=== PATIENT | female | born 1940 | race Caucasian/White ===

== ENCOUNTER 2019-10-22 12:15 | Outpatient (CLI) | payer OTHER, SELFPAY ==
[2019-10-22 13:01] LABS: Hematocrit 31.7 % (37.0-47.0); Mean Corpuscular HGB Conc 31.5 g/dl (32-36); Mean Corpuscular Hemoglobin 26.9 pg (26-34); Mean Corpuscular Volume 85.2 fl (80-100); Mean Platelet Volume 10.5 fl (7.4-10.4); Platelet Count Result 199 k/mm3 (150-375); Red Blood Count 3.72 M/mm3 (4.2-5.4); Red Cell Distribution Width 13.5 % (11.5-14.5); White Blood Count 4.8 K/mm3 (4.5-10.0)
[2019-10-22 13:12] LABS: Alanine Aminotransferase 12 U/L (4-35); Albumin Level 4.4 g/dL (3.5-5.1); Alkaline Phosphatase 46 U/L (38-126); Anion Gap 8 mmol/L (8-16); Aspartate Amino Transferase 24 U/L (14-36); Bilirubin,Total 0.4 mg/dL (0.2-1.3); Blood Urea Nitrogen 16 mg/dL (7-17); Calcium 8.9 mg/dL (8.4-10.2); Carbon Dioxide 34 mmol/L (22-30); Chloride 93 mmol/L (98-107); Cholesterol 202 mg/dL (0-200); Estimated Glomerular Filt Rate > 60; Glucose 124 mg/dL (65-105); HDL Direct 110 mg/dL; Potassium 3.3 mmol/L (3.4-5.0); Sodium 135 mmol/L (137-145); Triglycerides 75 mg/dL (<150)
[2019-10-22 13:19] LABS: Add Urine Microscopic? YES; Appearance Urine Clear (Clear); Bacteria Urine Trace /hpf; Bilirubin Urine Negative (Negative); Blood Urine Negative (Negative); Color Urine Yellow (Yellow); Glucose Urine UA Negative (Negative); Hyaline Casts Urine 15-19 /lpf; Ketones Urine Negative (Negative); Leukocyte Esterase Ur 1+ LEU/UL (Negative); Mucus Urine Rare /lpf; Nitrate Urine Negative (Negative); Protein Urine Negative (Negative); Specific Grav Ur 1.014 (1.001-1.035); Squamous Epithelial Cell Urine Few /hpf (Few); Urobilinogen Urine Negative mg/dL (<2.0)
[2019-10-22 13:22] LABS: LDL Cholesterol Direct 68 mg/dL
[2019-10-22 14:04] LABS: Vitamin D 25 Hydroxy 34.5 ng/mL
== END 2019-10-22 12:16 | disposition home or self-care (01) ==
PROVIDERS: PCP Internal Medicine; Visit Provider Nurse Practitioner
DX: R35.0 Frequency of micturition (principal); E55.9 Vitamin D deficiency, unspecified; D64.9 Anemia, unspecified; E78.5 Hyperlipidemia, unspecified; E03.9 Hypothyroidism, unspecified
CPT/HCPCS: 36415; 80053; 80061; 81001; 82306; 84443; 85027; 87086

== ENCOUNTER 2019-12-10 11:53 | Outpatient (CLI) | payer OTHER, SELFPAY ==
[2019-12-10 13:18] LABS: Add Urine Microscopic? YES; Appearance Urine Clear (Clear); Bacteria Urine Trace /hpf; Bilirubin Urine Negative (Negative); Blood Urine Negative (Negative); Color Urine Straw (Yellow); Glucose Urine UA Negative (Negative); Ketones Urine Negative (Negative); Leukocyte Esterase Ur Trace LEU/UL (Negative); Mucus Urine Rare /lpf; Nitrate Urine Negative (Negative); Protein Urine Negative (Negative); RBC Urine 0-2 /hpf (0-2); Squamous Epithelial Cell Urine Occasional /hpf (Few); Urobilinogen Urine Negative mg/dL (<2.0); WBC Urine 0-3 /hpf
== END 2019-12-10 11:54 | disposition home or self-care (01) ==
PROVIDERS: PCP Internal Medicine; Visit Provider Internal Medicine
DX: R30.0 Dysuria (principal)
CPT/HCPCS: 81001

== ENCOUNTER 2020-01-06 13:55 | Outpatient (CLI) | payer OTHER, SELFPAY ==
[2020-01-06 14:43] LABS: Add Urine Microscopic? YES; Appearance Urine Clear (Clear); Bacteria Urine Trace /hpf; Bilirubin Urine Negative (Negative); Blood Urine Negative (Negative); Color Urine Yellow (Yellow); Glucose Urine UA Negative (Negative); Ketones Urine Negative (Negative); Leukocyte Esterase Ur 2+ LEU/UL (Negative); Mucus Urine Rare /lpf; Nitrate Urine Negative (Negative); Protein Urine Negative (Negative); RBC Urine 0-2 /hpf (0-2); Specific Grav Ur 1.012 (1.001-1.035); Squamous Epithelial Cell Urine Few /hpf (Few); Urobilinogen Urine Negative mg/dL (<2.0); WBC Urine 0-3 /hpf
== END 2020-01-06 13:56 | disposition home or self-care (01) ==
PROVIDERS: PCP Internal Medicine; Visit Provider Internal Medicine
DX: N39.9 Disorder of urinary system, unspecified (principal)
CPT/HCPCS: 81001

== ENCOUNTER 2020-02-29 14:21 | Outpatient (CLI) | payer OTHER, SELFPAY ==
[2020-02-29 15:00] LABS: Hematocrit 30.8 % (37.0-47.0); Hemoglobin 9.9 g/dL (12.0-15.0)
[2020-02-29 15:14] LABS: Alanine Aminotransferase 12 U/L (4-35); Albumin Level 4.1 g/dL (3.5-5.1); Alkaline Phosphatase 51 U/L (38-126); Anion Gap 3 mmol/L (8-16); Aspartate Amino Transferase 25 U/L (14-36); Bilirubin,Total 0.2 mg/dL (0.2-1.3); Blood Urea Nitrogen 31 mg/dL (7-17); Calcium 9.1 mg/dL (8.4-10.2); Carbon Dioxide 33 mmol/L (22-30); Chloride 99 mmol/L (98-107); Cholesterol 184 mg/dL (0-200); Estimated Glomerular Filt Rate > 60; Glucose 97 mg/dL (65-105); HDL Direct 97 mg/dL; Potassium 3.8 mmol/L (3.4-5.0); Sodium 135 mmol/L (137-145); Triglycerides 66 mg/dL (<150)
[2020-02-29 15:25] LABS: LDL Cholesterol Direct 63 mg/dL
== END 2020-02-29 14:22 | disposition home or self-care (01) ==
LOC: ANHLAB 14:23
PROVIDERS: PCP Internal Medicine; Visit Provider Internal Medicine
DX: N39.0 Urinary tract infection, site not specified (principal); D64.9 Anemia, unspecified; I10 Essential (primary) hypertension; I50.30 Unspecified diastolic (congestive) heart failure; E03.9 Hypothyroidism, unspecified; E78.5 Hyperlipidemia, unspecified; Z79.899 Other long term (current) drug therapy
CPT/HCPCS: 36415; 80053; 80061; 84443; 85014; 85018; 87077; 87086; 87088

== ENCOUNTER 2020-10-03 14:12 | Outpatient (CLI) | payer OTHER, SELFPAY ==
[2020-10-03 14:57] LABS: Alanine Aminotransferase 18 U/L (4-35); Albumin Level 4.6 g/dL (3.5-5.1); Alkaline Phosphatase 55 U/L (38-126); Anion Gap 6 mmol/L (8-16); Aspartate Amino Transferase 29 U/L (14-36); Bilirubin,Total 0.5 mg/dL (0.2-1.3); Blood Urea Nitrogen 20 mg/dL (7-17); Calcium 9.3 mg/dL (8.4-10.2); Carbon Dioxide 32 mmol/L (22-30); Chloride 99 mmol/L (98-107); Cholesterol 178 mg/dL (0-200); Estimated Glomerular Filt Rate 53; Glucose 99 mg/dL (65-110); HDL Direct 105 mg/dL; Potassium 3.4 mmol/L (3.4-5.0); Sodium 137 mmol/L (137-145); Triglycerides 62 mg/dL (<150)
[2020-10-03 15:08] LABS: LDL Cholesterol Direct 52 mg/dL
[2020-10-03 15:34] LABS: Vitamin D 25 Hydroxy 45.4 ng/mL
== END 2020-10-03 14:13 | disposition home or self-care (01) ==
LOC: ANHLAB 14:17
PROVIDERS: PCP Internal Medicine; Visit Provider Nurse Practitioner
DX: E78.5 Hyperlipidemia, unspecified (principal); E03.9 Hypothyroidism, unspecified; E55.9 Vitamin D deficiency, unspecified
CPT/HCPCS: 36415; 80053; 80061; 82306; 84443

== ENCOUNTER 2021-03-18 06:57 | Inpatient (IN) | payer OTHER, SELFPAY ==
[2021-03-18] VITALS (31 sets, daily range): BP systolic 93–159; BP diastolic 49–111; PULSE 59–81; RESP 14–21; TEMP 36.3–36.4; O2SAT 94–100
--- NOTE | ~2021-03-18 | CT_ITS ---
EXAMINATION: CT abdomen pelvis w con DATE: 03/20/2021 11:54 INDICATION: Weight loss. Nausea. TECHNIQUE: Computed tomography (CT) of the abdomen and pelvis was performed with 100 mL Omnipaque 350 intravenous contrast. Automated exposure control and iterative reconstruction technique were employe d. The dose-length product was 170.14 mGy-cm. COMPARISON: None. FINDINGS: The visualized portions of the lung bases demonstrates mild atelectasis. There are small pl eural effusions. The heart size is normal. There are coronary artery calcifications. No pericardial e ffusion. A calcification the liver is consistent with old granulomatous disease. The spleen is normal . There are gallstones in the gallbladder, which is normal in size. The pancreas and adrenal glands a re normal. There are cysts in right kidney measuring up to 10 mm. There is moderate atrophy of left k idney. There is diverticulosis of the colon without evidence of diverticulitis. There is wall thicken ing and mucosal hyperemia from the distal transverse colon to the rectum. There are no dilated loops of bowel. The appendix is not visualized. There is a small volume of ascites. There are no pathologic ally enlarged lymph nodes. There is edema of the abdominal fat and body wall fat. There is thoracolum bar dextroscoliosis and severe spondylosis. IMPRESSION: 1. Wall thickening and mucosal hyperemia from the distal transverse colon to the rectum, consistent w ith colitis. 2. Small volume of ascites. 3. Small pleural effusions. Reviewed, dictated and finalized at location E. TEGY MANAGER IMPRESSION: 1. Wall thickening and mucosal hyperemia from the distal transverse colon to th e rectum, consistent with colitis. 2. Small volume of ascites. 3. Small pleural effusions.
--- NOTE | ~2021-03-18 | XR_ITS ---
EXAMINATION: XR barium swallow modified DATE: 03/20/2021 13:35 INDICATION: Dysphagia TECHNIQUE: Modified barium esophagram was performed by myself to administered fluoroscopy, in conjun ction with speech pathologist who administered barium in varying consistencies as per speech patholog ist documentation. This was recorded on tape. A single fluoroscopic spot image was recorded. The DAP for this procedure was 1.423 Gycm2. Fluoroscopy exposure time was 2.3 minutes. FINDINGS: Oral stage: Adequate function. Pharyngeal phase: Adequate function. Laryngeal penetration: Flash with thin liquids. Aspiration: None. Laryngeal sensitivity: Present. IMPRESSION: Flash laryngeal penetration with thin liquids. Please refer to speech pathologist finding s and specific feeding recommendations. Reviewed, dictated and finalized at location A. TION ECONOMIST IMPRESSION: Flash laryngeal penetration with thin liquids. Please refer to asha wang pathologist findings and specific feeding recommendations.
--- NOTE | ~2021-03-18 | XR_ITS ---
EXAMINATION: XR chest 1V portable INDICATION: Shortness of breath TECHNIQUE: Portable AP chest at 0858 hours COMPARISON: 08/24/2018 FINDINGS: The lungs are free of acute opacities. There is no pleural effusion or pneumothorax. The he art size is normal. Median sternotomy wires are consistent with prior cardiac surgery. Thoracolumbar scoliosis is noted. IMPRESSION: 1. No acute cardiopulmonary abnormality. Reviewed, dictated and finalized at location B. EL ORDINARY SEAMAN
[2021-03-18 07:04] LABS: Glucose Point of Care 31 mg/dl (65-105)
[2021-03-18] MEDS: DEXTROSE 50% 25 GM/50 ML SYRINGE IV PUSH (07:06)
[2021-03-18] MEDS: DEXTROSE 10% 1,000 ML 50 ML IV CONT (07:16)
[2021-03-18 07:34] LABS: Glucose Point of Care 126 mg/dl (65-105)
[2021-03-18 07:42] LABS: Alanine Aminotransferase 21 U/L (4-35); Alkaline Phosphatase 281 U/L (38-126); Anion Gap 10 mmol/L (8-16); Aspartate Amino Transferase 39 U/L (14-36); Bilirubin,Total 0.7 mg/dL (0.2-1.3); Blood Urea Nitrogen 72 mg/dL (7-17); Calcium 8.5 mg/dL (8.4-10.2); Carbon Dioxide 26 mmol/L (22-30); Chloride 94 mmol/L (98-107); Estimated CRCL calculation 17 ml/min; Estimated Glomerular Filt Rate 39; Glucose 253 mg/dL (65-110); Potassium 3.8 mmol/L (3.4-5.0); Sodium 130 mmol/L (137-145)
[2021-03-18 08:12] LABS: Basophils Percent Auto 0.3 % (0.2-1.2); Hematocrit 38.6 % (37.0-47.0); Hemoglobin 12.6 g/dL (12.0-15.0); Immature Granulocyte Absolute 0.03 K/mm3 (0.00-0.031); Immature Granulocyte Percent A 0.4 % (0-0.5); Lymphocytes Absolute Auto 0.58 K/mm3 (0.9-3.2); Lymphocytes Percent Auto 8.1 % (18.3-44.2); Mean Corpuscular HGB Conc 32.6 g/dl (32-36); Mean Corpuscular Hemoglobin 26.8 pg (26-34); Mean Corpuscular Volume 82.1 fl (80-100); Mean Platelet Volume 9.9 fl (7.4-10.4); Monocytes Absolute Auto 0.5 K/mm3 (0.1-0.6); Neutrophils Percent Auto 84.2 % (45.5-73.1); Platelet Count Result 214 k/mm3 (150-375); Red Cell Distribution Width 15.1 % (11.5-14.5); White Blood Count 7.1 K/mm3 (4.5-10.0)
[2021-03-18 08:18] LABS: Add Urine Microscopic? YES; Appearance Urine Clear (Clear); Bacteria Urine Trace /hpf; Bilirubin Urine Negative (Negative); Blood Urine Negative (Negative); Color Urine Straw (Yellow); Glucose Urine UA 1+ mg/dL (Negative); Ketones Urine Trace mg/dL (Negative); Leukocyte Esterase Ur 2+ LEU/UL (Negative); Mucus Urine Rare /lpf; Nitrate Urine Negative (Negative); Protein Urine Negative (Negative); RBC Urine 0-2 /hpf (0-2); Squamous Epithelial Cell Urine Few /hpf (Few); Transitional Epi Cells Urine Rare /hpf (None Seen); Urobilinogen Urine Negative mg/dL (<2.0); WBC Urine 31-50 /hpf
[2021-03-18] MEDS: SODIUM CHLORIDE 0.9% IV 1,000 ML 150 ML IV CONT (08:30)
[2021-03-18] MEDS: SODIUM CHLORIDE 0.9% IV 500 ML 999 ML IV CONT (08:30)
--- NOTE | 2021-03-18 10:13 | ED.GENADULT ---
HPI - General Adult General Chief complaint: Nausea/Vomiting/Diarrhea Stated complaint: N/V/D X 3 DAYS Time Seen by Provider: 03/18/21 07:00 Source: patient and family Mode of arrival: EMS Limitations: no limitations History of Present Illness HPI narrative: 81-year-old with a history of aortic valve replacement, who was brought in from home with complaints of marked weakness for last 4 days. Daughter who is at the bedside mentions that she is unable to walk eat or drink for last 3 days she states she is extremely nauseated. No significant vomiting. She is incontinent of stool. She denies any fever or chills. Daughter states that her elderly father stays with her and he is unable to manage. Related Data Allergies Allergy/AdvReac Type Severity Reaction Status Date / Time azithromycin Allergy Severe DIFFICULTY Verified 03/18/21 07:06 BREATHING ciprofloxacin Allergy Unknown Difficulty Verified 03/18/21 07:06 Breathing levofloxacin Allergy Unknown Rash Verified 03/18/21 07:06 Penicillins Allergy Unknown Rash Verified 03/18/21 07:06 erythromycin base AdvReac Unknown Nausea And Verified 03/18/21 10:14 Vomiting codeine AdvReac Difficulty Verified 03/18/21 07:06 Breathing Review of Systems Review of Systems: All systems reviewed & are unremarkable except as noted in HPI and below Constitutional: Constitutional: Reports no additional constitutional complaints Eyes: Eyes: Reports no additional eye complaints ENT: Reports system reviewed and no additional complaints, except as documented Cardiovascular: Cardiovascular: Reports no additional cardiovascular complaints Respiratory: Respiratory: Reports no additional respiratory complaints Gastrointestinal: Gastrointestinal: Reports diarrhea and Reports nausea Musculoskeletal: Musculoskeletal: Reports no additional musculoskeletal complaints PMFSH Past Medical History Medical History Dysphagia H/O coronary angiogram Hypokalemia Nausea Surgical History Surgical History H/O aortic valve replacement H/O cataract removal with insertion of prosthetic lens H/O esophagogastroduodenoscopy H/O: hysterectomy Hx of colonoscopy with polypectomy Family History Family History Father Hypertension Patient's father is Acute myocardial infarction Sibling Hypertension Mother Cerebrovascular accident Other Family history of bipolar disorder Social History Social History Smoking status: Never smoker Second hand tobacco smoke exposure: Yes Alcohol intake: never Substance use: never Gender identity (if verbalized by the patient): Female Exam Narrative: GENERAL: thin and frail , hard of hearing and in no acute distress. HEAD: Normocephalic, atraumatic. EYES: PERRLA and EOMI. NECK: Supple. CHEST: Clear to auscultation. No respiratory distress. HEART: Regular rate and rhythm. No murmur heard. Normal peripheral pulses. ABDOMEN: Soft, nontender, nondistended, normal active bowel sounds. EXTREMITIES: Normal range of motion. No edema. SKIN: Warm, dry, no rash. NEURO: No focal deficits. Alert and oriented x3. PSYCH: Normal mood and affect. Course Course Emergency Course: Initial blood sugar was 31 upon arrival I did give her half amp of D50 and started on D10 drip. Patient became more alert and was able to answer all the questions. I discussed lab work with the patient and the daughter who is at the bedside prefers her to be admitted. Discussed with Dr. Gomes agreed to admit the patient. Vital Signs Vital signs: Vital Signs Temperature 36.3 C L 03/18/21 07:08 Pulse Rate 63 03/18/21 07:08 Respiratory Rate 19 03/18/21 07:08 Blood Pressure 115/90 03/18/21 07:08 Pulse Oximetry 100 03/18/21 07:08
[2021-03-18 10:22] LABS: Glucose Point of Care 189 mg/dl (65-105)
[2021-03-18 10:56] LABS: SARS-CoV-2 RNA PCR Negative
--- NOTE | 2021-03-18 13:04 | PM.IMHP ---
H&P: HPI History of Present Illness Date/Time: 03/18/21 13:04 this is an 81-year-old female patient who was brought in from home with complaints of marked weakness for last 4 days. When I saw the patient the daughter was not at the bedside. The daughter had stepped out. However the ER noted that the daughter stated that the patient is unable to walk or eat or drink for the last 3 days. She has been extremely nauseated. No significant vomiting. She is incontinent of stool she denied any fever chills. The patient lives with her and he is unable to care for the patient at this time. The patient had a train front of her and I did attempt to get her to eat her mass potato his and she only wanted to drink water. Her COVID test was found to be negative. Her sodium level was found to be 130. Creatinine 1.3. Blood sugar 189 and previously 126. The patient was found have a UTI. She is very hard of hearing. Chest x-ray was read as no acute cardiopulmonary abnormality. The patient has multiple drug allergies and she had been started on Rocephin. IV fluids. The patient was initially admitted to inpatient status and was changed to observation. Date of service 03/18/2021. Chief Complaint: Weakness Review of Systems Constitutional: Constitutional: Reports as per HPI and Reports no additional constitutional complaints Eyes: Eyes: Reports as per HPI and Reports no additional eye complaints ENT: Reports system reviewed and no additional complaints, except as documented and Reports Normal hearing present Cardiovascular: Cardiovascular: Reports no additional cardiovascular complaints Respiratory: Respiratory: Reports as per HPI and Reports no additional respiratory complaints Gastrointestinal: Gastrointestinal: Reports as per HPI and Reports no additional gastrointestinal complaints Genitourinary: Genitourinary: Reports no additional female genitourinary complaints Musculoskeletal: Musculoskeletal: Reports no additional musculoskeletal complaints Integumentary/Breasts: Skin/Breast: Reports system reviewed and no additional complaints, except as docu Neurologic: Reports system reviewed and no additional complaints, except as documented and Reports Normal hearing present Psychiatric: Psychiatric: Reports no additional psychiatric complaints and Reports as per HPI Hematologic/Lymphatic: Hematologic/Lymphatic: Reports no additional hematologic/lymphatic complaints Allergic/Immunologic: Allergic/Immunologic: Reports no additional allergic/immunologic complaints PMFSH Past Medical History Medical History Dysphagia H/O coronary angiogram Hypertension, essential Hypokalemia Hypothyroidism, unspecified Mixed hyperlipidemia Nausea Surgical History Surgical History H/O aortic valve replacement H/O cataract removal with insertion of prosthetic lens H/O esophagogastroduodenoscopy H/O: hysterectomy Hx of colonoscopy with polypectomy Family History Family History Father Hypertension Patient's father is Acute myocardial infarction Sibling Hypertension Mother Cerebrovascular accident Other Family history of bipolar disorder Social History Social History (Updated 03/18/21 @ 19:56 by Shira Herman NP) Social History: The patient lives with her . 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 She does not use any alcohol marijuana or illicit drugs. 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 Code status full code Smoking status: Never smoker Second hand tobacco smoke exposure: Yes Alcohol intake: never Substance use: never Gender identity (if verbalized by the patient): Female Spiritual care concerns: No Meds Home Medications and Allergies Home Medications Medication Instr
[2021-03-18] MEDS: ONDANSETRON INJ 4 MG/2 ML VIAL IV PUSH (17:51)
--- NOTE | 2021-03-18 18:50 | ADMGEN ---
This patient, Sandy Myrick, was admitted to Medical Room 255-01. Patient oriented to hospital policies and general routines including ID bracelet, bed and alarms, visiting hours, pain management, procedures, bathroom and other care routines, personal items, smoking policy, room service/diet, and visiting hours. Information on how to activate the Rapid Response Team has been discussed. Patient are encouraged to report perceived risks to care and to ask questions if they do not understand what they are told or what they should do.
[2021-03-18] MEDS: LACTATED RINGERS 1,000 ML 100 ML IV CONT (19:56)
[2021-03-18 20:53] LABS: Glucose Point of Care 150 mg/dl (65-105)
[2021-03-18] MEDS: SUCRALFATE SUSP 100 MG/ML 10 ML UDC 1000 MG BY MOUTH (20:53)
[2021-03-18] MEDS: PANTOPRAZOLE 40 MG TABLET PO (20:53)
[2021-03-18] MEDS: SIMVASTATIN 20 MG TABLET BY MOUTH (20:53)
[2021-03-19] VITALS: BP 147/81; PULSE 67; RESP 21; TEMP 36.4; O2SAT 100; BMI 14.5
[2021-03-19 04:00] VITALS: BP 168/60; PULSE 70; RESP 21; TEMP 36.2; O2SAT 100
[2021-03-19] MEDS: LACTATED RINGERS 1,000 ML 100 ML IV CONT ×2 (04:40→16:12)
[2021-03-19 05:29] LABS: Basophils Percent Auto 0.5 % (0.2-1.2); Eosinophils Absolute Auto 0.1 K/mm3 (0-0.3); Eosinophils Percent Auto 1.8 % (0-4.4); Hematocrit 33.5 % (37.0-47.0); Hemoglobin 10.9 g/dL (12.0-15.0); Immature Granulocyte Absolute 0.03 K/mm3 (0.00-0.031); Immature Granulocyte Percent A 0.8 % (0-0.5); Lymphocytes Absolute Auto 0.59 K/mm3 (0.9-3.2); Lymphocytes Percent Auto 14.9 % (18.3-44.2); Mean Corpuscular HGB Conc 32.5 g/dl (32-36); Mean Corpuscular Hemoglobin 27.3 pg (26-34); Mean Platelet Volume 9.8 fl (7.4-10.4); Monocytes Absolute Auto 0.6 K/mm3 (0.1-0.6); Monocytes Percent Auto 15.9 % (2.6-8.5); Neutrophils Absolute Auto 2.6 K/mm3 (1.3-6.7); Neutrophils Percent Auto 66.1 % (45.5-73.1); Platelet Count Result 164 k/mm3 (150-375); Red Blood Count 3.99 M/mm3 (4.2-5.4); Red Cell Distribution Width 14.8 % (11.5-14.5)
[2021-03-19] MEDS: LEVOTHYROXINE SODIUM 25 MCG TABLET BY MOUTH (05:56)
[2021-03-19] MEDS: SUCRALFATE SUSP 100 MG/ML 10 ML UDC 1000 MG BY MOUTH ×4 (05:56→21:18)
[2021-03-19] MEDS: DEXTROSE 10% 1,000 ML 50 ML IV CONT (05:58)
[2021-03-19 06:02] LABS: Alanine Aminotransferase 18 U/L (4-35); Albumin Level 3.1 g/dL (3.5-5.1); Alkaline Phosphatase 183 U/L (38-126); Anion Gap 2 mmol/L (8-16); Aspartate Amino Transferase 32 U/L (14-36); Bilirubin,Total 0.4 mg/dL (0.2-1.3); Blood Urea Nitrogen 27 mg/dL (7-17); Calcium 8.1 mg/dL (8.4-10.2); Carbon Dioxide 31 mmol/L (22-30); Chloride 97 mmol/L (98-107); Estimated CRCL calculation 27 ml/min; Estimated Glomerular Filt Rate > 60; Glucose 165 mg/dL (65-110); Lactate Dehydrogenase 393 U/L (313-618); Lipase 73 U/L (23-300); Magnesium 1.9 mg/dL (1.6-2.3); Potassium 2.6 mmol/L (3.4-5.0); Sodium 130 mmol/L (137-145)
[2021-03-19] MEDS: POTASSIUM CHLORIDE 20 MEQ PACKET (FOR LIQUID) 40 MEQ PO (06:17)
--- NOTE | 2021-03-19 08:00 | PCOTNOTE ---
Attempted OT evaluation this AM. Patient adamantly declines any/all activity despite encouragement and education on the benefits of therapy. She states that she is too sick and dizzy right now. RN updated.
[2021-03-19 08:40] LABS: Glucose Point of Care 128 mg/dl (65-105)
[2021-03-19] MEDS: FLUTICASONE PROPIONATE 0.05% NA SPR 16 GM BTL (*BKC) 2 SPRAY NASAL (09:20)
[2021-03-19] MEDS: NITROGLYCERIN 0.4 MG/HR PATCH 1 PATCH TOPICAL (09:21)
[2021-03-19] MEDS: CLOPIDOGREL BISULFATE 75 MG TABLET PO (09:21)
[2021-03-19] MEDS: METOPROLOL TARTRATE 25 MG TABLET BY MOUTH (09:21)
[2021-03-19 10:00] VITALS: BP 108/90; PULSE 65; RESP 18; TEMP 36.8; O2SAT 100
[2021-03-19] MEDS: POTASSIUM CHLORIDE INJ 40 MEQ in SODIUM CHLORIDE 0.9% IV 500 ML 130 MEQ IVPB (10:30)
--- NOTE | 2021-03-19 11:16 | PM.IMPN ---
Progress Note: A&P Assessment and Plan (1) UTI (urinary tract infection): Code(s): N39.0 - Urinary tract infection, site not specified Status: Acute Assessment and Plan: Patient was started on Rocephin. Blood and urine cultures are pending. (2) LUCA (acute kidney injury): Code(s): N17.9 - Acute kidney failure, unspecified Status: Acute Assessment and Plan: Continue with IV fluids. (3) Hypertension, essential: Code(s): I10 - Essential (primary) hypertension Status: Chronic Assessment and Plan: Hold lisinopril and continue with metoprolol. (4) Hyponatremia: Code(s): E87.1 - Hypo-osmolality and hyponatremia Status: Acute Assessment and Plan: Could be related to her dehydration. (5) Hypothyroidism, unspecified: Qualifiers: Hypothyroidism type: acquired Qualified Code(s): E03.9 - Hypothyroidism, unspecified Code(s): E03.9 - Hypothyroidism, unspecified Status: Chronic Assessment and Plan: Continue with levothyroxine. (6) Hyperlipidemia, unspecified: Qualifiers: Hyperlipidemia type: unspecified Qualified Code(s): E78.5 - Hyperlipidemia, unspecified Code(s): E78.5 - Hyperlipidemia, unspecified Status: Acute Assessment and Plan: Continue with simvastatin check liver enzymes. (7) Dysphagia: Code(s): R13.10 - Dysphagia, unspecified Status: Acute Assessment and Plan: Consult GI pt has history of presbyesophagus and swallow issues Order CT scan of abdomen to check for pathology (8) Acute hypokalemia: Code(s): E87.6 - Hypokalemia Status: Acute Assessment and Plan: pt has been off her food potassium is low replace pt loks weak Subjective Date/time seen: 03/19/21 11:16 Interval history: INTERVAL HISTORY : 81-year-old female patient who was brought in from home with complaints of marked weakness for last 4 days. When I saw the patient the daughter was not at the bedside. However the ER noted that the daughter stated that the patient is unable to walk or eat or drink for the last 3 days. 03/19/2021 I spoke to daughter on the phone. Pt follows with Dr Lawton- GI team- pt not been to the office for one year due to transport and covid scare. Pt has been doing zoom calls with PCP. Pt here with nausea, loss of appetite and weight loss. I will consult GI team and order CT abdominal scan. Review of Systems Review of Systems: All systems reviewed & are unremarkable except as noted in HPI and below Exam Const: General: tired appearing and other (Thin malnournished ) Resp: Effort & Inspection: no respiratory distress Auscultation: no rhonchi and no wheezes Cardio: Rate: regular rate Rhythm: regular rhythm GI: Inspection: normal to inspection GI Palp: No abdominal tenderness, No Guarding due to palpation present (GI) and No Hepatomegaly present Auscultation: normal bowel sounds Neuro: General: oriented to person Objective Data Vital Signs Vital Signs: Vital Signs - 24 hr 03/18/21 12:03 03/18/21 12:17 03/18/21 12:39 Temperature Pulse Rate 59 L 78 68 Respiratory Rate 16 Blood Pressure 135/52 L Pulse Oximetry 97 03/18/21 12:45 03/18/21 12:46 03/18/21 13:00 Temperature Pulse Rate 74 69 81 Respiratory Rate Blood Pressure 136/64 Pulse Oximetry 03/18/21 13:01 03/18/21 13:15 03/18/21 13:16 Temperature Pulse Rate 77 70 73 Respiratory Rate Blood Pressure 139/71 130/111 H Pulse Oximetry 03/18/21 13:30 03/18/21 13:32 03/18/21 13:45 Temperature Pulse Rate 66 67 67 Respiratory Rate Blood Pressure 142/56 H Pulse Oximetry 03/18/21 13:46 03/18/21 14:05 03/18/21 14:15 Temperature Pulse Rate 67 68 69 Respiratory Rate Blood Pressure 142/55 H Pulse Oximetry 03/18/21 14:16 03/18/21 14:51 03/18/21 15:00 Temperature Pulse Rate 69 72 77 Respiratory Rate B
[2021-03-19] MEDS: CHOLECALCIFEROL 1,000 UNITS TABLET 1000 UNITS PO (11:44)
[2021-03-19 11:47] LABS: Glucose Point of Care 163 mg/dl (65-105)
[2021-03-19 12:43] VITALS: BMI 14.5
--- NOTE | 2021-03-19 12:52 | PCPTNOTE ---
attempted PT evaluation 12:45-- pt refused, stated she was Ill and not able to do anything right now.
--- NOTE | 2021-03-19 13:10 | PCOTNOTE ---
Attempted OT evaluation, patient reports does not feel well and does not want to participate at this time. will follow.
[2021-03-19 14:00] VITALS: BP 146/57; PULSE 73; RESP 16; TEMP 36.8; O2SAT 100
--- NOTE | 2021-03-19 16:03 | WPDGICN ---
Assessment and Plan Assessment and plan (1) Nausea: Code(s): R11.0 - Nausea Status: Acute Assessment and Plan: although she is chronically nauseated and apparently still taking Carafate for that, she apparently has been much more symptomatic over the past several days to the point that she is also dehydrated from minimal intake. I think that we could discontinue sucralfate. I do not think that it is helping her much (2) Weakness: Code(s): R53.1 - Weakness Status: Acute Assessment and Plan: she states that she has not been able to get around well the last few days because of weakness. She does however still live independently with her (3) Dehydration: Code(s): E86.0 - Dehydration Status: Acute Assessment and Plan: BUN was surprisingly was not as high as I might have expected (4) Dysphagia: Code(s): R13.10 - Dysphagia, unspecified Status: Acute Assessment and Plan: she does not think that her swallowing problems are any worse than they have been chronically, repeating that she just needs to eat slowly. She again was emphatic that she does not want endoscopy (5) Acute hypokalemia: Code(s): E87.6 - Hypokalemia Status: Acute Assessment and Plan: this has already been addressed by the staff. She is chronically on furosemide which I suppose she does not need at this point GI Consult Note Consult date/time: 03/19/21 16:03 HPI: Sandy Myrick is a 81 year old female was brought to the hospital with complaints of severe weakness. The family had reported that she had been unable to eat or drink for the last few days and had been very weak. I had seen the patient in the past regarding problems with swallowing. She has a history of an esophageal stricture but also a history consistent with lupus. She had a positive JOANNE and she had been nauseous phenomenon and we were concerned about possible scleroderma because she had symptoms of esophageal motility disorder. Serology was negative for scleroderma. She states that it takes her time to eat but she does not feel that food is getting stuck. she states that she remembers me in fact she her face lift up when I removed my mask. She was able to remember most of our past medical an counters and she was quick to state that she did not want to have anything down her throat. She was referring to EGD which I had suggested some time back when she was losing weight. She denies abdominal pain she states she is often nauseated and simply cannot force herself to eat. A CT scan has been ordered but not yet done. When I saw her in 2011 she was a little over 100 lb. In 2019 she was 80 lb about which she weighs now . In other words her weight has not changed that much in the last 2 years Review of Systems Review of Systems: All systems reviewed & are unremarkable except as noted in HPI and below [facility] Past Medical History Medical History Dysphagia H/O coronary angiogram Hypertension, essential Hypokalemia Hypothyroidism, unspecified Mixed hyperlipidemia Nausea Surgical History Surgical History H/O aortic valve replacement H/O cataract removal with insertion of prosthetic lens H/O esophagogastroduodenoscopy H/O: hysterectomy Hx of colonoscopy with polypectomy Family History Family History Father Hypertension Patient's father is Acute myocardial infarction Sibling Hypertension Mother Cerebrovascular accident Other Family history of bipolar disorder Social History Social History Social History: The patient lives with her . 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 She does not use any alcohol marijuana or illicit
[2021-03-19] MEDS: ONDANSETRON INJ 4 MG/2 ML VIAL IV PUSH (16:13)
[2021-03-19 16:29] LABS: Glucose Point of Care 141 mg/dl (65-105)
[2021-03-19 18:00] VITALS: BP 151/59; PULSE 70; RESP 18; TEMP 36.4; O2SAT 99
[2021-03-19 20:00] VITALS: BP 141/63; PULSE 69; RESP 20; TEMP 36.4; O2SAT 99
[2021-03-19 21:11] LABS: Glucose Point of Care 159 mg/dl (65-105)
[2021-03-19] MEDS: SIMVASTATIN 20 MG TABLET BY MOUTH (21:18)
[2021-03-19] MEDS: PANTOPRAZOLE 40 MG TABLET PO (21:19)
[2021-03-20] VITALS (8 sets, daily range): BP systolic 133–160; BP diastolic 53–70; PULSE 71–82; RESP 14–21; TEMP 36.4–37.1; O2SAT 98–100
[2021-03-20] MEDS: DEXTROSE 10% 1,000 ML 50 ML IV CONT (03:45)
[2021-03-20] MEDS: LACTATED RINGERS 1,000 ML 100 ML IV CONT (03:47)
[2021-03-20] MEDS: SUCRALFATE SUSP 100 MG/ML 10 ML UDC 1000 MG BY MOUTH ×2 (05:49→20:54)
[2021-03-20] MEDS: LEVOTHYROXINE SODIUM 25 MCG TABLET BY MOUTH (05:49)
[2021-03-20 07:54] LABS: Glucose Point of Care 128 mg/dl (65-105)
[2021-03-20] MEDS: NITROGLYCERIN 0.4 MG/HR PATCH 1 PATCH TOPICAL (08:12)
[2021-03-20] MEDS: METOPROLOL TARTRATE 25 MG TABLET BY MOUTH (08:14)
[2021-03-20] MEDS: CLOPIDOGREL BISULFATE 75 MG TABLET PO (08:14)
--- NOTE | 2021-03-20 09:42 | PCOTNOTE ---
Attempted OT evaluation this AM. Patient declined despite encouragement and eduction on the benefits of therapy. Stating, I can't do it today.
--- NOTE | 2021-03-20 10:27 | PCPTNOTE ---
Attempted PT evaluation this AM. Patient declined despite encouragement and eduction on the benefits of therapy. Stating, I can't do it today.
--- NOTE | 2021-03-20 11:26 | PM.IMPN ---
Progress Note: A&P Assessment and Plan (1) UTI (urinary tract infection): Code(s): N39.0 - Urinary tract infection, site not specified Status: Acute Assessment and Plan: Patient was started on Rocephin. Blood is pending, urine culture is positive for ecoli Ecoli UTI (2) LUCA (acute kidney injury): Code(s): N17.9 - Acute kidney failure, unspecified Status: Acute Assessment and Plan: Continue with IV fluids. Pt is not eating much. (3) Hypertension, essential: Code(s): I10 - Essential (primary) hypertension Status: Chronic Assessment and Plan: Hold lisinopril and continue with metoprolol. (4) Hyponatremia: Code(s): E87.1 - Hypo-osmolality and hyponatremia Status: Acute Assessment and Plan: Could be related to her dehydration. Sodium is 130. continue to monitor BMP (5) Hypothyroidism, unspecified: Qualifiers: Hypothyroidism type: acquired Qualified Code(s): E03.9 - Hypothyroidism, unspecified Code(s): E03.9 - Hypothyroidism, unspecified Status: Chronic Assessment and Plan: Continue with levothyroxine. (6) Hyperlipidemia, unspecified: Qualifiers: Hyperlipidemia type: unspecified Qualified Code(s): E78.5 - Hyperlipidemia, unspecified Code(s): E78.5 - Hyperlipidemia, unspecified Status: Acute Assessment and Plan: Continue with simvastatin check liver enzymes. (7) Dysphagia: Code(s): R13.10 - Dysphagia, unspecified Status: Acute Assessment and Plan: Consult GI pt has history of presbyesophagus and swallow issues Order CT scan of abdomen to check for pathology Order swallow assessment today (8) Acute hypokalemia: Code(s): E87.6 - Hypokalemia Status: Acute Assessment and Plan: Pt has been off her food potassium is low replace pt looks weak. monitor BMP and potassium levels Subjective Date/time seen: 03/20/21 11:26 Interval history: INTERVAL HISTORY : 81-year-old female patient who was brought in from home with complaints of marked weakness for last 4 days. When I saw the patient the daughter was not at the bedside. However the ER noted that the daughter stated that the patient is unable to walk or eat or drink for the last 3 days. 03/19/2021 I spoke to daughter on the phone. Pt follows with Dr Lawton- GI team- pt not been to the office for one year due to transport and covid scare. Pt has been doing zoom calls with PCP. Pt here with nausea, loss of appetite and weight loss. I will consult GI team and order CT abdominal scan. 03/20/2021: pt seen by GI follow recommendation ? if pt wants EGD or not pt is going for her CT scan today continue to monitor potassium level and swallow evaluation today. looks like swallowing is a chronic problem Review of Systems Review of Systems: All systems reviewed & are unremarkable except as noted in HPI and below Exam Const: General: tired appearing and other (Thin malnournished ) Orientation/consciousness: oriented to person Resp: Effort & Inspection: no respiratory distress Auscultation: no rhonchi and no wheezes Cardio: Rate: regular rate Rhythm: regular rhythm GI: Inspection: normal to inspection Auscultation: normal bowel sounds Neuro: General: oriented to person Objective Data Vital Signs Vital Signs: Vital Signs - 24 hr 03/19/21 14:00 03/19/21 18:00 03/19/21 20:00 Temperature 36.8 C 36.4 C L 36.4 C Pulse Rate 73 70 69 Respiratory Rate 16 18 20 Blood Pressure 146/57 H 151/59 H 141/63 H Pulse Oximetry 100 99 99 03/20/21 00:00 03/20/21 04:00 03/20/21 08:14 Temperature 36.4 C L 37.1 C Pulse Rate 71 81 82 Respiratory Rate 21 H 20 Blood Pressure 141/65 H 151/66 H Pulse Oximetry 100 99 03/20/21 08:15 Temperature 36.4 C Pulse Rate 73 Respiratory Rate 18 Blood Pressure 160/66 H Pulse Oximetry 99 Intake/Output Intake/Output: Intake & Output 03/17/21
[2021-03-20 11:36] LABS: Glucose Point of Care 122 mg/dl (65-105)
[2021-03-20 12:23] LABS: Potassium 3.6 mmol/L (3.4-5.0)
[2021-03-20] MEDS: metroNIDAZOLE 500 MG/ISO 100ML 500 MG/100 ML BAG 100 MG IVPB ×2 (16:00→20:58)
[2021-03-20 16:21] LABS: Glucose Point of Care 99 mg/dl (65-105)
[2021-03-20] MEDS: SIMVASTATIN 20 MG TABLET BY MOUTH (20:54)
[2021-03-20] MEDS: PANTOPRAZOLE 40 MG TABLET PO (20:55)
[2021-03-20 23:33] LABS: Glucose Point of Care 76 mg/dl (65-105)
[2021-03-21] VITALS (7 sets, daily range): BP systolic 119–180; BP diastolic 53–84; PULSE 69–113; RESP 14–21; TEMP 36.2–36.6; O2SAT 95–100
[2021-03-21] MEDS: metroNIDAZOLE 500 MG/ISO 100ML 500 MG/100 ML BAG 100 MG IVPB ×3 (06:26→21:32)
[2021-03-21] MEDS: SUCRALFATE SUSP 100 MG/ML 10 ML UDC 1000 MG BY MOUTH ×2 (06:26→21:19)
[2021-03-21] MEDS: LEVOTHYROXINE SODIUM 25 MCG TABLET BY MOUTH (06:27)
[2021-03-21] MEDS: ONDANSETRON INJ 4 MG/2 ML VIAL IV PUSH ×2 (06:31→21:55)
[2021-03-21 07:55] LABS: Glucose Point of Care 89 mg/dl (65-105)
--- NOTE | 2021-03-21 08:15 | PCOTNOTE ---
Attempted OT evaluation, patient declined working with therapy this AM. will attempt at later time.
[2021-03-21] MEDS: CHOLECALCIFEROL 1,000 UNITS TABLET 1000 UNITS PO (08:44)
[2021-03-21] MEDS: METOPROLOL TARTRATE 25 MG TABLET BY MOUTH (08:45)
[2021-03-21] MEDS: CLOPIDOGREL BISULFATE 75 MG TABLET PO (08:45)
[2021-03-21] MEDS: NITROGLYCERIN 0.4 MG/HR PATCH 1 PATCH TOPICAL (08:46)
[2021-03-21 10:20] LABS: Anion Gap 1 mmol/L (8-16); Blood Urea Nitrogen 10 mg/dL (7-17); Calcium 8.2 mg/dL (8.4-10.2); Carbon Dioxide 29 mmol/L (22-30); Chloride 98 mmol/L (98-107); Estimated CRCL calculation 36 ml/min; Estimated Glomerular Filt Rate > 60; Glucose 109 mg/dL (65-110); Potassium 3.7 mmol/L (3.4-5.0); Sodium 128 mmol/L (137-145)
[2021-03-21 10:51] LABS: Magnesium 1.4 mg/dL (1.6-2.3)
--- NOTE | 2021-03-21 11:07 | PM.IMPN ---
Progress Note: A&P Assessment and Plan (1) UTI (urinary tract infection): Code(s): N39.0 - Urinary tract infection, site not specified Status: Acute Assessment and Plan: Patient was started on Rocephin. Blood is pending, urine culture is positive for ecoli Ecoli UTI (2) LUCA (acute kidney injury): Code(s): N17.9 - Acute kidney failure, unspecified Status: Acute Assessment and Plan: Continue with IV fluids. Pt is not eating much. (3) Hypertension, essential: Code(s): I10 - Essential (primary) hypertension Status: Chronic Assessment and Plan: Hold lisinopril and continue with metoprolol. (4) Hyponatremia: Code(s): E87.1 - Hypo-osmolality and hyponatremia Status: Acute Assessment and Plan: Could be related to her dehydration. Sodium is 130. continue to monitor BMP (5) Hypothyroidism, unspecified: Qualifiers: Hypothyroidism type: acquired Qualified Code(s): E03.9 - Hypothyroidism, unspecified Code(s): E03.9 - Hypothyroidism, unspecified Status: Chronic Assessment and Plan: Continue with levothyroxine. (6) Hyperlipidemia, unspecified: Qualifiers: Hyperlipidemia type: unspecified Qualified Code(s): E78.5 - Hyperlipidemia, unspecified Code(s): E78.5 - Hyperlipidemia, unspecified Status: Acute Assessment and Plan: Continue with simvastatin check liver enzymes. (7) Dysphagia: Code(s): R13.10 - Dysphagia, unspecified Status: Acute Assessment and Plan: Consult GI pt has history of presbyesophagus and swallow issues Order CT scan of abdomen to check for pathology Order swallow assessment today (8) Acute hypokalemia: Code(s): E87.6 - Hypokalemia Status: Acute Assessment and Plan: Pt has been off her food potassium is low replace pt looks weak. monitor BMP and potassium levels Subjective Date/time seen: 03/21/21 11:07 Interval history: INTERVAL HISTORY : 81-year-old female patient who was brought in from home with complaints of marked weakness for last 4 days. When I saw the patient the daughter was not at the bedside. However the ER noted that the daughter stated that the patient is unable to walk or eat or drink for the last 3 days. 03/19/2021 I spoke to daughter on the phone. Pt follows with Dr Lawton- GI team- pt not been to the office for one year due to transport and covid scare. Pt has been doing zoom calls with PCP. Pt here with nausea, loss of appetite and weight loss. I will consult GI team and order CT abdominal scan. 03/20/2021: pt seen by GI follow recommendation ? if pt wants EGD or not pt is going for her CT scan today continue to monitor potassium level and swallow evaluation today. looks like swallowing is a chronic problem 03/21/2021 Interval history: patient appear chronically ill and undernourish, weak and tired, patient is refusing PT OT for last 3 days, patient was seen by GI for persistent nausea suspect from continued use of Carafate patient has been on hold, her urine culture is growing E coli and coagulase-negative Staph patient being treated with ceftriaxone will continue and monitor. Review of Systems Review of Systems: All systems reviewed & are unremarkable except as noted in HPI and below Exam Narrative: elderly frail chronically ill under nourished Patient is comfortable, NAD HEENT: eyes are clear and none icteric LUNGS: normal respiratory effort ABD: not distended Lower extremities: no edema SKIN: nonjaundiced Neuro: grossly intact. Objective Data Vital Signs Vital Signs: Vital Signs - 24 hr 03/20/21 12:15 03/20/21 16:00 03/20/21 20:00 Temperature 98.1 F 97.9 F 97.9 F Pulse Rate 76 77 74 Respiratory Rate 14 18 20 Blood Pressure 142/70 H 160/69 H 133/53 L Pulse Oximetry 98 99 99 03/20/21 20:14 03/21/21 00:00 03/21/21 04:00 Temperature 97.2 F L 97.7 F Pulse Rate 87 113 H Respir
[2021-03-21 11:49] LABS: Glucose Point of Care 100 mg/dl (65-105)
[2021-03-21] MEDS: cefTRIAXone 2 GM in SODIUM CHLORIDE 0.9% IV 100 ML 200 ML IVPB (12:19)
--- NOTE | 2021-03-21 13:15 | WPDGIPROGNO ---
Progress Note: A&P Assessment and Plan (1) Nausea: Code(s): R11.0 - Nausea Status: Acute Assessment and Plan: although she is chronically nauseated and apparently still taking Carafate for that, she apparently has been much more symptomatic over the past several days to the point that she is also dehydrated from minimal intake. I think that we could discontinue sucralfate. I do not think that it is helping her much (2) Weakness: Code(s): R53.1 - Weakness Status: Acute Assessment and Plan: she states that she has not been able to get around well the last few days because of weakness. She does however still live independently with her (3) Dehydration: Code(s): E86.0 - Dehydration Status: Acute Assessment and Plan: BUN was surprisingly was not as high as I might have expected (4) Dysphagia: Code(s): R13.10 - Dysphagia, unspecified Status: Acute Assessment and Plan: she does not think that her swallowing problems are any worse than they have been chronically, repeating that she just needs to eat slowly. She again was emphatic that she does not want endoscopy. The speech therapy report of her modified swallow indicates that she is missing her lower dentures. She was unable to efficiently masticate and formulate a bolus with a solid trial and even putting was delayed. During pharyngeal stage with loop thin liquids she had very slight laryngeal penetration. Because of her dentition, pureed diet was recommended (5) Acute hypokalemia: Code(s): E87.6 - Hypokalemia Status: Acute Assessment and Plan: this has already been addressed by the staff. She is chronically on furosemide which I suppose she does not need at this point Subjective Date/time seen: 03/21/21 13:15 Patient is sitting with her meal tray in front of her. It consists of pure read food as had been recommended by speech therapy. She is not interested in any of it. She states that she just has a very difficult time swallowing and chewing. Modified barium swallow did show some difficulty with mastication and flash laryngeal/pharyngeal penetration. Consequently a pureed diet was recommended. She asked if I had any other suggestions. I told her that I do not know there is much that can be done. 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 She has steadfastly refused any endoscopy to investigate her issues. Fortunately she has maintained her weight at about 80 lb for the past year or so Review of Systems Review of Systems: All systems reviewed & are unremarkable except as noted in HPI and below Exam Const: General: comfortable and alert Nutritional Appearance: thin Orientation/consciousness: patient oriented x3 HENMT: Teeth and gingiva: edentulous and other ( dentures missing) Resp: Auscultation: clear to auscultation bilaterally Cardio: Rhythm: regular rhythm GI: GI Palp: No abdominal tenderness and No Guarding due to palpation present (GI) Auscultation: normal bowel sounds Neuro: General: patient oriented x3 Objective Data Vital Signs Vital Signs: Vital Signs - 24 hr 03/20/21 16:00 03/20/21 20:00 03/20/21 20:14 Temperature 36.6 C 36.6 C Pulse Rate 77 74 Respiratory Rate 18 20 Blood Pressure 160/69 H 133/53 L Pulse Oximetry 99 99 99 03/21/21 00:00 03/21/21 04:00 03/21/21 08:00 Temperature 36.2 C L 36.5 C 36.6 C Pulse Rate 87 113 H 91 Respiratory Rate 21 H 20 15 Blood Pressure 180/84 H 141/82 H 119/59 L Pulse Oximetry 100 98 99 03/21/21 08:45 03/21/21 12:00 Temperature 36.2 C L Pulse Rate 84 81 Respiratory Rate 14 Blood Pressure 152/62 H Pulse Oximetry 99 Intake/Output Intake/Output: Intake & Output 03/18/21 03/19/21 03/20/21 03/21/21 23:59 23:59 23:59 23:59 Intake Total 1450 4380 3760 830 Output Total 150 [place]
[2021-03-21 16:51] LABS: Glucose Point of Care 107 mg/dl (65-105)
[2021-03-21] MEDS: SIMVASTATIN 20 MG TABLET BY MOUTH (21:20)
[2021-03-21] MEDS: PANTOPRAZOLE 40 MG TABLET PO (21:20)
[2021-03-21 22:27] LABS: Glucose Point of Care 20 mg/dl (65-105)
[2021-03-21 22:27] LABS: Glucose Point of Care 66 mg/dl (65-105)
[2021-03-21 22:45] LABS: Glucose Point of Care 121 mg/dl (65-105)
[2021-03-22] VITALS (10 sets, daily range): BP systolic 113–163; BP diastolic 49–76; PULSE 72–102; RESP 17–20; TEMP 36.3–37.1; O2SAT 92–99
[2021-03-22] MEDS: metroNIDAZOLE 500 MG/ISO 100ML 500 MG/100 ML BAG 100 MG IVPB ×3 (05:09→21:07)
[2021-03-22] MEDS: SUCRALFATE SUSP 100 MG/ML 10 ML UDC 1000 MG BY MOUTH ×4 (05:12→20:19)
[2021-03-22] MEDS: LEVOTHYROXINE SODIUM 25 MCG TABLET BY MOUTH (05:16)
[2021-03-22 06:24] LABS: Anion Gap 1 mmol/L (8-16); Blood Urea Nitrogen 8 mg/dL (7-17); Calcium 7.8 mg/dL (8.4-10.2); Carbon Dioxide 29 mmol/L (22-30); Chloride 97 mmol/L (98-107); Estimated CRCL calculation 42 ml/min; Estimated Glomerular Filt Rate > 60; Glucose 94 mg/dL (65-110); Potassium 3.4 mmol/L (3.4-5.0); Sodium 127 mmol/L (137-145)
[2021-03-22 07:45] LABS: Glucose Point of Care 91 mg/dl (65-105)
[2021-03-22] MEDS: NITROGLYCERIN 0.4 MG/HR PATCH 1 PATCH TOPICAL (09:44)
[2021-03-22] MEDS: POTASSIUM CHLORIDE 20 MEQ PACKET (FOR LIQUID) PO (09:44)
[2021-03-22] MEDS: FLUTICASONE PROPIONATE 0.05% NA SPR 16 GM BTL (*BKC) 2 SPRAY NASAL (09:44)
[2021-03-22] MEDS: METOPROLOL TARTRATE 25 MG TABLET BY MOUTH (09:44)
[2021-03-22] MEDS: CLOPIDOGREL BISULFATE 75 MG TABLET PO (09:44)
--- NOTE | 2021-03-22 10:42 | PCNFU ---
Nutrition Follow-Up Complete: Inadequate oral intake related to weakness as evidenced by BMI of 14.5. Goal: Patient to meet estimated nutritional needs. Patient progressing towards goal. We will continue current goal. Pt current nutrition is Pureed, Level 4 with Ensure Enlive TID. Last recorded weight is 36 kg, no new weight to report. Bowel Motility:+BM reported 2/4 Labs Reviewed:Cr 0.5,Na 127 Meds Noted:Protonix, Vit D Plavix, Lopressor, Carafate, Synthroid. Skin: WNL Additional Notes: Patient had MBS 2/2-recommend pureed diet due to dentition. Oral Intake 0-50% of meals. Dietary supplements of Ensure Enlive ordered TID for additional 350 kcals and 20 gms protein. PO intake encouraged. Agree with diet orders. Monitor pt. labs, medications, weight and oral intake every 5 days.
[2021-03-22] MEDS: cefTRIAXone 2 GM in SODIUM CHLORIDE 0.9% IV 100 ML 150 ML IVPB (11:29)
[2021-03-22 11:56] LABS: Glucose Point of Care 125 mg/dl (65-105)
--- NOTE | 2021-03-22 15:07 | PM.IMPN ---
Progress Note: A&P Assessment and Plan (1) UTI (urinary tract infection): Code(s): N39.0 - Urinary tract infection, site not specified Status: Acute Assessment and Plan: Patient was started on Rocephin. Blood is pending, urine culture is positive for ecoli Ecoli UTI 03/21/2021 Interval history: patient appear chronically ill and undernourish, weak and tired, patient is refusing PT OT for last 3 days, patient was seen by GI for persistent nausea suspect from continued use of Carafate patient has been on hold, her urine culture is growing E coli and coagulase-negative Staph patient being treated with ceftriaxone will continue and monitor. 03/22/2021 Interval history: patient appear chronically ill and undernourish, weak and tired, patient is refusing PT OT for last 3 days, patient was seen by GI for persistent nausea suspect from continued use of Carafate patient has been on hold, her urine culture is growing E coli sensitive to ceftriaxone and coagulase-negative Staph patient being treated with ceftriaxone will continue and monitor. patient is a very picky eater. (2) LUCA (acute kidney injury): Code(s): N17.9 - Acute kidney failure, unspecified Status: Acute Assessment and Plan: Continue with IV fluids. Pt is not eating much. (3) Hypertension, essential: Code(s): I10 - Essential (primary) hypertension Status: Chronic Assessment and Plan: Hold lisinopril and continue with metoprolol. (4) Hyponatremia: Code(s): E87.1 - Hypo-osmolality and hyponatremia Status: Acute Assessment and Plan: Could be related to her dehydration. Sodium is 130. continue to monitor BMP (5) Hypothyroidism, unspecified: Qualifiers: Hypothyroidism type: acquired Qualified Code(s): E03.9 - Hypothyroidism, unspecified Code(s): E03.9 - Hypothyroidism, unspecified Status: Chronic Assessment and Plan: Continue with levothyroxine. (6) Hyperlipidemia, unspecified: Qualifiers: Hyperlipidemia type: unspecified Qualified Code(s): E78.5 - Hyperlipidemia, unspecified Code(s): E78.5 - Hyperlipidemia, unspecified Status: Acute Assessment and Plan: Continue with simvastatin check liver enzymes. (7) Dysphagia: Code(s): R13.10 - Dysphagia, unspecified Status: Acute Assessment and Plan: Consult GI pt has history of presbyesophagus and swallow issues Order CT scan of abdomen to check for pathology Order swallow assessment today (8) Acute hypokalemia: Code(s): E87.6 - Hypokalemia Status: Acute Assessment and Plan: Pt has been off her food potassium is low replace pt looks weak. monitor BMP and potassium levels Subjective Date/time seen: 03/22/21 15:07 Interval history: INTERVAL HISTORY : 81-year-old female patient who was brought in from home with complaints of marked weakness for last 4 days. When I saw the patient the daughter was not at the bedside. However the ER noted that the daughter stated that the patient is unable to walk or eat or drink for the last 3 days. 03/19/2021 I spoke to daughter on the phone. Pt follows with Dr Lawton- GI team- pt not been to the office for one year due to transport and covid scare. Pt has been doing zoom calls with PCP. Pt here with nausea, loss of appetite and weight loss. I will consult GI team and order CT abdominal scan. 03/20/2021: pt seen by GI follow recommendation ? if pt wants EGD or not pt is going for her CT scan today continue to monitor potassium level and swallow evaluation today. looks like swallowing is a chronic problem 03/21/2021 Interval history: patient appear chronically ill and undernourish, weak and tired, patient is refusing PT OT for last 3 days, patient was seen by GI for persistent nausea suspect from continued use of Carafate patient has been on hold, her urine culture is growing E coli and coagulase-negative Staph miquel
[2021-03-22 16:11] LABS: Glucose Point of Care 123 mg/dl (65-105)
[2021-03-22] MEDS: PANTOPRAZOLE 40 MG TABLET PO (20:19)
[2021-03-22] MEDS: SIMVASTATIN 20 MG TABLET BY MOUTH (20:19)
[2021-03-22 20:20] LABS: Glucose Point of Care 128 mg/dl (65-105)
[2021-03-23] VITALS (7 sets, daily range): BP systolic 114–158; BP diastolic 48–81; PULSE 72–97; RESP 16–18; TEMP 36.3–36.8; O2SAT 98–100
[2021-03-23] MEDS: ONDANSETRON INJ 4 MG/2 ML VIAL IV PUSH (00:12)
[2021-03-23] MEDS: metroNIDAZOLE 500 MG/ISO 100ML 500 MG/100 ML BAG 100 MG IVPB ×3 (05:06→20:11)
[2021-03-23] MEDS: SUCRALFATE SUSP 100 MG/ML 10 ML UDC 1000 MG BY MOUTH (05:35)
[2021-03-23] MEDS: LEVOTHYROXINE SODIUM 25 MCG TABLET BY MOUTH (05:35)
[2021-03-23 06:00] LABS: Anion Gap 4 mmol/L (8-16); Blood Urea Nitrogen 8 mg/dL (7-17); Calcium 8.1 mg/dL (8.4-10.2); Carbon Dioxide 26 mmol/L (22-30); Chloride 98 mmol/L (98-107); Estimated CRCL calculation 36 ml/min; Estimated Glomerular Filt Rate > 60; Glucose 90 mg/dL (65-110); Potassium 3.7 mmol/L (3.4-5.0); Sodium 128 mmol/L (137-145)
[2021-03-23] MEDS: CLOPIDOGREL BISULFATE 75 MG TABLET PO (08:01)
[2021-03-23] MEDS: CHOLECALCIFEROL 1,000 UNITS TABLET 1000 UNITS PO (08:01)
[2021-03-23] MEDS: NITROGLYCERIN 0.4 MG/HR PATCH 1 PATCH TOPICAL (08:01)
[2021-03-23] MEDS: METOPROLOL TARTRATE 25 MG TABLET BY MOUTH (08:01)
[2021-03-23] MEDS: POTASSIUM CHLORIDE 20 MEQ PACKET (FOR LIQUID) PO (08:02)
[2021-03-23] MEDS: FLUTICASONE PROPIONATE 0.05% NA SPR 16 GM BTL (*BKC) 2 SPRAY NASAL (08:02)
[2021-03-23 08:10] LABS: Glucose Point of Care 94 mg/dl (65-105)
[2021-03-23] MEDS: SODIUM CHLORIDE 500 MG TABLET PO ×2 (10:30→16:14)
[2021-03-23] MEDS: MAGNESIUM SULF 2 GM/WATER 50ML 2 GM/50 ML BAG IVPB (10:30)
[2021-03-23] MEDS: cefTRIAXone 2 GM in SODIUM CHLORIDE 0.9% IV 100 ML 150 ML IVPB (11:10)
--- NOTE | 2021-03-23 11:26 | PM.IMPN ---
Progress Note: A&P Assessment and Plan (1) UTI (urinary tract infection): Code(s): N39.0 - Urinary tract infection, site not specified Status: Acute Assessment and Plan: Patient was started on Rocephin. Blood is pending, urine culture is positive for ecoli Ecoli UTI 03/21/2021 Interval history: patient appear chronically ill and undernourish, weak and tired, patient is refusing PT OT for last 3 days, patient was seen by GI for persistent nausea suspect from continued use of Carafate patient has been on hold, her urine culture is growing E coli and coagulase-negative Staph patient being treated with ceftriaxone will continue and monitor. 03/22/2021 Interval history: patient appear chronically ill and undernourish, weak and tired, patient is refusing PT OT for last 3 days, patient was seen by GI for persistent nausea suspect from continued use of Carafate patient has been on hold, her urine culture is growing E coli sensitive to ceftriaxone and coagulase-negative Staph patient being treated with ceftriaxone will continue and monitor. patient is a very picky eater. 03/23/2021 Interval history: patient appear chronically ill and undernourish, weak and tired, patient is refusing PT OT for last 3 days, however today patient sitting in the and working with a occupational therapist, patient magnesium sodium are low and being repeated with IV magnesium and salt tablet, patient was seen by GI for persistent nausea suspect from continued use of Carafate patient has been on hold, her urine culture is growing E coli sensitive to ceftriaxone and coagulase-negative Staph patient being treated with ceftriaxone will continue and monitor. patient is a very picky eater. (2) LUCA (acute kidney injury): Code(s): N17.9 - Acute kidney failure, unspecified Status: Acute Assessment and Plan: Continue with IV fluids. Pt is not eating much. (3) Hypertension, essential: Code(s): I10 - Essential (primary) hypertension Status: Chronic Assessment and Plan: Hold lisinopril and continue with metoprolol. (4) Hyponatremia: Code(s): E87.1 - Hypo-osmolality and hyponatremia Status: Acute Assessment and Plan: Could be related to her dehydration. Sodium is 130. continue to monitor BMP (5) Hypothyroidism, unspecified: Qualifiers: Hypothyroidism type: acquired Qualified Code(s): E03.9 - Hypothyroidism, unspecified Code(s): E03.9 - Hypothyroidism, unspecified Status: Chronic Assessment and Plan: Continue with levothyroxine. (6) Hyperlipidemia, unspecified: Qualifiers: Hyperlipidemia type: unspecified Qualified Code(s): E78.5 - Hyperlipidemia, unspecified Code(s): E78.5 - Hyperlipidemia, unspecified Status: Acute Assessment and Plan: Continue with simvastatin check liver enzymes. (7) Dysphagia: Code(s): R13.10 - Dysphagia, unspecified Status: Acute Assessment and Plan: Consult GI pt has history of presbyesophagus and swallow issues Order CT scan of abdomen to check for pathology Order swallow assessment today (8) Acute hypokalemia: Code(s): E87.6 - Hypokalemia Status: Acute Assessment and Plan: Pt has been off her food potassium is low replace pt looks weak. monitor BMP and potassium levels Subjective Date/time seen: 03/23/21 11:26 Interval history: INTERVAL HISTORY : 81-year-old female patient who was brought in from home with complaints of marked weakness for last 4 days. When I saw the patient the daughter was not at the bedside. However the ER noted that the daughter stated that the patient is unable to walk or eat or drink for the last 3 days. 03/19/2021 I spoke to daughter on the phone. Pt follows with Dr Lawton- GI team- pt not been to the office for one year due to transport and covid scare. Pt has been doing zoom calls with PCP. Pt here with nausea, loss of jacqui
[2021-03-23 11:50] LABS: Glucose Point of Care 109 mg/dl (65-105)
[2021-03-23 16:44] LABS: Glucose Point of Care 116 mg/dl (65-105)
[2021-03-23] MEDS: SIMVASTATIN 20 MG TABLET BY MOUTH (20:12)
[2021-03-23] MEDS: PANTOPRAZOLE 40 MG TABLET PO (20:12)
[2021-03-23 21:14] LABS: Glucose Point of Care 137 mg/dl (65-105)
[2021-03-24] VITALS (7 sets, daily range): BP systolic 116–155; BP diastolic 47–67; PULSE 68–100; RESP 16–20; TEMP 36.3–36.7; O2SAT 95–100
[2021-03-24] MEDS: LEVOTHYROXINE SODIUM 25 MCG TABLET BY MOUTH (05:52)
[2021-03-24] MEDS: metroNIDAZOLE 500 MG/ISO 100ML 500 MG/100 ML BAG 100 MG IVPB ×3 (05:52→21:49)
[2021-03-24 06:05] LABS: Anion Gap 3 mmol/L (8-16); Blood Urea Nitrogen 8 mg/dL (7-17); Calcium 8.4 mg/dL (8.4-10.2); Carbon Dioxide 26 mmol/L (22-30); Chloride 99 mmol/L (98-107); Estimated CRCL calculation 51 ml/min; Estimated Glomerular Filt Rate > 60; Glucose 88 mg/dL (65-110); Sodium 128 mmol/L (137-145)
[2021-03-24 08:07] LABS: Glucose Point of Care 81 mg/dl (65-105)
[2021-03-24] MEDS: CLOPIDOGREL BISULFATE 75 MG TABLET PO (09:11)
[2021-03-24] MEDS: MAGNESIUM OXIDE 400 MG TABLET PO (09:11)
[2021-03-24] MEDS: SODIUM CHLORIDE 500 MG TABLET PO ×2 (09:11→16:36)
[2021-03-24] MEDS: METOPROLOL TARTRATE 25 MG TABLET BY MOUTH (09:11)
[2021-03-24] MEDS: FLUTICASONE PROPIONATE 0.05% NA SPR 16 GM BTL (*BKC) 2 SPRAY NASAL (09:11)
[2021-03-24] MEDS: POTASSIUM CHLORIDE 20 MEQ PACKET (FOR LIQUID) PO (09:11)
[2021-03-24] MEDS: NITROGLYCERIN 0.4 MG/HR PATCH 1 PATCH TOPICAL (09:12)
[2021-03-24] MEDS: ONDANSETRON INJ 4 MG/2 ML VIAL IV PUSH (09:25)
[2021-03-24 10:00] LABS: Magnesium 1.9 mg/dL (1.6-2.3)
--- NOTE | 2021-03-24 10:22 | PM.IMPN ---
Progress Note: A&P Assessment and Plan (1) UTI (urinary tract infection): Code(s): N39.0 - Urinary tract infection, site not specified Status: Acute Assessment and Plan: Patient was started on Rocephin. Blood is pending, urine culture is positive for ecoli Ecoli UTI 03/21/2021 Interval history: patient appear chronically ill and undernourish, weak and tired, patient is refusing PT OT for last 3 days, patient was seen by GI for persistent nausea suspect from continued use of Carafate patient has been on hold, her urine culture is growing E coli and coagulase-negative Staph patient being treated with ceftriaxone will continue and monitor. 03/22/2021 Interval history: patient appear chronically ill and undernourish, weak and tired, patient is refusing PT OT for last 3 days, patient was seen by GI for persistent nausea suspect from continued use of Carafate patient has been on hold, her urine culture is growing E coli sensitive to ceftriaxone and coagulase-negative Staph patient being treated with ceftriaxone will continue and monitor. patient is a very picky eater. 03/23/2021 Interval history: patient appear chronically ill and undernourish, weak and tired, patient is refusing PT OT for last 3 days, however today patient sitting in the and working with a occupational therapist, patient magnesium sodium are low and being repeated with IV magnesium and salt tablet, patient was seen by GI for persistent nausea suspect from continued use of Carafate patient has been on hold, her urine culture is growing E coli sensitive to ceftriaxone and coagulase-negative Staph patient being treated with ceftriaxone will continue and monitor. patient is a very picky eater. 03/24/2021 Interval history: patient appear chronically ill and undernourish, weak and tired, patient is refusing PT OT for last 3 days, however now patient is working with a occupational therapist, patient magnesium and sodium are low and being repeated with IV magnesium and salt tablet, patient was seen by GI for persistent nausea suspect from continued use of Carafate, it has been on hold, her urine culture is growing E coli sensitive to ceftriaxone and coagulase-negative Staph patient being treated with ceftriaxone will continue and monitor. patient is a very picky eater. (2) LUCA (acute kidney injury): Code(s): N17.9 - Acute kidney failure, unspecified Status: Acute Assessment and Plan: Continue with IV fluids. Pt is not eating much. (3) Hypertension, essential: Code(s): I10 - Essential (primary) hypertension Status: Chronic Assessment and Plan: Hold lisinopril and continue with metoprolol. (4) Hyponatremia: Code(s): E87.1 - Hypo-osmolality and hyponatremia Status: Acute Assessment and Plan: Could be related to her dehydration. Sodium is 130. continue to monitor BMP (5) Hypothyroidism, unspecified: Qualifiers: Hypothyroidism type: acquired Qualified Code(s): E03.9 - Hypothyroidism, unspecified Code(s): E03.9 - Hypothyroidism, unspecified Status: Chronic Assessment and Plan: Continue with levothyroxine. (6) Hyperlipidemia, unspecified: Qualifiers: Hyperlipidemia type: unspecified Qualified Code(s): E78.5 - Hyperlipidemia, unspecified Code(s): E78.5 - Hyperlipidemia, unspecified Status: Acute Assessment and Plan: Continue with simvastatin check liver enzymes. (7) Dysphagia: Code(s): R13.10 - Dysphagia, unspecified Status: Acute Assessment and Plan: Consult GI pt has history of presbyesophagus and swallow issues Order CT scan of abdomen to check for pathology Order swallow assessment today (8) Acute hypokalemia: Code(s): E87.6 - Hypokalemia Status: Acute Assessment and Plan: Pt has been off her food potassium is low replace pt looks weak. monitor BMP and potassium levels Subjective
[2021-03-24] MEDS: cefTRIAXone 2 GM in SODIUM CHLORIDE 0.9% IV 100 ML IVPB (12:00)
[2021-03-24] MEDS: PANTOPRAZOLE 40 MG TABLET PO (21:49)
[2021-03-24] MEDS: SIMVASTATIN 20 MG TABLET BY MOUTH (21:49)
[2021-03-25] VITALS (7 sets, daily range): BP systolic 113–180; BP diastolic 55–95; PULSE 70–86; RESP 20–21; TEMP 36.1–36.9; O2SAT 98–100
[2021-03-25 06:04] LABS: Anion Gap 4 mmol/L (8-16); Blood Urea Nitrogen 9 mg/dL (7-17); Calcium 8.1 mg/dL (8.4-10.2); Carbon Dioxide 25 mmol/L (22-30); Chloride 99 mmol/L (98-107); Estimated CRCL calculation 42 ml/min; Estimated Glomerular Filt Rate > 60; Glucose 82 mg/dL (65-110); Magnesium 1.9 mg/dL (1.6-2.3); Sodium 128 mmol/L (137-145)
[2021-03-25] MEDS: metroNIDAZOLE 500 MG/ISO 100ML 500 MG/100 ML BAG 100 MG IVPB ×2 (06:27→14:00)
[2021-03-25] MEDS: LEVOTHYROXINE SODIUM 25 MCG TABLET BY MOUTH (06:28)
[2021-03-25 07:55] LABS: Glucose Point of Care 81 mg/dl (65-105)
[2021-03-25] MEDS: FLUTICASONE PROPIONATE 0.05% NA SPR 16 GM BTL (*BKC) 2 SPRAY NASAL (08:03)
[2021-03-25] MEDS: MAGNESIUM OXIDE 400 MG TABLET PO (08:04)
[2021-03-25] MEDS: CHOLECALCIFEROL 1,000 UNITS TABLET 1000 UNITS PO (08:04)
[2021-03-25] MEDS: POTASSIUM CHLORIDE 20 MEQ PACKET (FOR LIQUID) PO (08:04)
[2021-03-25] MEDS: CLOPIDOGREL BISULFATE 75 MG TABLET PO (08:04)
[2021-03-25] MEDS: NITROGLYCERIN 0.4 MG/HR PATCH 1 PATCH TOPICAL (08:04)
[2021-03-25] MEDS: METOPROLOL TARTRATE 25 MG TABLET BY MOUTH (08:04)
[2021-03-25] MEDS: SODIUM CHLORIDE 500 MG TABLET PO ×2 (08:04→16:16)
--- NOTE | 2021-03-25 11:50 | PM.IMPN ---
Progress Note: A&P Assessment and Plan (1) UTI (urinary tract infection): Code(s): N39.0 - Urinary tract infection, site not specified Status: Acute Assessment and Plan: Patient was started on Rocephin. Blood is pending, urine culture is positive for ecoli Ecoli UTI 03/21/2021 Interval history: patient appear chronically ill and undernourish, weak and tired, patient is refusing PT OT for last 3 days, patient was seen by GI for persistent nausea suspect from continued use of Carafate patient has been on hold, her urine culture is growing E coli and coagulase-negative Staph patient being treated with ceftriaxone will continue and monitor. 03/22/2021 Interval history: patient appear chronically ill and undernourish, weak and tired, patient is refusing PT OT for last 3 days, patient was seen by GI for persistent nausea suspect from continued use of Carafate patient has been on hold, her urine culture is growing E coli sensitive to ceftriaxone and coagulase-negative Staph patient being treated with ceftriaxone will continue and monitor. patient is a very picky eater. 03/23/2021 Interval history: patient appear chronically ill and undernourish, weak and tired, patient is refusing PT OT for last 3 days, however today patient sitting in the and working with a occupational therapist, patient magnesium sodium are low and being repeated with IV magnesium and salt tablet, patient was seen by GI for persistent nausea suspect from continued use of Carafate patient has been on hold, her urine culture is growing E coli sensitive to ceftriaxone and coagulase-negative Staph patient being treated with ceftriaxone will continue and monitor. patient is a very picky eater. 03/24/2021 Interval history: patient appear chronically ill and undernourish, weak and tired, patient is refusing PT OT for last 3 days, however now patient is working with a occupational therapist, patient magnesium and sodium are low and being repeated with IV magnesium and salt tablet, patient was seen by GI for persistent nausea suspect from continued use of Carafate, it has been on hold, her urine culture is growing E coli sensitive to ceftriaxone and coagulase-negative Staph patient being treated with ceftriaxone will continue and monitor. patient is a very picky eater. 03/25/2021 Interval history: patient appear chronically ill and undernourish, weak and tired, patient was refusing PT OT for initial 3 days, however now patient is working with OT and PT, , patient magnesium and sodium were low and being repeated with IV magnesium and salt tablet, patient was seen by GI for persistent nausea suspect from continued use of Carafate, it has been on hold, her urine culture is growing E coli sensitive to ceftriaxone and coagulase-negative Staph patient being treated with ceftriaxone will continue and monitor. patient is a very picky eater. Patient symptoms are improving however she does need assistance with her ADL will continue PT/OT, patient will benefit going to SNF for rehab before going home. (2) LUCA (acute kidney injury): Code(s): N17.9 - Acute kidney failure, unspecified Status: Acute Assessment and Plan: Continue with IV fluids. Pt is not eating much. (3) Hypertension, essential: Code(s): I10 - Essential (primary) hypertension Status: Chronic Assessment and Plan: Hold lisinopril and continue with metoprolol. (4) Hyponatremia: Code(s): E87.1 - Hypo-osmolality and hyponatremia Status: Acute Assessment and Plan: Could be related to her dehydration. Sodium is 130. continue to monitor BMP (5) Hypothyroidism, unspecified: Qualifiers: Hypothyroidism type: acquired Qualified Code(s): E03.9 - Hypothyroidism, unspecified Code(s): E03.9 - Hypothyroidism, unspecified Status: Chronic Assessment and Plan: Continue with levothyroxine. (6) Hyperlipidemia, unspecified:
[2021-03-25] MEDS: cefTRIAXone 2 GM in SODIUM CHLORIDE 0.9% IV 100 ML IVPB (12:38)
--- NOTE | 2021-03-25 12:49 | PM.DS ---
DS: Admitting Diagnosis Discharge Date 03/25/2021 Admitting Diagnosis weakness DS: Discharge Diagnosis Discharge Diagnosis (1) UTI (urinary tract infection): Code(s): N39.0 - Urinary tract infection, site not specified Status: Acute Assessment and Plan: Patient was started on Rocephin. Blood is pending, urine culture is positive for ecoli Ecoli UTI 03/21/2021 Interval history: patient appear chronically ill and undernourish, weak and tired, patient is refusing PT OT for last 3 days, patient was seen by GI for persistent nausea suspect from continued use of Carafate patient has been on hold, her urine culture is growing E coli and coagulase-negative Staph patient being treated with ceftriaxone will continue and monitor. 03/22/2021 Interval history: patient appear chronically ill and undernourish, weak and tired, patient is refusing PT OT for last 3 days, patient was seen by GI for persistent nausea suspect from continued use of Carafate patient has been on hold, her urine culture is growing E coli sensitive to ceftriaxone and coagulase-negative Staph patient being treated with ceftriaxone will continue and monitor. patient is a very picky eater. 03/23/2021 Interval history: patient appear chronically ill and undernourish, weak and tired, patient is refusing PT OT for last 3 days, however today patient sitting in the and working with a occupational therapist, patient magnesium sodium are low and being repeated with IV magnesium and salt tablet, patient was seen by GI for persistent nausea suspect from continued use of Carafate patient has been on hold, her urine culture is growing E coli sensitive to ceftriaxone and coagulase-negative Staph patient being treated with ceftriaxone will continue and monitor. patient is a very picky eater. 03/24/2021 Interval history: patient appear chronically ill and undernourish, weak and tired, patient is refusing PT OT for last 3 days, however now patient is working with a occupational therapist, patient magnesium and sodium are low and being repeated with IV magnesium and salt tablet, patient was seen by GI for persistent nausea suspect from continued use of Carafate, it has been on hold, her urine culture is growing E coli sensitive to ceftriaxone and coagulase-negative Staph patient being treated with ceftriaxone will continue and monitor. patient is a very picky eater. 03/25/2021 Interval history: patient appear chronically ill and undernourish, weak and tired, patient was refusing PT OT for initial 3 days, however now patient is working with OT and PT, , patient magnesium and sodium were low and being repeated with IV magnesium and salt tablet, patient was seen by GI for persistent nausea suspect from continued use of Carafate, it has been on hold, her urine culture is growing E coli sensitive to ceftriaxone and coagulase-negative Staph patient being treated with ceftriaxone will continue and monitor. patient is a very picky eater. Patient symptoms are improving however she does need assistance with her ADL will continue PT/OT, patient will benefit going to SNF for rehab before going home. patient clinical symptoms have improved is tolerating her diet, her sodium is increasing, will discharge patient today to home. (2) LUCA (acute kidney injury): Code(s): N17.9 - Acute kidney failure, unspecified Status: Acute Assessment and Plan: Continue with IV fluids. Pt is not eating much. (3) Hypertension, essential: Code(s): I10 - Essential (primary) hypertension Status: Chronic Assessment and Plan: Hold lisinopril and continue with metoprolol. (4) Hyponatremia: Code(s): E87.1 - Hypo-osmolality and hyponatremia Status: Acute Assessment and Plan: Could be related to her dehydration. Sodium is 130. continue to monitor BMP (5) Hypothyroidism, unspecified: Qualifiers: Hypothyroidism type: acquired Quali
[2021-03-25] MEDS: PANTOPRAZOLE 40 MG TABLET PO (21:45)
[2021-03-25] MEDS: SIMVASTATIN 20 MG TABLET BY MOUTH (21:45)
[2021-03-26 02:00] VITALS: BP 170/60; PULSE 82; RESP 20; TEMP 37.2; O2SAT 98
[2021-03-26 06:00] VITALS: BP 152/73; PULSE 83; RESP 20; TEMP 37.1; O2SAT 98
[2021-03-26 06:01] LABS: Anion Gap 0 mmol/L (8-16); Blood Urea Nitrogen 9 mg/dL (7-17); Calcium 8.5 mg/dL (8.4-10.2); Carbon Dioxide 30 mmol/L (22-30); Chloride 98 mmol/L (98-107); Estimated CRCL calculation 42 ml/min; Estimated Glomerular Filt Rate > 60; Glucose 85 mg/dL (65-110); Magnesium 1.8 mg/dL (1.6-2.3); Potassium 4.3 mmol/L (3.4-5.0); Sodium 128 mmol/L (137-145)
[2021-03-26] MEDS: LEVOTHYROXINE SODIUM 25 MCG TABLET BY MOUTH (06:26)
[2021-03-26 08:03] LABS: Glucose Point of Care 93 mg/dl (65-105)
[2021-03-26 08:48] VITALS: PULSE 93
[2021-03-26] MEDS: METOPROLOL TARTRATE 25 MG TABLET BY MOUTH (08:48)
[2021-03-26] MEDS: FLUTICASONE PROPIONATE 0.05% NA SPR 16 GM BTL (*BKC) 2 SPRAY NASAL (08:48)
[2021-03-26] MEDS: CLOPIDOGREL BISULFATE 75 MG TABLET PO (08:49)
[2021-03-26] MEDS: SODIUM CHLORIDE 500 MG TABLET PO (08:49)
[2021-03-26] MEDS: POTASSIUM CHLORIDE 20 MEQ PACKET (FOR LIQUID) PO (08:49)
[2021-03-26] MEDS: MAGNESIUM OXIDE 400 MG TABLET PO (08:49)
[2021-03-26] MEDS: NITROGLYCERIN 0.4 MG/HR PATCH 1 PATCH TOPICAL (08:49)
[2021-03-26 10:00] VITALS: BP 129/56; PULSE 79; RESP 20; TEMP 36.7; O2SAT 96
== END 2021-03-26 12:25 | disposition home health service (06) | DRG 690 ==
LOC: ANHED 10:40 → ANH2MED 18:47
PROVIDERS: Family Medicine; Nurse Practitioner; Admitting Provider Hospitalist; Emergency Provider Family Medicine; PCP Internal Medicine; Visit Provider Family Medicine
DX: N39.0 Urinary tract infection, site not specified (principal); E87.1 Hypo-osmolality and hyponatremia; N17.9 Acute kidney failure, unspecified; E86.0 Dehydration; B96.20 Unspecified Escherichia coli [E. coli] as the cause of diseases classified elsewhere; Z20.822 Contact with and (suspected) exposure to COVID-19; R63.39 Other feeding difficulties; R13.10 Dysphagia, unspecified; R11.0 Nausea; E87.6 Hypokalemia; R53.1 Weakness; I10 Essential (primary) hypertension; E78.2 Mixed hyperlipidemia; E03.9 Hypothyroidism, unspecified; H91.90 Unspecified hearing loss, unspecified ear; Z79.899 Other long term (current) drug therapy; Z28.21 Immunization not carried out because of patient refusal; Z95.2 Presence of prosthetic heart valve; Z98.49 Cataract extraction status, unspecified eye; Z96.1 Presence of intraocular lens
CPT/HCPCS: 36415; 51701; 71045; 74177; 80048; 80053; 81001; 82728; 82948; 83605; 83615; 83690; 83735; 84132; 84443; 85025; 87040; 87077; 87086; 87088; 87186; 92611; 96361; 96365; 96366; 96368; 96375; 97110; 97161; 97165; 97530; 97535; 99285; A9270; C9803; J0696; J2405; J3475; J3480; J7030; J7040; J7120; Q9967; U0003; U0005

== ENCOUNTER 2021-04-09 11:44 | Outpatient (NON) | payer OTHER, SELFPAY ==
[2021-04-09 13:40] LABS: Anion Gap 5 mmol/L (8-16); Blood Urea Nitrogen 18 mg/dL (7-17); Calcium 9.4 mg/dL (8.4-10.2); Carbon Dioxide 36 mmol/L (22-30); Chloride 91 mmol/L (98-107); Estimated Glomerular Filt Rate > 60; Glucose 97 mg/dL (65-110); Potassium 3.5 mmol/L (3.4-5.0); Sodium 132 mmol/L (137-145)
== END 2021-04-09 11:45 | disposition home or self-care (01) ==
PROVIDERS: PCP Internal Medicine; Visit Provider Internal Medicine
DX: N39.0 Urinary tract infection, site not specified (principal); R13.10 Dysphagia, unspecified; E03.9 Hypothyroidism, unspecified; E87.1 Hypo-osmolality and hyponatremia; I10 Essential (primary) hypertension
CPT/HCPCS: 80048

== ENCOUNTER 2021-04-29 12:45 | Outpatient (NON) | payer OTHER, SELFPAY ==
[2021-04-29 13:49] LABS: Anion Gap 7 mmol/L (8-16); Blood Urea Nitrogen 16 mg/dL (7-17); Calcium 8.9 mg/dL (8.4-10.2); Carbon Dioxide 29 mmol/L (22-30); Chloride 98 mmol/L (98-107); Estimated Glomerular Filt Rate > 60; Glucose 103 mg/dL (65-110); Potassium 3.5 mmol/L (3.4-5.0); Sodium 134 mmol/L (137-145)
== END 2021-04-29 12:46 | disposition home or self-care (01) ==
LOC: ANHLAB 12:47
PROVIDERS: PCP Internal Medicine; Visit Provider Internal Medicine
DX: N39.0 Urinary tract infection, site not specified (principal); R13.10 Dysphagia, unspecified; I10 Essential (primary) hypertension; E03.9 Hypothyroidism, unspecified; E87.1 Hypo-osmolality and hyponatremia
CPT/HCPCS: 36415; 80048

== ENCOUNTER 2021-07-12 13:40 | Inpatient (IN) | payer OTHER, SELFPAY ==
[2021-07-12] VITALS (33 sets, daily range): BP systolic 155–211; BP diastolic 54–139; PULSE 62–105; RESP 10–32; TEMP 36.8–37.2; O2SAT 91–100; BMI 15.7; BMI 15.2
--- NOTE | ~2021-07-12 | XR_ITS ---
XR chest 1V portable DATE: 07/13/2021 03:47 INDICATION: Altered mental state TECHNIQUE: Portable AP chest on 07/13/2021 at 0339 hours COMPARISON: 07/12/2021 AP chest at 1432 hours FINDINGS: Status post sternotomy. Heart size appears within normal range. Aortic calcification and mi ld tortuosity. No hilar or mediastinal enlargement. Mild elevation of left diaphragm and minimal atelectasis at the left lung base. The lungs otherwise a ppear clear of infiltrate or consolidation. Mild bilateral apical capping. No pleural effusion or pulmonary vascular congestion or pneumothorax. Diffuse osteopenia. Prominent rotatory scoliosis of the lumbar spine. IMPRESSION: Mild elevation left diaphragm, minimal atelectasis at left lung base Reviewed, dictated and finalized at location A. IMPRESSION: Mild elevation left diaphragm, minimal atelectasis at left lung bas e
--- NOTE | ~2021-07-12 | CT_ITS ---
EXAMINATION: CT brain wo con DATE: 07/13/2021 02:42 INDICATION: Altered mental state TECHNIQUE: Computed tomography (CT) of the head was performed without intravenous contrast. The mA wa s adjusted according to patient size. Iterative reconstruction technique was employed. Exam dose: 90 8.00 mGy-cm total exam DLP. COMPARISON: 07/12/2021 CT brain FINDINGS: Examination is mildly limited by motion artifact. There is central and cortical cerebral atrophy. Bilateral carotid siphon internal carotid artery and vertebral artery calcifications. There is nonspe cific diminished attenuation of the cerebral white matter, likely due to chronic small vessel ischemi c changes. No intracranial mass lesion or hemorrhage, midline shift or mass effect or subdural or epidural hemat leon is detected. No fracture or bone destruction of the cranial vault is detected. The paranasal sinuses and mastoid air cells are normally developed and aerated. IMPRESSION: No acute intracranial finding or significant change since 07/12/2021 Reviewed, dictated and finalized at Location A. Reviewed, dictated and finalized at location A. IMPRESSION: No acute intracranial finding or significant change since 2
--- NOTE | ~2021-07-12 | XR_ITS ---
XR abdomen/kub 1V 07/12/2021 19:54 Indication: Nausea and vomiting Procedure: KUB Comparison: CT dated 03/20/2021 Findings: There is moderate gas in the left colon near the splenic flexure with mucosal thickening. T here is moderate retained fecal material in the rectum. There is a gallstone in the right mid abdomen . Severe dextroscoliosis. Impression: 1: Nonspecific bowel gas pattern with mucosal thickening of the left colon at the splenic flexure, stark spicious for inflammatory/infectious process. 2: Cholelithiasis. Reviewed, dictated and finalized at location A. Impression: 1: Nonspecific bowel gas pattern with mucosal thickening of the left colon at t he splenic flexure, suspicious for inflammatory/infectious process. 2: Cholelithiasis.
--- NOTE | ~2021-07-12 | CT_ITS ---
EXAMINATION: CT brain wo con DATE: 07/12/2021 14:31 INDICATION: Hypertension. Blurred vision. TECHNIQUE: Computed tomography (CT) of the head was performed without intravenous contrast. The dose- length product was 605.33 mGy-cm. Automated exposure control and iterative reconstruction technique w ere employed. COMPARISON: None FINDINGS: Mild generalized atrophy. No acute intracranial hemorrhage, infarction, mass or mass effect . Paranasal sinuses and mastoids are pneumatized. No depressed skull fractures. There is intracranial atherosclerosis. There are scattered mild periventricular and subcortical white matter changes, most likely related to small vessel ischemic disease (microangiopathy). IMPRESSION: 1. No acute intracranial abnormality. 2: Chronic age-related findings. Reviewed, dictated and finalized at location A.
--- NOTE | ~2021-07-12 | XR_ITS ---
XR chest 1V DATE: 07/12/2021 14:39 INDICATION: Chest pain, weakness TECHNIQUE: AP chest COMPARISON: 03/18/2021 portable AP chest at 0858 hours FINDINGS: Status post sternotomy. Normal heart size. Aortic calcification and tortuosity. No pulmonary infiltrate or consolidation, pleural effusion or pulmonary vascular congestion or pneumo thorax is detected. Diffuse osteopenia. There is rotatory dextroscoliosis of the lumbar spine. Bilateral rotator cuff atrophy of the shoulders. IMPRESSION: No active cardiac pulmonary disease Aortic atherosclerosis No significant change since 03/18/2021 Reviewed, dictated and finalized at location A.
--- NOTE | ~2021-07-12 | MR_ITS ---
EXAMINATION: MR brain/brain stem wo con DATE: 07/16/2021 14:50 INDICATION: Altered mental status. TECHNIQUE: Magnetic resonance imaging (MRI) of the brain and brainstem was performed without intraven ous contrast. COMPARISON: Head CT 07/13/2021 FINDINGS: There is diffuse brain volume loss. There are scattered areas of low attenuation in the cer ebral white matter, which is within normal limits for the patient's age. There is no intracranial he morrhage, acute infarction, or abnormal intracranial mass lesion. The ventricles are normal in size. There are likely changes of right ocular lens replacement surgery. The paranasal sinuses are clear. T here is a small right mastoid effusion. IMPRESSION: 1. Normal aging brain. Reviewed, dictated and finalized at location A. IMPRESSION: 1. Normal aging brain.
--- NOTE | ~2021-07-12 | XR_ITS ---
EXAMINATION: XR chest 1V portable DATE: 07/18/2021 12:06 INDICATION: Respiratory failure TECHNIQUE: frontal view of the chest was obtained. COMPARISON: Chest radiograph dated 07/13/2021, 07/12/2021 and 08/24/2018 FINDINGS: Mild right apical pleural-parenchymal scarring. [place] projects over the bilateral lower lung zones . No other airspace opacities, pulmonary edema, pleural effusion or pneumothorax. The cardiomediastin al silhouette is normal. Median sternotomy wires and aortic valve repair. Prominent dextrorotoscolios is centered at the thoracolumbar junction. IMPRESSION: 1. Chronic mild right apical pleural-parenchymal scarring. No acute cardiopulmonary disease. Reviewed, dictated and finalized at location B. IMPRESSION: 1. Chronic mild right apical pleural-parenchymal scarring. No acute cardiopulmo nary disease.
--- NOTE | ~2021-07-12 | XR_ITS ---
EXAMINATION: XR fl Dobhoff insert/rad w img DATE: 07/19/2021 17:04 INDICATION: Altered mental status. TECHNIQUE: I placed a nasoenteric tube with fluoroscopic guidance. Fluoroscopy exposure time was 0.4 minutes. The number of images was 1. COMPARISON: CT abdomen and pelvis 03/20/2021 FINDINGS: The nasoenteric tube tip is in the stomach. IMPRESSION: 1. Fluoroscopy guided nasoenteric tube placement with tip in the stomach. Reviewed, dictated and finalized at location A.
--- NOTE | ~2021-07-12 | XR_ITS ---
EXAMINATION: XR lumbar puncture diagnostic DATE: 07/18/2021 11:50 INDICATION: Altered level of consciousness. TECHNIQUE: The skin overlying the L5-S1 level was prepped and draped in usual sterile fashion. Subcu taneous 1% lidocaine was used for local anesthesia. A 20 gauge spinal needle was advanced under fluo roscopic guidance. The needle was removed and the entry site was cleaned and dressed. There were no immediate complications. Fluoroscopy exposure time was 0.0 minutes. The total number of images was 1. FINDINGS: Real-time fluoroscopy demonstrates the needle at the L5-S1 level. The opening pressure was 29 cm water (Normal range is variably defined as 6-20 cm water and up to 25 cm water in obese patient s. Pressure >25 cm water is one of the modified Dandy criteria for idiopathic intracranial hypertensi on). 12 mL of clear, colorless fluid was collected in 4 tubes. IMPRESSION: 1. Successful fluoro-guided lumbar puncture. 2. Elevated opening pressure. Reviewed, dictated and finalized at location A.
--- NOTE | 2021-07-12 14:04 | ECG_ITS ---
Measurements Intervals [place] Rate: 64 P: 64 SC: 155 QRS: 56 QRSD: 100 T: 70 QT: 429 QTc: 443 Interpretive Statements SINUS RHYTHM LEFT VENTRICULAR HYPERTROPHY AND ST-T CHANGE BORDERLINE ST-T WAVE ABNORMALITY- HIGH LATERAL LEADS BASELINE ARTIFACT- I, II, III, AVR, V1, V4-V6 BORDERLINE ECG Electronically Signed On 07-12-2021 17:16:16 CDT by Ziggy Munguia D.O.
--- NOTE | 2021-07-12 14:07 | ED.GENADULT ---
HPI - General Adult General Chief complaint: Recheck/Abnormal Lab/Rx Stated complaint: elevated bp Time Seen by Provider: 07/12/21 13:45 History of Present Illness HPI narrative: Patient is an 81-year-old female complaining of a headache, nausea, elevated blood pressure, chest discomfort and chills times few days . Patient states that they keep changing my medication referring to her blood pressure medication. According to daughter her family physician just recently changed her blood pressure medication. Patient describes her headache as dull, generalized, moderate, nonradiating. Patient's chest is midsternal, mild, nonradiating, currently denies any pain. Patient denies any abdominal pain, vomiting, diarrhea, or fever. Related Data Allergies Allergy/AdvReac Type Severity Reaction Status Date / Time azithromycin Allergy Severe DIFFICULTY Verified 04/25/21 12:24 BREATHING ciprofloxacin Allergy Unknown Difficulty Verified 04/25/21 12:24 Breathing levofloxacin Allergy Unknown Rash Verified 04/25/21 12:24 Penicillins Allergy Unknown Rash Verified 04/25/21 12:24 erythromycin base AdvReac Unknown Nausea And Verified 04/25/21 12:24 Vomiting codeine AdvReac Difficulty Verified 04/25/21 12:24 Breathing Review of Systems Review of Systems: All systems reviewed & are unremarkable except as noted in HPI and below Constitutional: Constitutional: Denies body ache(s), Denies excessive sweating, Denies fatigue, Denies fever(s), Denies lethargy, Denies malaise, Denies weakness and Denies weight loss Eyes: Eyes: Denies blurry vision, Denies change in vision and Denies loss of vision ENT: Denies dizziness, Denies ear discharge, Denies headache(s), Denies lip swelling, Denies epistaxis, Denies nasal congestion, Denies neck pain, Denies throat swelling and Denies tongue swelling Cardiovascular: Cardiovascular: Denies diaphoresis, Denies rapid heart rate, Denies edema, Denies irregular heart rhythm, Denies lightheadedness, Denies palpitations, Denies dyspnea and Denies dyspnea on exertion Respiratory: Respiratory: Denies chest congestion, Denies cough, Denies hemoptysis, Denies dyspnea and Denies dyspnea on exertion Gastrointestinal: Gastrointestinal: Denies abdominal pain, Denies melena, Denies hematochezia, Denies diarrhea, Denies vomiting and Denies hematemesis Musculoskeletal: Musculoskeletal: Denies abnormal gait, Denies deformity, Denies joint swelling, Denies limited range of motion, Denies neck pain and Denies numbness Neurologic: Denies Abnormal speech present, Denies abnormal gait, Denies confusion, Denies dizziness, Denies focal weakness, Denies loss of vision, Denies numbness, Denies Other visual disturbances, Denies Sensory deficit (Neuro) and Denies weakness Psychiatric: Psychiatric: Denies confusion, Denies depression, Denies auditory hallucinations, Denies homicidal ideation and Denies suicidal ideation Endocrine: Endocrine: Denies cold intolerance, Denies excessive sweating, Denies fatigue, Denies heat intolerance and Denies palpitations Hematologic/Lymphatic: Hematologic/Lymphatic: Denies easy bleeding and Denies easy bruising Allergic/Immunologic: Allergic/Immunologic: Denies lip swelling, Denies throat swelling and Denies tongue swelling PMFSH Past Medical History Medical History Dysphagia H/O coronary angiogram Hypertension, essential Hypokalemia Hypothyroidism, unspecified Mixed hyperlipidemia Nausea Surgical History Surgical History H/O aortic valve replacement H/O cataract removal with insertion of prosthetic lens H/O esophagogastroduodenoscopy H/O: hysterectomy Hx of colonoscopy with polypectomy Family History Family History Father Hypertension Patient's father is Acute myocardial infarction Sibling Hyp
[2021-07-12] MEDS: LACTATED RINGERS 1,000 ML 250 ML IV CONT (14:21)
[2021-07-12] MEDS: ONDANSETRON INJ 4 MG/2 ML VIAL IV PUSH ×2 (14:21→18:16)
[2021-07-12 14:22] LABS: Basophils Percent Auto 0.3 % (0.2-1.2); Eosinophils Percent Auto 0.1 % (0-4.4); Hematocrit 36.9 % (37.0-47.0); Hemoglobin 11.5 g/dL (12.0-15.0); Immature Granulocyte Absolute 0.02 K/mm3 (0.00-0.031); Immature Granulocyte Percent A 0.3 % (0-0.5); Lymphocytes Absolute Auto 0.61 K/mm3 (0.9-3.2); Lymphocytes Percent Auto 9.1 % (18.3-44.2); Mean Corpuscular HGB Conc 31.2 g/dl (32-36); Mean Corpuscular Hemoglobin 26.1 pg (26-34); Mean Corpuscular Volume 83.9 fl (80-100); Mean Platelet Volume 9.6 fl (7.4-10.4); Monocytes Absolute Auto 0.3 K/mm3 (0.1-0.6); Neutrophils Absolute Auto 5.7 K/mm3 (1.3-6.7); Neutrophils Percent Auto 86.2 % (45.5-73.1); Platelet Count Result 246 k/mm3 (150-375); Red Cell Distribution Width 13.5 % (11.5-14.5); White Blood Count 6.7 K/mm3 (4.5-10.0)
[2021-07-12] MEDS: ACETAMINOPHEN 325 MG TABLET 650 MG PO (14:22)
--- NOTE | 2021-07-12 14:25 | PC.NURSE ---
Pt to ct
[2021-07-12 14:32] LABS: Alanine Aminotransferase 11 U/L (6-35); Albumin Level 4.5 g/dL (3.5-5.1); Alkaline Phosphatase 103 U/L (38-126); Anion Gap 9 mmol/L (8-16); Aspartate Amino Transferase 23 U/L (14-36); Bilirubin,Total 0.4 mg/dL (0.2-1.3); Blood Urea Nitrogen 12 mg/dL (7-17); Calcium 9.3 mg/dL (8.4-10.2); Carbon Dioxide 26 mmol/L (22-30); Chloride 93 mmol/L (98-107); Estimated CRCL calculation 32 ml/min; Estimated Glomerular Filt Rate > 60; Glucose 162 mg/dL (65-110); Potassium 4.1 mmol/L (3.4-5.0); Sodium 128 mmol/L (137-145)
[2021-07-12 14:44] LABS: Troponin I < 0.012 ng/mL (0.000-0.034)
[2021-07-12 15:11] LABS: Amorphous Sediment Urine Few; Mucus Urine Rare /lpf; WBC Urine 0-3 /hpf
[2021-07-12 15:13] LABS: Color Urine Yellow (Yellow)
[2021-07-12 15:14] LABS: Appearance Urine Clear (Clear)
[2021-07-12 15:15] LABS: Blood Urine Trace-Intact (Negative); Glucose Urine UA Negative (Negative); Ketones Urine Trace mg/dL (Negative); Nitrate Urine Negative (Negative); Protein Urine 2+ mg/dL (Negative); pH Urine 7.5 (5.0-9.0)
[2021-07-12 15:16] LABS: Add Urine Microscopic? YES; Bilirubin Urine Negative (Negative); Leukocyte Esterase Ur Negative LEU/UL (Negative); Urobilinogen Urine 0.2 mg/dL (<2.0)
[2021-07-12 17:47] LABS: Troponin I < 0.012 ng/mL (0.000-0.034)
--- NOTE | 2021-07-12 17:49 | PC.NURSE ---
Report given to SALVATORE Adan at this time, pt cleared to come to floor.
--- NOTE | 2021-07-12 18:27 | ADMGEN ---
This patient, Sandy Myrick, was admitted to IMU Room 209-01. Patient/family oriented to hospital policies and general routines including ID bracelet, bed and alarms, visiting hours, pain management, procedures, bathroom and other care routines, personal items, smoking policy, room service/diet, and visiting hours. Information on how to activate the Rapid Response Team has been discussed. Patient/Family are encouraged to report perceived risks to care and to ask questions if they do not understand what they are told or what they should do.
--- NOTE | 2021-07-12 19:28 | PM.IMHP ---
H&P: HPI History of Present Illness Date/Time: Patient was placed observation status for expected length of stay less than 23 hours for management, will plan to re-evaluate tomorrow for improvement. 07/12/21 19:28 Chief Complaint: Headache Narrative: Ms. Myrick is an 81-year-old female who presented emergency room with complaints of nausea and vomiting overnight and intense headache. Patient's daughter is at bedside helping to give history. Patient states that she has had a headache for the last few days and did see her primary care provider for this reason and was placed on a new medication because her blood pressure was significantly elevated. Patient's daughter states the patient was placed on amlodipine and did take it for 1 day, but then started having nausea and vomiting overnight and has been known and has been unable to take any of her blood pressure medication today. Patient denies on any diarrhea. Patient denies any fever, but states she did have chills at times. Patient's daughter states that when they were checking her blood pressure was systolic in 200s over diastolic of 100s. At this point time patient denies any chest pain and states she is unsure that she ever had any chest discomfort. Per emergency room records patient did complain of chest discomfort at one point in time prior to arrival to the emergency room, but denied any chest discomfort while in the emergency room. Patient denies any shortness of breath, lightheadedness, or dizziness. Patient does have a known history of hypertension, which recently has been uncontrolled. Patient also has a known history of hypothyroidism, peptic ulcer disease, coronary artery disease, and bioprosthetic aortic valve replacement. Review of Systems Review of Systems: A 12 point review of systems was completed patient all pertinent positive and negative per HPI the remainder are unremarkable. [facility], [facility] Past Medical History Medical History Dysphagia H/O coronary angiogram Hypertension, essential Hypokalemia Hypothyroidism, unspecified Mixed hyperlipidemia Nausea Surgical History Surgical History H/O aortic valve replacement H/O cataract removal with insertion of prosthetic lens H/O esophagogastroduodenoscopy H/O: hysterectomy Hx of colonoscopy with polypectomy Family History Family History Father Hypertension Patient's father is Acute myocardial infarction Sibling Hypertension Mother Cerebrovascular accident Other Family history of bipolar disorder Social History Social History Social History: The patient lives with her . 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 She does not use any alcohol marijuana or illicit drugs. 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 Code status full code Smoking status: Never smoker Second hand tobacco smoke exposure: Yes Alcohol intake: never Substance use: never Substance use type: does not use Gender identity (if verbalized by the patient): Female Spiritual care concerns: No Meds Home Medications and Allergies Home Medications Medication Instructions Recorded Confirmed Type sucralfate 100 mg/mL oral See Rx Instructions .Route 11/09/20 03/18/21 Rx suspension .COMPLEX #420 mL metoprolol tartrate 25 mg tablet See Rx Instructions .Route 03/11/21 06/27/21 Rx .COMPLEX #90 tabs fluticasone propionate 50 See Rx Instructions .Route 05/28/21 06/27/21 Rx mcg/actuation nasal .COMPLEX #16 mL spray,suspension cholecalciferol (vitamin D3) 25 25 mcg PO DAILY #90 tabs 06/05/21 07/12/21 Rx mcg (1,000 unit) tablet nitroglycerin 0.4 mg sublingual 0.4 mg sublingual Q5M PRN chest 06/05/21 06/27/21 Rx tablet pain #75 tabs
[2021-07-12] MEDS: hydrALAZINE HCL 20 MG/ML VIAL 10 MG IV PUSH (20:16)
--- NOTE | 2021-07-12 20:20 | PC.NURSE ---
Nitroglycerin transdermal patch removed from pt's left upper arm. Patch not dated or timed. Home meds still to be reviewed by provider.
[2021-07-12 20:47] LABS: Troponin I < 0.012 ng/mL (0.000-0.034)
[2021-07-12] MEDS: PROMETHAZINE HCL 25 MG/ML AMPUL 12.5 MG IV PUSH (21:27)
[2021-07-13] VITALS (18 sets, daily range): BP systolic 115–218; BP diastolic 60–117; PULSE 77–115; RESP 16–24; TEMP 35.9–37.7; O2SAT 96–99; BMI 16.0
[2021-07-13 02:13] LABS: Glucose Point of Care 167 mg/dl (65-105)
[2021-07-13] MEDS: hydrALAZINE HCL 20 MG/ML VIAL 10 MG IV PUSH (02:21)
--- NOTE | 2021-07-13 02:47 | PC.NURSE ---
At approximately 0200, pt was noted to be coughing. Staff checked on pt to see if nausea had returned. Pt nonverbal at that time. Eyes looking to the right, pt would only look to the left if tapped on the shoulder. Pt frequently spitting white,thick mucus. Pt does not follow commands. BP 204/117, blood sugar 167. Dr. Astudillo notified. Ordered hydralazine 10 mg IVP and stat head CT. Nurse and tech accompanied pt to CT. Pt was able to say God help me on the way to cat scan. Pt mumbling through entire scan, unable to be redirected to lie still during imaging. Awaiting stat rad results. facility manager and warehouse associate driver aware of change in pt condition.
--- NOTE | 2021-07-13 03:18 | PC.NURSE ---
0245 pt favoring right side, will not focus on left. Unable to complete NIH as pt doesn't follow commands. Pt has tremors; pupils equal and reactive. When asked to state name or date pt says please help me but otherwise mumbles incoherent sounds. Last known well 9pm per Bhumika Zaragoza RN as patient has been sleeping throughout evening.
--- NOTE | 2021-07-13 03:23 | PC.NURSE ---
Dr. Astudillo at pt's bedside. Pt is awake, not talking or following commands. Pt did look purposefully towards the door when radiology techs entered her room.
--- NOTE | 2021-07-13 03:23 | ECG_ITS ---
Measurements Intervals [place] Rate: 117 P: 78 MA: 151 QRS: 69 QRSD: 106 T: 253 QT: 345 QTc: 482 Interpretive Statements SINUS TACHYCARDIA LEFT VENTRICULAR HYPERTROPHY AND ST-T CHANGE PEAKED T WAVES- CONSIDER HYPERKALEMIA OR ISCHEMIA ST-T WAVE ABNORMALITY IN INF/LAT LEADS- CONSIDER ISCHEMIA BASELINE ARTIFACT- I, II, III, AVR, AVL, AVF, V1-V6 ABNORMAL ECG Electronically Signed On 07-13-2021 15:54:07 CDT by Ziggy Munguia D.O.
--- NOTE | 2021-07-13 03:40 | PC.NURSE ---
Pt drowsy. Pt is able to state her first name and states that she is at the hospital. Does not follow other commands.
[2021-07-13 03:54] LABS: Alveolar/Arterial O2 Gradient 23.5 mmHg; Base Excess ABG 1.5 mEq/l (+/-2.0); Carboxyhemoglobin 0.3 % THb (0-2.0); Fractional Inspired Oxygen 21 %; HCO3 ABG 24.6 mEq/l (22.0-26.0); Methemoglobin ABG 0.5 %THb (0-1.5); Oxygen Saturation ABG 97.2 % (95.0-100.0); PCO2 ABG 33.7 mmHg (35.0-45.0); PO2 ABG 85.9 mmHg (80.0-100.0); PO2 FiO2 Ratio Arterial Blood 4.09 %; Reduced Hemoglobin 3.2 %THb (0-5.0); Site Drawn RIGHT BRACHIAL; Total Hemoglobin 11.8 g/dL (12.0-18.0); pH ABG 7.481 (7.350-7.450)
[2021-07-13 03:55] LABS: Device ROOM AIR
[2021-07-13 04:04] LABS: Basophils Percent Auto 0.1 % (0.2-1.2); Hematocrit 35.2 % (37.0-47.0); Immature Granulocyte Absolute 0.06 K/mm3 (0.00-0.031); Immature Granulocyte Percent A 0.5 % (0-0.5); Lymphocytes Absolute Auto 0.43 K/mm3 (0.9-3.2); Lymphocytes Percent Auto 3.3 % (18.3-44.2); Mean Corpuscular HGB Conc 31.3 g/dl (32-36); Mean Corpuscular Hemoglobin 26.3 pg (26-34); Mean Platelet Volume 9.5 fl (7.4-10.4); Monocytes Percent Auto 7.6 % (2.6-8.5); Neutrophils Absolute Auto 11.5 K/mm3 (1.3-6.7); Neutrophils Percent Auto 88.5 % (45.5-73.1); Platelet Count Result 302 k/mm3 (150-375); Red Blood Count 4.19 M/mm3 (4.2-5.4); Red Cell Distribution Width 13.5 % (11.5-14.5)
[2021-07-13 04:16] LABS: Ammonia < 9 umol/L (9-30)
[2021-07-13 04:17] LABS: Lactic Acid Reflex 1.5 mmol/L (0.7-2.0)
[2021-07-13 04:18] LABS: Alanine Aminotransferase 12 U/L (6-35); Albumin Level 4.3 g/dL (3.5-5.1); Alkaline Phosphatase 101 U/L (38-126); Anion Gap 9 mmol/L (8-16); Aspartate Amino Transferase 23 U/L (14-36); Bilirubin,Total 0.4 mg/dL (0.2-1.3); Blood Urea Nitrogen 13 mg/dL (7-17); Calcium 9.4 mg/dL (8.4-10.2); Carbon Dioxide 25 mmol/L (22-30); Chloride 93 mmol/L (98-107); Estimated CRCL calculation 48 ml/min; Estimated Glomerular Filt Rate > 60; Glucose 165 mg/dL (65-110); Sodium 127 mmol/L (137-145)
[2021-07-13 04:21] LABS: INR 1.1; Prothrombin Time 13.5 Seconds (11.1-14.7)
[2021-07-13 04:31] LABS: Troponin I 0.064 ng/mL (0.000-0.034)
--- NOTE | 2021-07-13 05:23 | P.PNCROSS_ITS ---
Event Note Event Note Event Note: Called to patient's bedside due to acute mental status change per nursing staff. Apparently the patient was becoming intermittently responsive and not following commands suddenly. Vital signs significant only for elevated blood pressure of 204/117. Hydralazine was given 10 mg IV and blood pressure came down to 141/61, repeat 157/60. Bedside exam showed a frail, chronically ill patient in no acute respiratory distress, resting somewhat uncomfortably. She was able to spontaneously move all 4 extremities. Pupils were equal round and reactive to light and accommodation bilaterally. Patient had a spontaneous strong cough during exam. Heart was regular rate and rhythm with no obvious murmurs rubs or gallops. Lungs were clear to auscultation bilaterally. No signs of aspiration noted. Abdomen was soft, nontender, nondistended. Extremities were without edema, muscle wasting noted. Unable to perform overt muscle strength testing. Stat CT head ordered and was negative for new stroke or hemorrhage. Chest x-ray performed. I reviewed and noted some hyperinflation without any obvious acute infiltrates. Official read pending. Neurology consult pending. Labs ordered. White count jumped from 6.7 up to 13. Sodium 127, down from 128. Mild troponin bump noted up 0.064. Stat EKG ordered and pending. Will trend troponin and consult Cardiology. Place patient on telemetry. Broad-spectrum antibiotics started, Vanc and cefepime, blood and urine cultures pending. Procalcitonin, CRP pending. Differential exam includes new stroke, hemorrhagic conversion, aspiration pneumonia, seizures, multifactorial metabolic encephalopathy, infectious etiolo gy.
[2021-07-13 06:18] LABS: Appearance Urine Cloudy (Clear); Bilirubin Urine Negative (Negative); Blood Urine Negative (Negative); Glucose Urine UA Negative (Negative); Ketones Urine 1+ mg/dL (Negative); Leukocyte Esterase Ur Negative LEU/UL (NEGATIVE); Nitrate Urine Positive (Negative); Protein Urine 2+ mg/dL (Negative); Urobilinogen Urine 0.2 mg/dL (<2.0)
[2021-07-13 06:21] LABS: Add Urine Microscopic? YES; Color Urine Light Yellow (Yellow)
[2021-07-13 06:23] LABS: Mucus Urine Rare /lpf; RBC Urine 0-2 /hpf (0-2); WBC Urine 0-3 /hpf (0-3)
[2021-07-13 06:29] LABS: Amphetamine Screen Urine Negative (Negative); Barbiturate Screen Urine Negative (Negative); Benzodiazepines Screen Urine Negative (Negative); Cannabinoid Screen Urine Negative (Negative); Cocaine Screen Urine Negative (Negative); Methadone Screen Urine Negative (Negative); Opiate Screen Urine Negative (Negative); Phencyclidine Screen Urine Negative (Negative)
[2021-07-13 06:50] LABS: CRP < 0.5 mg/dL (<1.0)
[2021-07-13 06:57] LABS: Troponin I 0.082 ng/mL (0.000-0.034)
[2021-07-13 07:04] LABS: Procalcitonin 0.1 ng/mL
--- NOTE | 2021-07-13 07:33 | PC.NURSE ---
Spoke at length with pt's daughter, Nevin ([phone]). Updated Nevin to the events of the night and to pt's current condition. Nevin states that she and her sister feel like the pt has dementia or sundowners. States the pt can be rude at times, especially in the evening. States pt's movements can be slow and speech can be delayed. Also notes that pt had experienced some kind of environmental exposure years ago, combined with poor circulation, that causes pt's hands to turn blue/purple.
[2021-07-13] MEDS: NITROGLYCERIN 0.4 MG/HR PATCH 1 PATCH TOPICAL (08:38)
[2021-07-13] MEDS: ENOXAPARIN 40 MG/0.4 ML SYRINGE SUB-Q (08:38)
[2021-07-13 10:19] LABS: Troponin I 0.069 ng/mL (0.000-0.034)
--- NOTE | 2021-07-13 12:28 | ECG_ITS ---
Measurements Intervals [place] Rate: 109 P: UT: 0 QRS: 74 QRSD: 101 T: -72 QT: 345 QTc: 465 Interpretive Statements SINUS TACHYCARDIA LEFT VENTRICULAR HYPERTROPHY AND ST-T CHANGE BORDERLINE ST-T WAVE ABNORMALITY- INF/LAT LEADS BASELINE ARTIFACT- I, II, III, AVR, AVL, AVF, V1-V6 ABNORMAL ECG Electronically Signed On 07-13-2021 16:02:05 CDT by Ziggy Munguia D.O.
--- NOTE | 2021-07-13 13:35 | WPDNEURCNPN ---
Consult date: 07/13/21 Time Seen: 14:30 Reason for consult: fluctuating mental status in addition to documented high blood pressure that is 204/117 and underlying chronically ill patient, stat CT scan done which revealed central and cortical cerebral atrophy bilateral carotid siphon internal carotid artery and vertebral artery calcifications, no intracranial mass or bleed ,midline shift or subdural or epidural hematoma. HPI: Sandy Myrick is a 81 year old female admitted to the hospital through the emergency room with complaints of nausea vomiting and intense headache pertinent information was obtained from patient's daughter by the initial physician it was documented that she has headache of several days duration and was started on new medication by the PMD for hypertension that is amlodipine but subsequent started having nausea and vomiting overnight and was unable to take any antihypertensive medication she complained of chills but had no fever she was noted to have systolic of 200 over diastolic of 100 and she is known to have hypertension which is rather uncontrolled recently in addition to peptic ulcer disease and hypothyroidism and coronary artery disease in addition to buy prosthetic aortic valve replacement Review of Systems Review of Systems: All systems reviewed & are unremarkable except as noted in HPI and below PMFSH Past Medical History Medical History Dysphagia H/O coronary angiogram Hypertension, essential Hypokalemia Hypothyroidism, unspecified Mixed hyperlipidemia Nausea Surgical History Surgical History H/O aortic valve replacement H/O cataract removal with insertion of prosthetic lens H/O esophagogastroduodenoscopy H/O: hysterectomy Hx of colonoscopy with polypectomy Family History Family History Father Hypertension Patient's father is Acute myocardial infarction Sibling Hypertension Mother Cerebrovascular accident Other Family history of bipolar disorder Social History Social History Social History: The patient lives with her . 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 She does not use any alcohol marijuana or illicit drugs. 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 Code status full code Smoking status: Never smoker Second hand tobacco smoke exposure: Yes Alcohol intake: never Substance use: never Substance use type: does not use Gender identity (if verbalized by the patient): Female Spiritual care concerns: No Meds Home Medications and Allergies Home Medications Medication Instructions Recorded Confirmed Type cholecalciferol (vitamin D3) 25 25 mcg PO DAILY #90 tabs 06/05/21 07/12/21 Rx mcg (1,000 unit) tablet nitroglycerin 0.4 mg sublingual 0.4 mg sublingual Q5M PRN chest 06/05/21 07/12/21 Rx tablet pain #75 tabs pantoprazole 40 mg tablet,delayed 40 mg PO QAM #90 tabs 06/24/21 07/12/21 Rx release (Protonix) buspirone 5 mg tablet 5 mg PO BID anxiety #60 tabs 06/27/21 07/12/21 Rx tramadol 50 mg tablet 50 mg PO Q8H PRN pain #60 tabs 06/27/21 07/12/21 Rx nitroglycerin 0.4 mg/hr See Rx Instructions .Route 07/08/21 07/12/21 Rx transdermal 24 hour patch .COMPLEX #30 patches amlodipine 5 mg tablet 5 mg PO DAILY #30 tabs 07/11/21 07/12/21 Rx clopidogrel 75 mg tablet (Plavix) 75 mg PO QMWF 07/12/21 07/12/21 History levothyroxine 25 mcg tablet 1 mcg PO DAILY 07/12/21 07/12/21 History magnesium oxide 400 mg (241.3 mg 400 mg PO QMWF 07/12/21 07/12/21 History magnesium) tablet metoprolol tartrate 25 mg tablet 25 mg PO DAILY 07/12/21 07/12/21 History simvastatin 20 mg tablet 20 mg PO HS 07/12/21 07/12/21 History Allergies Allergy/AdvReac Type Severity Reaction Status Date / Time azithromycin Allergy
--- NOTE | 2021-07-13 13:55 | PC.NURSE ---
Received by [facility] from [facility] /.
--- NOTE | 2021-07-13 14:09 | PC.NURSE ---
This patient, Sandy Myrick, was transferred to [facility] on 07/13/21 at 1355. Personal belongings sent with patient. Report given to Amy CHASE. Appropriate documentation sent with patient.
--- NOTE | 2021-07-13 16:40 | PM.CNCAR ---
Assessment and Plan Assessment and plan (1) Troponin level elevated: Code(s): R77.8 - Other specified abnormalities of plasma proteins Status: Acute Assessment and Plan: Mild troponin elevation already trending down most likely secondary to hypertensive urgency and or sepsis. No associated or or reliably reported chest pain. It is unclear why troponin was obtained initially as patient became less responsive in setting of hypertensive urgency, leukocytosis. Twelve lead EKG consistent with sinus tachycardia, LVH with ST-T abnormality strain versus ischemia. Per prior cardiovascular records patient had normal coronary anatomy preoperative to her bioprosthetic aortic valve replacement. Either way, given lack of ischemic symptoms downward trending troponin with slight elevation in setting of hypertensive urgency recommend judicious BP control and conservative management in this regard. Patient is not a candidate nor is it indicated to pursue ischemic testing. 2D echocardiogram to assess bioprosthetic aortic valve replacement, LV size/function, pulmonary pressures. Conservative management indicated at this time in this regard. Further recommendation to follow as appropriate. (2) UTI (urinary tract infection): Qualifiers: Urinary tract infection type: site unspecified Hematuria presence: without hematuria Qualified Code(s): N39.0 - Urinary tract infection, site not specified Code(s): N39.0 - Urinary tract infection, site not specified Status: Acute Assessment and Plan: Management per primary service. Significant leukocytosis. Patient high risk for dehydration. If remains tachycardic and or relatively hypotensive give IV fluid bolus 500 cc over 2 hours and observe response. (3) Altered mental status: Code(s): R41.82 - Altered mental status, unspecified Status: Acute Assessment and Plan: Per primary service. Neurology consultation noted. CT head without acute events. Possibly secondary to infectious etiology (4) Uncontrolled hypertension: Code(s): I10 - Essential (primary) hypertension Status: Acute Assessment and Plan: As above. Per primary service. (5) History of aortic valve replacement with bioprosthetic valve: Code(s): Z95.3 - Presence of xenogenic heart valve Status: Acute Assessment and Plan: Prophylactic antibiotics prior to dental/surgical procedures. 2D echo as above. No clinical suggestion of significant dysfunction at this time. Recommendation to follow as appropriate. History of Present Illness History of Present Illness Consult date/time: Date of service: 07/13/21 16:40 Cardiology consultation at the request of Dr. Miguel of the [facility] service for our opinion regarding elevated troponin. Requesting physician: Razia Astudillo DO Reason For Visit: Chest pain Narrative: Patient is 81-year-old female admitted 07/12/2021 initial with complaints of nausea, vomiting and headache. Patient was quite hypertensive with systolic blood pressures on occasion up to 200 mm Hg. Per electronic medical record it was reported she had headache for several days and had recently been started on new medication for blood pressure. Per records it. She has had great difficulty with manual blood pressure over the years after starting this new medication she began to experience nausea vomiting and due to inability to take her medications presented to the emergency department. No reported fever, chills diarrhea at that time. It is documented the patient denied chest pain although in the ER there was mention of chest pain at some point but this has not been corroborated. Initial serial troponins negative x3. Earlier this morning patient had more acute altered mental status for to CT head chest x-ray obtained and did not reveal acute pathology. Troponins were obtained for unclear reasons were mildly elevated peaking at 0.0
--- NOTE | 2021-07-13 19:44 | PM.IMPN ---
Progress Note: A&P Assessment and Plan (1) Nausea & vomiting: Code(s): R11.2 - Nausea with vomiting, unspecified Status: Acute Assessment and Plan: Sudden onset. Improved this morning after treatment in the ED. No obstruction on KUB. UDS negative. May have gastroenteritis. SBP in 200s at presentation. May be due to urinary tract infection. Appears to have resolved. -Continue treatment for UTI (2) Altered mental status: Code(s): R41.82 - Altered mental status, unspecified Status: Acute Assessment and Plan: New since presentation to hospital. May be related to decreasing BP too rapidly as patient SBP in 200s in ED and SBP now in the 110s. Also has UTI, which usually causes confusion per daughter and per daughter patient has not slept since Thursday. CT head w/ no acute intracranial processes. BMP largely normal except hyponatremia, which is chronic. LFTs and ammonia normal. Lactate normal. -Neurology Consult -Continue treatment for UTI -TSH (3) UTI (urinary tract infection): Qualifiers: Urinary tract infection type: site unspecified Hematuria presence: without hematuria Qualified Code(s): N39.0 - Urinary tract infection, site not specified Code(s): N39.0 - Urinary tract infection, site not specified Status: Acute Assessment and Plan: UCX pending. On cefepime and vancomycin. Continue. (4) Uncontrolled hypertension: Code(s): I10 - Essential (primary) hypertension Status: Acute Assessment and Plan: Improved with SBP 110s-150s. Will continue with amlodipine and metoprolol. (5) Anemia, unspecified: Code(s): D64.9 - Anemia, unspecified Status: Acute Assessment and Plan: Microcytic. Chronic and appears to have improved compared to previous labs. -Iron studies -Vitamin b12 & folate (6) Coronary artery disease involving [place] coronary artery of [place] heart: Code(s): I25.10 - Atherosclerotic heart disease of [place] coronary artery without angina pectoris Status: Acute Assessment and Plan: On BB and ASA. (7) Generalized anxiety disorder: Code(s): F41.1 - Generalized anxiety disorder Status: Acute Assessment and Plan: Holding all sedating medication for now. (8) Hyperlipidemia, unspecified: Qualifiers: Hyperlipidemia type: unspecified Qualified Code(s): E78.5 - Hyperlipidemia, unspecified Code(s): E78.5 - Hyperlipidemia, unspecified Status: Acute Assessment and Plan: Continue statin. (9) Hypothyroidism, unspecified: Qualifiers: Hypothyroidism type: acquired Qualified Code(s): E03.9 - Hypothyroidism, unspecified Code(s): E03.9 - Hypothyroidism, unspecified Status: Chronic Assessment and Plan: Checking TSH. Continue home med for now. Subjective Date/time seen: 07/13/21 1015 Daughter is at bedside. Patient is confused. Daughter says patient becomes confused when she has a urinary tract infection. Daughter says the caregiver texted her yesterday saying the patient was having nausea and vomiting, so daughter instructed caregiver to take patient to the ED. Review of Systems Review of Systems: Unable to obtain as patient has altered mental status. Objective Data Vital Signs Vital Signs: Vital Signs - 24 hr 07/12/21 20:56 07/12/21 20:00 07/12/21 22:00 Temperature Pulse Rate 79 102 H Respiratory Rate Blood Pressure 155/57 H Pulse Oximetry Oxygen Delivery 07/12/21 20:00 07/12/21 23:55 07/13/21 00:00 Temperature 99 F Pulse Rate 105 H Respiratory Rate 20 Blood Pressure 167/60 H Pulse Oximetry 99 Oxygen Delivery Room Air Room Air 07/13/21 00:00 07/13/21 02:10 07/13/21 02:10 Temperature 98.4 F 98.4 F Pulse Rate 115 H 110 H 113 H Respiratory Rate 20 24 H Blood Pressure 204/117 H 204/117 H Pulse Oximetry 96 97 Oxygen
[2021-07-13 21:01] LABS: Transferrin 202 mg/dL (206-381)
[2021-07-13 21:16] LABS: Iron 52 ug/dL (37-170)
[2021-07-13 21:25] LABS: Percent Iron Saturation 18 % (20-50)
[2021-07-13 21:33] LABS: Free T4 Free Thyroxine 1.28 ng/mL (0.78-2.19)
[2021-07-14] VITALS (9 sets, daily range): BP systolic 151–158; BP diastolic 84–91; PULSE 74–103; RESP 16–18; TEMP 36.1–36.6; O2SAT 97
[2021-07-14 05:56] LABS: Basophils Percent Auto 0.3 % (0.2-1.2); Eosinophils Absolute Auto 0.1 K/mm3 (0-0.3); Hemoglobin 11.3 g/dL (12.0-15.0); Immature Granulocyte Absolute 0.03 K/mm3 (0.00-0.031); Immature Granulocyte Percent A 0.5 % (0-0.5); Lymphocytes Absolute Auto 0.79 K/mm3 (0.9-3.2); Lymphocytes Percent Auto 13.2 % (18.3-44.2); Mean Corpuscular HGB Conc 32.3 g/dl (32-36); Mean Corpuscular Hemoglobin 26.5 pg (26-34); Mean Corpuscular Volume 82.2 fl (80-100); Mean Platelet Volume 9.8 fl (7.4-10.4); Monocytes Absolute Auto 0.5 K/mm3 (0.1-0.6); Monocytes Percent Auto 8.3 % (2.6-8.5); Neutrophils Absolute Auto 4.6 K/mm3 (1.3-6.7); Neutrophils Percent Auto 76.7 % (45.5-73.1); Platelet Count Result 229 k/mm3 (150-375); Red Blood Count 4.26 M/mm3 (4.2-5.4); Red Cell Distribution Width 13.5 % (11.5-14.5)
[2021-07-14 06:10] LABS: Alanine Aminotransferase 10 U/L (6-35); Albumin Level 4.5 g/dL (3.5-5.1); Alkaline Phosphatase 87 U/L (38-126); Anion Gap 11 mmol/L (8-16); Aspartate Amino Transferase 30 U/L (14-36); Bilirubin,Total 0.7 mg/dL (0.2-1.3); Blood Urea Nitrogen 16 mg/dL (7-17); Calcium 9.1 mg/dL (8.4-10.2); Carbon Dioxide 22 mmol/L (22-30); Chloride 96 mmol/L (98-107); Estimated CRCL calculation 40 ml/min; Estimated Glomerular Filt Rate > 60; Glucose 104 mg/dL (65-110); Potassium 3.6 mmol/L (3.4-5.0); Sodium 129 mmol/L (137-145)
--- NOTE | 2021-07-14 09:30 | PC.NURSE ---
Bedside swallow completed on pt. Pt passed. It is recommended to give pt small bites, reminding her to swallow, and allowing time for pt to swallow. Took in thin liquids without issue.
[2021-07-14] MEDS: busPIRone HCL 5 MG TABLET PO (09:37)
[2021-07-14] MEDS: NITROGLYCERIN 0.4 MG/HR PATCH 1 PATCH TOPICAL (09:37)
[2021-07-14] MEDS: ENOXAPARIN 40 MG/0.4 ML SYRINGE SUB-Q (09:38)
[2021-07-14] MEDS: CHOLECALCIFEROL 1,000 UNITS TABLET 1000 UNITS PO (09:38)
[2021-07-14] MEDS: PANTOPRAZOLE 40 MG TABLET PO (09:38)
[2021-07-14] MEDS: amLODIPine BESYLATE 5 MG TABLET PO (09:38)
[2021-07-14] MEDS: METOPROLOL TARTRATE 25 MG TABLET PO (09:39)
--- NOTE | 2021-07-14 14:11 | WPDNEURCNPN ---
Assessment and Plan Assessment and plan (1) Encephalopathy: Code(s): G93.40 - Encephalopathy, unspecified Status: Acute Plan generalized poor nutrition with being awake and alert but unclear speech unclear mental status generally contracted in upper and lower extremities with emaciation and hypertension which is being controlled but remains is still confused will benefit from the nutritional status Additional Plan nutritional therapy and physical therapy Consult date: 07/14/21 HPI: Sandy Myrick is a 81 year old female admitted to the hospital for the complaints of fluctuating mental status in addition to documented high blood pressure that is 204/117 and underlying chronically ill patient, the CT scan of the head done revealed central and cortical cerebral atrophy with bilateral carotid siphon internal carotid artery and vertebral artery calcifications but no intracranial mass or bleed no midline shift or subdural or epidural hematoma. She was admitted with the complaints of nausea and vomiting an intense headache of several days duration was recently started a new medication by PMD for hypertension that is amlodipine but when she started having nausea and vomiting overnight she was unable to take any medication and complains of chills without any fever at that time she was noted to have systolic blood pressure of 200 with diastolic 100 though she is known to have hypertension but obviously it was rather uncontrolled in addition to peptic ulcer disease and hypothyroidism and coronary artery disease Review of Systems Review of Systems: All systems reviewed & are unremarkable except as noted in HPI and below PMFSH Past Medical History Medical History Dysphagia H/O coronary angiogram Hypertension, essential Hypokalemia Hypothyroidism, unspecified Mixed hyperlipidemia Nausea Surgical History Surgical History H/O aortic valve replacement H/O cataract removal with insertion of prosthetic lens H/O esophagogastroduodenoscopy H/O: hysterectomy Hx of colonoscopy with polypectomy Family History Family History Father Hypertension Patient's father is Acute myocardial infarction Sibling Hypertension Mother Cerebrovascular accident Other Family history of bipolar disorder Social History Social History Social History: The patient lives with her . 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 She does not use any alcohol marijuana or illicit drugs. 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 Code status full code Smoking status: Never smoker Second hand tobacco smoke exposure: Yes Alcohol intake: never Substance use: never Substance use type: does not use Gender identity (if verbalized by the patient): Female Spiritual care concerns: No Meds Home Medications and Allergies Home Medications Medication Instructions Recorded Confirmed Type cholecalciferol (vitamin D3) 25 25 mcg PO DAILY #90 tabs 06/05/21 07/12/21 Rx mcg (1,000 unit) tablet nitroglycerin 0.4 mg sublingual 0.4 mg sublingual Q5M PRN chest 06/05/21 07/12/21 Rx tablet pain #75 tabs pantoprazole 40 mg tablet,delayed 40 mg PO QAM #90 tabs 06/24/21 07/12/21 Rx release (Protonix) buspirone 5 mg tablet 5 mg PO BID anxiety #60 tabs 06/27/21 07/12/21 Rx tramadol 50 mg tablet 50 mg PO Q8H PRN pain #60 tabs 06/27/21 07/12/21 Rx nitroglycerin 0.4 mg/hr See Rx Instructions .Route 07/08/21 07/12/21 Rx transdermal 24 hour patch .COMPLEX #30 patches amlodipine 5 mg tablet 5 mg PO DAILY #30 tabs 07/11/21 07/12/21 Rx clopidogrel 75 mg tablet (Plavix) 75 mg PO QMWF 07/12/21 07/12/21 History levothyroxine 25 mcg tablet 1 mcg PO DAILY 07/12/21 07/12/21 History magnesium oxide
--- NOTE | 2021-07-14 19:25 | PM.IMPN ---
Progress Note: A&P Assessment and Plan (1) Nausea & vomiting: Code(s): R11.2 - Nausea with vomiting, unspecified Status: Acute Assessment and Plan: Sudden onset. Improved this morning after treatment in the ED. No obstruction on KUB. UDS negative. May have gastroenteritis. SBP in 200s at presentation. May be due to urinary tract infection. Appears to have resolved. -Continue treatment for UTI (2) Altered mental status: Code(s): R41.82 - Altered mental status, unspecified Status: Acute Assessment and Plan: New since presentation to hospital. May be related to decreasing BP too rapidly as patient SBP in 200s in ED and SBP now in the 110s. Also has UTI, which usually causes confusion per daughter and per daughter patient has not slept since Thursday. CT head w/ no acute intracranial processes. BMP largely normal except hyponatremia, which is chronic. LFTs and ammonia normal. Lactate normal. Neurology consulted. TSH elevated but free t4 normal. Patient improved this morning. -Appreciate Neurology recommendations -Continue treatment for UTI (3) UTI (urinary tract infection): Qualifiers: Urinary tract infection type: site unspecified Hematuria presence: without hematuria Qualified Code(s): N39.0 - Urinary tract infection, site not specified Code(s): N39.0 - Urinary tract infection, site not specified Status: Acute Assessment and Plan: UCX with e. coli On cefepime and vancomycin. -Discontinue vancomycin -Continue cefepime (4) Uncontrolled hypertension: Code(s): I10 - Essential (primary) hypertension Status: Acute Assessment and Plan: Improved with SBP 150s. Will continue with amlodipine and metoprolol. (5) Anemia, unspecified: Code(s): D64.9 - Anemia, unspecified Status: Acute Assessment and Plan: Microcytic. Chronic and appears to have improved compared to previous labs. Normal b12 and folate. Will monitor. (6) Coronary artery disease involving [place] coronary artery of [place] heart: Code(s): I25.10 - Atherosclerotic heart disease of [place] coronary artery without angina pectoris Status: Acute Assessment and Plan: On BB and ASA. (7) Generalized anxiety disorder: Code(s): F41.1 - Generalized anxiety disorder Status: Acute Assessment and Plan: Holding all sedating medication for now. (8) Hyperlipidemia, unspecified: Qualifiers: Hyperlipidemia type: unspecified Qualified Code(s): E78.5 - Hyperlipidemia, unspecified Code(s): E78.5 - Hyperlipidemia, unspecified Status: Acute Assessment and Plan: Continue statin. (9) Hypothyroidism, unspecified: Qualifiers: Hypothyroidism type: acquired Qualified Code(s): E03.9 - Hypothyroidism, unspecified Code(s): E03.9 - Hypothyroidism, unspecified Status: Chronic Assessment and Plan: Elevated TSH but normal free t4. Continue home. Subjective Date/time seen: 07/14/21 1000 Patient denies having any pain. States her full name and date of . States she is at [facility]. Review of Systems Neurologic: Reports confusion Objective Data Vital Signs Vital Signs: Vital Signs - 24 hr 07/13/21 19:36 07/13/21 20:00 07/13/21 20:00 Temperature 97.7 F Pulse Rate 77 88 88 Respiratory Rate 16 16 Blood Pressure 144/85 H Pulse Oximetry 99 99 Oxygen Delivery Room Air 07/14/21 00:00 07/14/21 04:12 07/14/21 04:00 Temperature 97.8 F Pulse Rate 82 78 87 Respiratory Rate 16 Blood Pressure 151/84 H Pulse Oximetry 97 Oxygen Delivery 07/14/21 08:05 07/14/21 08:05 07/14/21 12:00 Temperature Pulse Rate 79 74 Respiratory Rate Blood Pressure Pulse Oximetry Oxygen Delivery Room Air 07/14/21 14:43 07/14/21 16:00 Temperature 96.9 F L Pulse Rate 87 91 Respirator
[2021-07-14] MEDS: SIMVASTATIN 20 MG TABLET PO (19:49)
[2021-07-15] VITALS (9 sets, daily range): BP systolic 150–191; BP diastolic 75–91; PULSE 77–98; RESP 16–18; TEMP 35.9–36.6; O2SAT 95–100
[2021-07-15 05:24] LABS: Basophils Percent Auto 0.2 % (0.2-1.2); Eosinophils Percent Auto 0.2 % (0-4.4); Hematocrit 35.6 % (37.0-47.0); Hemoglobin 11.7 g/dL (12.0-15.0); Immature Granulocyte Absolute 0.03 K/mm3 (0.00-0.031); Immature Granulocyte Percent A 0.5 % (0-0.5); Lymphocytes Absolute Auto 0.83 K/mm3 (0.9-3.2); Lymphocytes Percent Auto 13.2 % (18.3-44.2); Mean Corpuscular HGB Conc 32.9 g/dl (32-36); Mean Corpuscular Hemoglobin 26.5 pg (26-34); Mean Corpuscular Volume 80.7 fl (80-100); Mean Platelet Volume 9.1 fl (7.4-10.4); Monocytes Absolute Auto 0.5 K/mm3 (0.1-0.6); Monocytes Percent Auto 8.4 % (2.6-8.5); Neutrophils Absolute Auto 4.9 K/mm3 (1.3-6.7); Neutrophils Percent Auto 77.5 % (45.5-73.1); Platelet Count Result 276 k/mm3 (150-375); Red Blood Count 4.41 M/mm3 (4.2-5.4); Red Cell Distribution Width 13.2 % (11.5-14.5); White Blood Count 6.3 K/mm3 (4.5-10.0)
[2021-07-15 05:34] LABS: Anion Gap 16 mmol/L (8-16); Blood Urea Nitrogen 16 mg/dL (7-17); Calcium 9.5 mg/dL (8.4-10.2); Carbon Dioxide 21 mmol/L (22-30); Chloride 93 mmol/L (98-107); Estimated CRCL calculation 35 ml/min; Estimated Glomerular Filt Rate > 60; Glucose 73 mg/dL (65-110); Potassium 2.9 mmol/L (3.4-5.0); Sodium 130 mmol/L (137-145)
[2021-07-15] MEDS: LEVOTHYROXINE SODIUM 25 MCG TABLET PO (06:10)
--- NOTE | 2021-07-15 07:49 | PM.IMPN ---
Progress Note: A&P Assessment and Plan (1) Metabolic acidosis: Code(s): E87.2 - Acidosis Status: Acute Assessment and Plan: Likely secondary to the vomiting. Will start IVF as patient is not eating or drinking. -LR at 75cc/hr timeout time 0300 (2) Nausea & vomiting: Code(s): R11.2 - Nausea with vomiting, unspecified Status: Acute Assessment and Plan: Sudden onset. Improved this morning after treatment in the ED. No obstruction on KUB. UDS negative. May have gastroenteritis. SBP in 200s at presentation. May be due to urinary tract infection. Appears to have resolved. -Continue treatment for UTI (3) Altered mental status: Code(s): R41.82 - Altered mental status, unspecified Status: Acute Assessment and Plan: New since presentation to hospital. May be related to decreasing BP too rapidly as patient SBP in 200s in ED and SBP now in the 110s. Also has UTI, which usually causes confusion per daughter and per daughter patient has not slept since Thursday. CT head w/ no acute intracranial processes. BMP largely normal except hyponatremia, which is chronic. LFTs and ammonia normal. Lactate normal. Neurology consulted. TSH elevated but free t4 normal. Improved yesterday but seem much more confused today. Likely due to the unfamiliar setting. -Appreciate Neurology recommendations -Continue treatment for UTI (4) UTI (urinary tract infection): Qualifiers: Urinary tract infection type: site unspecified Hematuria presence: without hematuria Qualified Code(s): N39.0 - Urinary tract infection, site not specified Code(s): N39.0 - Urinary tract infection, site not specified Status: Acute Assessment and Plan: UCX with e. coli pansensitive. -Continue cefepime for now due to confusion -Will de-escalate once improved mental status (5) Uncontrolled hypertension: Code(s): I10 - Essential (primary) hypertension Status: Acute Assessment and Plan: Improved with SBP 150s. Has been more elevated, which may be due to some agitation with her AMS but was previously SBP in 150s. -Increase amlodipine 10 mg po daily -Continue metoprolol (6) Anemia, unspecified: Code(s): D64.9 - Anemia, unspecified Status: Acute Assessment and Plan: Microcytic. Chronic and appears to have improved compared to previous labs. Normal b12 and folate. Anemia of chronic disease. (7) Coronary artery disease involving [place] coronary artery of [place] heart: Code(s): I25.10 - Atherosclerotic heart disease of [place] coronary artery without angina pectoris Status: Acute Assessment and Plan: On BB and ASA. (8) Generalized anxiety disorder: Code(s): F41.1 - Generalized anxiety disorder Status: Acute Assessment and Plan: Continue home buspar. (9) Hyperlipidemia, unspecified: Qualifiers: Hyperlipidemia type: unspecified Qualified Code(s): E78.5 - Hyperlipidemia, unspecified Code(s): E78.5 - Hyperlipidemia, unspecified Status: Acute Assessment and Plan: Continue statin. (10) Hypothyroidism, unspecified: Qualifiers: Hypothyroidism type: acquired Qualified Code(s): E03.9 - Hypothyroidism, unspecified Code(s): E03.9 - Hypothyroidism, unspecified Status: Chronic Assessment and Plan: Elevated TSH but normal free t4. Continue home. Subjective Date/time seen: 07/15/21 07:49 Patient is more confused today and says, God help me . Says, I don't know when asked if she has pain or any other question. Somewhat agitated. Review of Systems Review of Systems: ROS unobtainable: Yes unobtainable due to mental status Objective Data Vital Signs Vital Signs: Vital Signs - 24 hr 07/14/21 08:05 07/14/21 08:05 07/14/21 12:00 Temperature Pulse Rate 79 74 Respiratory Rate Blood Pressure
[2021-07-15] MEDS: NITROGLYCERIN 0.4 MG/HR PATCH 1 PATCH TOPICAL (08:57)
[2021-07-15] MEDS: ENOXAPARIN 40 MG/0.4 ML SYRINGE SUB-Q (08:58)
[2021-07-15] MEDS: POTASSIUM CHLORIDE INJ 40 MEQ in SODIUM CHLORIDE 0.9% IV 500 ML 130 MEQ IVPB (10:49)
--- NOTE | 2021-07-15 12:49 | PCSTNOTE ---
Please refer to the Bedside Swallow Evaluation in the EMR. Please note, silent aspiration cannot be ruled out at bedside. Spoke with Sandy's family regarding results of swallow evaluation at bedside and demonstrated her reaction to any oral intake. Family agreed oral intake not meeting nutritional needs at this time.
[2021-07-15] MEDS: LACTATED RINGERS 1,000 ML 75 ML IV CONT (17:24)
[2021-07-15] MEDS: SIMVASTATIN 20 MG TABLET PO (20:47)
--- NOTE | 2021-07-15 20:55 | PC.NURSE ---
Pt pills were given crushed in apple sauce at bed time. Pt would not swallow the medication and spitted it all out.
[2021-07-16] VITALS (10 sets, daily range): BP systolic 114–190; BP diastolic 76–95; PULSE 80–109; RESP 16–20; TEMP 35.9–36.6; O2SAT 94–98
[2021-07-16] MEDS: hydrALAZINE HCL 20 MG/ML VIAL 10 MG IV PUSH ×2 (04:54→20:08)
[2021-07-16 05:36] LABS: Basophils Percent Auto 0.1 % (0.2-1.2); Eosinophils Percent Auto 0.3 % (0-4.4); Hematocrit 35.5 % (37.0-47.0); Hemoglobin 11.7 g/dL (12.0-15.0); Immature Granulocyte Absolute 0.06 K/mm3 (0.00-0.031); Immature Granulocyte Percent A 0.9 % (0-0.5); Lymphocytes Percent Auto 4.5 % (18.3-44.2); Mean Corpuscular Hemoglobin 26.5 pg (26-34); Mean Corpuscular Volume 80.3 fl (80-100); Mean Platelet Volume 9.5 fl (7.4-10.4); Monocytes Absolute Auto 0.8 K/mm3 (0.1-0.6); Monocytes Percent Auto 11.9 % (2.6-8.5); Neutrophils Absolute Auto 5.5 K/mm3 (1.3-6.7); Neutrophils Percent Auto 82.3 % (45.5-73.1); Platelet Count Result 279 k/mm3 (150-375); Red Blood Count 4.42 M/mm3 (4.2-5.4); Red Cell Distribution Width 13.6 % (11.5-14.5); White Blood Count 6.7 K/mm3 (4.5-10.0)
[2021-07-16 05:45] LABS: Anion Gap 15 mmol/L (8-16); Blood Urea Nitrogen 19 mg/dL (7-17); Calcium 9.4 mg/dL (8.4-10.2); Carbon Dioxide 17 mmol/L (22-30); Chloride 100 mmol/L (98-107); Estimated CRCL calculation 41 ml/min; Estimated Glomerular Filt Rate > 60; Glucose 71 mg/dL (65-110); Potassium 3.8 mmol/L (3.4-5.0); Sodium 132 mmol/L (137-145)
[2021-07-16 06:46] LABS: Vancomycin Trough < 5.0 ug/mL (10.0-20.0)
[2021-07-16] MEDS: busPIRone HCL 5 MG TABLET PO (08:00)
[2021-07-16] MEDS: CHOLECALCIFEROL 1,000 UNITS TABLET 1000 UNITS PO (08:00)
[2021-07-16] MEDS: NITROGLYCERIN 0.4 MG/HR PATCH 1 PATCH TOPICAL (08:00)
[2021-07-16] MEDS: METOPROLOL TARTRATE 25 MG TABLET PO (08:00)
[2021-07-16] MEDS: PANTOPRAZOLE 40 MG TABLET PO (08:00)
[2021-07-16] MEDS: amLODIPine BESYLATE 5 MG TABLET 10 MG PO (08:01)
[2021-07-16] MEDS: ENOXAPARIN 40 MG/0.4 ML SYRINGE SUB-Q (08:01)
--- NOTE | 2021-07-16 09:08 | PCOTNOTE ---
Attempted to see pt. for occupational therapy evaluation, pt. is disoriented, unable to follow commands, and displays pain with touch. Spoke with Dr. Devine, hospitalist, who agreed to HOLD pt. for therapy today, is following up with family re: plans for continuation of care. Will follow.
--- NOTE | 2021-07-16 09:16 | PCNFU ---
Nutrition Follow-Up Complete: Inadequate energy intake related to refusal of food as evidenced by pt refusing food and liquids via po. Goal: Meet nutritional needs Pt current nutrition is pureed. Pt was evaluated by speech, no swallow issues noted from bedside eval but pt is refusing food via PO. Nutrition recommendation: Encourage po intake of foods or consider alternative means of nutrition if necessary. Last recorded weight is 34.2 kg - down from 41kg at admission. Bowel Motility: +BM 07/15 Labs Reviewed:Hgb:11.7, HCT:35.5, NA:132, BUN:19, Cr:0.5 Meds Noted: Lovenox, mag ox, protonix Skin: WNL Additional Notes: Pt is not consuming food or fluids. Not coherent enough. Family not present at this time. Dr. Devine to have a discussion with how to proceed further. May need to consider tube feedings if po intake is not possible to meet needs. Recommendation is for Jevity 1.2 @ 55ml/hr goal rate to provide 1452kcals per day over 22 hrs. Monitor diet order, intake and tolerance, wt, labs. Follow up in 3 days.
--- NOTE | 2021-07-16 12:29 | PM.IMPN ---
Progress Note: A&P Assessment and Plan (1) Nausea & vomiting: Code(s): R11.2 - Nausea with vomiting, unspecified Status: Acute Assessment and Plan: Sudden onset. Improved this morning after treatment in the ED. No obstruction on KUB. UDS negative. May have gastroenteritis. SBP in 200s at presentation. May be due to urinary tract infection. Appears to have resolved. -Continue treatment for UTI (2) Metabolic acidosis: Code(s): E87.2 - Acidosis Status: Acute Assessment and Plan: Likely secondary to the vomiting. Will start IVF as patient is not eating or drinking. -LR at 75cc/hr timeout time 0300 (3) Altered mental status: Code(s): R41.82 - Altered mental status, unspecified Status: Acute Assessment and Plan: New since presentation to hospital. May be related to decreasing BP too rapidly as patient SBP in 200s in ED and SBP now in the 110s. Also has UTI, which usually causes confusion per daughter and per daughter patient has not slept since Thursday. CT head w/ no acute intracranial processes. BMP largely normal except hyponatremia, which is chronic. LFTs and ammonia normal. Lactate normal. Neurology consulted. TSH elevated but free t4 normal. Improved yesterday but seem much more confused today. Likely due to the unfamiliar setting. -Appreciate Neurology recommendations -Continue treatment for UTI -MRI brain ordered Called and discussed the patient with daughter, Daniela Tracey, who says the patient was completely independent other than needing help to move. 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 Daughter is concerned her mother had a stroke. Daughter mentions that the family would like to proceed with tube feeds if the patient goes longer than a few days. (4) UTI (urinary tract infection): Qualifiers: Urinary tract infection type: site unspecified Hematuria presence: without hematuria Qualified Code(s): N39.0 - Urinary tract infection, site not specified Code(s): N39.0 - Urinary tract infection, site not specified Status: Acute Assessment and Plan: UCX with e. coli pansensitive. -Continue cefepime for now due to confusion as patient will not take oral -Will de-escalate once improved mental status (5) Uncontrolled hypertension: Code(s): I10 - Essential (primary) hypertension Status: Acute Assessment and Plan: Improved with SBP 150s. Has been more elevated, which may be due to some agitation with her AMS but was previously SBP in 150s. Due to patient mental status will decrease amlodipine 10 back to 5 to see if there is an improvement in patient mental status. -Continue metoprolol -Decrease amlodipine (6) Anemia, unspecified: Code(s): D64.9 - Anemia, unspecified Status: Acute Assessment and Plan: Microcytic. Chronic and appears to have improved compared to previous labs. Normal b12 and folate. Anemia of chronic disease. (7) Coronary artery disease involving [place] coronary artery of [place] heart: Code(s): I25.10 - Atherosclerotic heart disease of [place] coronary artery without angina pectoris Status: Acute Assessment and Plan: On BB and ASA. (8) Generalized anxiety disorder: Code(s): F41.1 - Generalized anxiety disorder Status: Acute Assessment and Plan: Continue home buspar. (9) Hyperlipidemia, unspecified: Qualifiers: Hyperlipidemia type: unspecified Qualified Code(s): E78.5 - Hyperlipidemia, unspecified Code(s): E78.5 - Hyperlipidemia, unspecified Status: Acute Assessment and Plan: Continue statin. (10) Hypothyroidism, unspecified: Qualifiers: Hypothyroidism type: acquired Qualified Code(s): E03.9 - Hypothyroidism, unspecified Code(s): E03.9 - Hypothyroidism, unspecified Status: Chronic Assessment and Plan: Elevated TSH but normal free
[2021-07-16] MEDS: DEXTROSE 5%/0.9% SOD CHL 1,000 ML 75 ML IV CONT (18:33)
[2021-07-16] MEDS: SIMVASTATIN 20 MG TABLET PO (21:19)
[2021-07-17] VITALS (10 sets, daily range): BP systolic 140–198; BP diastolic 69–84; PULSE 76–108; RESP 16–22; TEMP 36.1–36.6; O2SAT 94–99
[2021-07-17 03:42] LABS: Glucose Point of Care 207 mg/dl (65-105)
[2021-07-17 08:15] LABS: Basophils Percent Auto 0.2 % (0.2-1.2); Hematocrit 36.5 % (37.0-47.0); Immature Granulocyte Absolute 0.03 K/mm3 (0.00-0.031); Immature Granulocyte Percent A 0.5 % (0-0.5); Lymphocytes Absolute Auto 0.55 K/mm3 (0.9-3.2); Lymphocytes Percent Auto 9.9 % (18.3-44.2); Mean Corpuscular HGB Conc 32.9 g/dl (32-36); Mean Corpuscular Hemoglobin 26.7 pg (26-34); Mean Corpuscular Volume 81.1 fl (80-100); Mean Platelet Volume 9.3 fl (7.4-10.4); Monocytes Percent Auto 18.5 % (2.6-8.5); Neutrophils Percent Auto 70.9 % (45.5-73.1); Platelet Count Result 262 k/mm3 (150-375); Red Cell Distribution Width 13.8 % (11.5-14.5); White Blood Count 5.6 K/mm3 (4.5-10.0)
[2021-07-17] MEDS: DEXTROSE 5%/0.9% SOD CHL 1,000 ML 75 ML IV CONT (08:17)
[2021-07-17] MEDS: ENOXAPARIN 40 MG/0.4 ML SYRINGE SUB-Q (08:21)
[2021-07-17] MEDS: NITROGLYCERIN 0.4 MG/HR PATCH 1 PATCH TOPICAL (08:22)
[2021-07-17 08:40] LABS: Anion Gap 10 mmol/L (8-16); Blood Urea Nitrogen 11 mg/dL (7-17); Carbon Dioxide 25 mmol/L (22-30); Chloride 99 mmol/L (98-107); Estimated CRCL calculation 51 ml/min; Estimated Glomerular Filt Rate > 60; Glucose 186 mg/dL (65-110); Potassium 2.8 mmol/L (3.4-5.0); Sodium 134 mmol/L (137-145)
[2021-07-17] MEDS: POTASSIUM CHLORIDE INJ 40 MEQ in SODIUM CHLORIDE 0.9% IV 500 ML 130 MEQ IVPB ×2 (10:02→20:53)
--- NOTE | 2021-07-17 11:23 | PCOTNOTE ---
Per nursing, hospitalist, Sindy Gomes stated to HOLD OT/PT evaluations for today due to pt. condition and confusion. Will follow.
--- NOTE | 2021-07-17 12:09 | PCPTNOTE ---
Per nursing, hospitalist, Sindy Gomes stated to HOLD PT evaluations for today due to pt. condition and confusion. Will follow.
[2021-07-17] MEDS: hydrALAZINE HCL 20 MG/ML VIAL 10 MG IV PUSH (15:51)
--- NOTE | 2021-07-17 17:22 | PM.IMPN ---
Progress Note: A&P Assessment and Plan (1) Metabolic acidosis: Code(s): E87.2 - Acidosis Status: Acute (2) Encephalopathy: Code(s): G93.40 - Encephalopathy, unspecified Status: Acute (3) Altered mental status: Code(s): R41.82 - Altered mental status, unspecified Status: Acute (4) History of aortic valve replacement with bioprosthetic valve: Code(s): Z95.3 - Presence of xenogenic heart valve Status: Acute (5) Uncontrolled hypertension: Code(s): I10 - Essential (primary) hypertension Status: Acute (6) Troponin level elevated: Code(s): R77.8 - Other specified abnormalities of plasma proteins Status: Acute (7) Nausea & vomiting: Code(s): R11.2 - Nausea with vomiting, unspecified Status: Acute (8) Headache: Code(s): R51.9 - Headache, unspecified Status: Acute (9) Hypertension: Code(s): I10 - Essential (primary) hypertension Status: Acute (10) Anxiety: Code(s): F41.9 - Anxiety disorder, unspecified Status: Acute (11) Acute hypokalemia: Code(s): E87.6 - Hypokalemia Status: Acute (12) Dysphagia: Code(s): R13.10 - Dysphagia, unspecified Status: Acute (13) UTI (urinary tract infection): Qualifiers: Urinary tract infection type: site unspecified Hematuria presence: without hematuria Qualified Code(s): N39.0 - Urinary tract infection, site not specified Code(s): N39.0 - Urinary tract infection, site not specified Status: Acute (14) Hyperlipidemia, unspecified: Qualifiers: Hyperlipidemia type: unspecified Qualified Code(s): E78.5 - Hyperlipidemia, unspecified Code(s): E78.5 - Hyperlipidemia, unspecified Status: Acute (15) Altered level of consciousness: Code(s): R40.4 - Transient alteration of awareness Status: Acute Plan 07/17/21 Patient with reduced level of consciousness. I have called to her daughter. Daughter states the patient had a 1 week history of severe headache. They called to the primary care physician who did a telehealth visit and noted the patient's blood pressure to be elevated. PCP started the patient on blood pressure medication. Headaches did not resolve nor improve and patient came to the hospital for further care. After hospitalization patient has become nearly obtunded nonverbal lethargic unable to take PO safely. Although this could be metabolic encephalopathy secondary to E coli UTI, patient has been on appropriate antibiotic therapy for 5 days without improvement. Encephalopathy could also be associated with hypertension however even when blood pressure is improved mental status does not. Will speak with Dr. Cardona to evaluate for EEG and LP. -cont abx -cont NPO -cont IV BP coverage q 6hr -cont supportive care -spoke with Neurology to confirm plan for EEG and LP -Spoke with POA who agrees to LP -Lovenox VTEP is discontinued -Clopidogrel has not been administered since admission -c/s IR for LP Time Spent With Patient Time with patient: Greater than 35 minutes Subjective Date/time seen: 07/17/21 17:22 Patient with reduced level of consciousness. I have called to her daughter. Daughter states the patient had a 1-2 week history of severe headache. They called to the primary care physician who did a telehealth visit and noted the patient's blood pressure to be elevated. PCP started the patient on blood pressure medication. Headaches did not resolve or improve and patient came to the hospital for further care. After hospitalization patient has become nearly obtunded nonverbal. Although this could be metabolic encephalopathy secondary to E coli UTI, patient has been on appropriate antibiotic therapy for 5 days without improvement. Encephalopathy could also be associated with hypertension however even when blood pressure is improved mental status does not. Will speak with Dr. Johnson
[2021-07-18] VITALS (20 sets, daily range): BP systolic 135–206; BP diastolic 67–114; PULSE 95–168; RESP 12–28; TEMP 36.3–36.6; O2SAT 68–100
[2021-07-18] MEDS: DEXTROSE 5%/0.9% SOD CHL 1,000 ML 75 ML IV CONT (03:29)
[2021-07-18] MEDS: ENALAPRILAT 1.25 MG/ML VIAL IV PUSH ×2 (05:21→11:57)
[2021-07-18 06:01] LABS: Basophils Percent Auto 0.2 % (0.2-1.2); Eosinophils Percent Auto 0.2 % (0-4.4); Hemoglobin 12.4 g/dL (12.0-15.0); Immature Granulocyte Absolute 0.02 K/mm3 (0.00-0.031); Immature Granulocyte Percent A 0.3 % (0-0.5); Lymphocytes Absolute Auto 0.49 K/mm3 (0.9-3.2); Mean Corpuscular Hemoglobin 26.2 pg (26-34); Mean Corpuscular Volume 84.6 fl (80-100); Mean Platelet Volume 9.7 fl (7.4-10.4); Monocytes Absolute Auto 0.9 K/mm3 (0.1-0.6); Monocytes Percent Auto 14.5 % (2.6-8.5); Neutrophils Absolute Auto 4.7 K/mm3 (1.3-6.7); Neutrophils Percent Auto 76.8 % (45.5-73.1); Platelet Count Result 247 k/mm3 (150-375); Red Blood Count 4.73 M/mm3 (4.2-5.4); White Blood Count 6.1 K/mm3 (4.5-10.0)
[2021-07-18] MEDS: hydrALAZINE HCL 20 MG/ML VIAL 10 MG IV PUSH (06:29)
[2021-07-18 06:55] LABS: Alanine Aminotransferase 16 U/L (6-35); Albumin Level 4.1 g/dL (3.5-5.1); Alkaline Phosphatase 87 U/L (38-126); Anion Gap 6 mmol/L (8-16); Aspartate Amino Transferase 27 U/L (14-36); Bilirubin,Total 0.3 mg/dL (0.2-1.3); Blood Urea Nitrogen 5 mg/dL (7-17); CRP 0.6 mg/dL (<1.0); Calcium 8.9 mg/dL (8.4-10.2); Carbon Dioxide 26 mmol/L (22-30); Chloride 101 mmol/L (98-107); Creatine Kinase 91 U/L (30-135); Estimated CRCL calculation 63 ml/min; Estimated Glomerular Filt Rate > 60; Glucose 140 mg/dL (65-110); Magnesium 1.8 mg/dL (1.6-2.3); Phosphorus 1.7 mg/dL (2.5-4.5); Potassium 3.3 mmol/L (3.4-5.0); Sodium 133 mmol/L (137-145)
[2021-07-18] MEDS: NITROGLYCERIN 0.4 MG/HR PATCH 1 PATCH TOPICAL (08:15)
--- NOTE | 2021-07-18 09:15 | WPDNEUROLOGY ---
Neurology EEG Report General Information Date of Study: 07/18/21 TEST EEG DIAGNOSIS change in mental status CONDITION OF RECORDING awake but patient eyes and mouth were opened and constantly moving and multiple facial muscles artifacts were noted throughout the tracing EEG NUMBER background rhythm consists of medium to high voltage 2 to 3 hertz per 2nd delta activity admixed and superimposed by multiple movement artifacts and low-voltage beta activity. Hyperventilation not done. Photic stimulation not done. Non paroxysmal. Nonfocal. Nonlateralizing. CLINICAL HISTORY Abnormal record due to the presence of bihemispheric slow activity these abnormalities are consistent with diagnosis of organic or metabolic encephalopathy or else neuro degenerative process .there is no evidence of paroxysmal discharge throughout the tracing clinical correlation recommended.
--- NOTE | 2021-07-18 09:20 | PCOTNOTE ---
Attempted OT evaluation, Patient is awake but unable to respond to questions, unable to follow any one step directions including moving arms, squeezing hand. Unable to complete OT evaluation at this time due to patients unresponsiveness. RN aware, will follow.
--- NOTE | 2021-07-18 10:28 | PCPTNOTE ---
Attempted PT evaluation, PER OT, Patient is awake but unable to respond to questions, unable to follow any one step directions including moving arms, squeezing hand. Unable to complete OT evaluation at this time due to patients unresponsiveness. RN aware, will follow.
--- NOTE | 2021-07-18 11:54 | ECG_ITS ---
Measurements Intervals [place] Rate: 123 P: 81 UT: 116 QRS: 61 QRSD: 97 T: 241 QT: 318 QTc: 456 Interpretive Statements SINUS TACHYCARDIA WITH SHORT UT INTERVAL LEFT VENTRICULAR HYPERTROPHY AND ST-T CHANGE CONSIDER MYOCARDIAL ISCHEMIA [VOLTAGE CRITERIA PLUS ST/T ABNORMALITY] ABNORMAL ECG COMPARED TO ECG 07/13/2021 13:08:21 NO SIGNIFICANT CHANGES Electronically Signed On 07-18-2021 17:52:43 CDT by Willi Fitzgerald M.D.
[2021-07-18 12:06] LABS: Glucose CSF 83 mg/dL (40-70); Total Protein CSF 50 mg/dL (12-60)
[2021-07-18 12:09] LABS: Base Excess ABG 1.3 mEq/l (+/-2.0); Carboxyhemoglobin 0.3 % THb (0-2.0); Device NON-REBREATHER MASK; Fractional Inspired Oxygen 100 %; HCO3 ABG 25.2 mEq/l (22.0-26.0); Methemoglobin ABG 0.3 %THb (0-1.5); Modified Allen's Test Pass; Oxygen Content ABG 18.3 %vol (16.0-22.0); Oxygen Saturation ABG 96.5 % (95.0-100.0); Oxyhemoglobin 95.5 % THb (90.0-100.0); PCO2 ABG 37.7 mmHg (35.0-45.0); PO2 ABG 82.3 mmHg (80.0-100.0); PO2 FiO2 Ratio Arterial Blood 0.82 %; Reduced Hemoglobin 3.9 %THb (0-5.0); Site Drawn RIGHT RADIAL; Total Hemoglobin 13.6 g/dL (12.0-18.0); pH ABG 7.443 (7.350-7.450)
[2021-07-18] MEDS: FUROSEMIDE INJ 40 MG/4 ML VIAL 20 MG IV PUSH (12:12)
[2021-07-18 12:20] LABS: Lactic Acid Reflex 2.3 mmol/L (0.7-2.0)
[2021-07-18] MEDS: METOPROLOL TARTRATE INJ 5 MG/5 ML VIAL 2.5 MG IV PUSH ×3 (12:20→20:05)
--- NOTE | 2021-07-18 12:52 | PM.IMPN ---
Progress Note: A&P Assessment and Plan (1) Metabolic acidosis: Code(s): E87.2 - Acidosis Status: Acute (2) Encephalopathy: Code(s): G93.40 - Encephalopathy, unspecified Status: Acute (3) Altered mental status: Code(s): R41.82 - Altered mental status, unspecified Status: Acute (4) History of aortic valve replacement with bioprosthetic valve: Code(s): Z95.3 - Presence of xenogenic heart valve Status: Acute (5) Uncontrolled hypertension: Code(s): I10 - Essential (primary) hypertension Status: Acute (6) Troponin level elevated: Code(s): R77.8 - Other specified abnormalities of plasma proteins Status: Acute (7) Nausea & vomiting: Code(s): R11.2 - Nausea with vomiting, unspecified Status: Acute (8) Headache: Code(s): R51.9 - Headache, unspecified Status: Acute (9) Hypertension: Code(s): I10 - Essential (primary) hypertension Status: Acute (10) Anxiety: Code(s): F41.9 - Anxiety disorder, unspecified Status: Acute (11) Acute hypokalemia: Code(s): E87.6 - Hypokalemia Status: Acute (12) Dysphagia: Code(s): R13.10 - Dysphagia, unspecified Status: Acute (13) UTI (urinary tract infection): Qualifiers: Hematuria presence: without hematuria Urinary tract infection type: site unspecified Qualified Code(s): N39.0 - Urinary tract infection, site not specified Code(s): N39.0 - Urinary tract infection, site not specified Status: Acute (14) Hyperlipidemia, unspecified: Qualifiers: Hyperlipidemia type: unspecified Qualified Code(s): E78.5 - Hyperlipidemia, unspecified Code(s): E78.5 - Hyperlipidemia, unspecified Status: Acute (15) Altered level of consciousness: Code(s): R40.4 - Transient alteration of awareness Status: Acute (16) Acute hypoxemic respiratory failure: Code(s): J96.01 - Acute respiratory failure with hypoxia Status: Acute Plan 07/17/21 Patient with reduced level of consciousness. I have called to her daughter. Daughter states the patient had a 1 week history of severe headache. They called to the primary care physician who did a telehealth visit and noted the patient's blood pressure to be elevated. PCP started the patient on blood pressure medication. Headaches did not resolve nor improve and patient came to the hospital for further care. After hospitalization patient has become nearly obtunded nonverbal lethargic unable to take PO safely. Although this could be metabolic encephalopathy secondary to E coli UTI, patient has been on appropriate antibiotic therapy for 5 days without improvement. Encephalopathy could also be associated with hypertension however even when blood pressure is improved mental status does not. Will speak with Dr. Cardona to evaluate for EEG and LP. -cont abx -cont NPO -cont IV BP coverage q 6hr -cont supportive care -spoke with Neurology to confirm plan for EEG and LP -Spoke with POA who agrees to LP -Lovenox VTEP is discontinued -Clopidogrel has not been administered since admission -c/s IR for LP 07/18/21 Rapid response Team call today for acute hypoxemic respiratory failure status post LP with IR Patient is placed on non-rebreather mask 15 L with improvement in her oxygenation ABGs without significant findings other than need for oxygen supplementation and tachycardia improved with low-dose metoprolol administration. Patient has had ongoing intermittent episodes of hypertension she is responding to enalaprilat as needed. Now the patient is more alert I will consult speech therapy to evaluate her swallowing ability hopefully tomorrow she will have ongoing improvement cognition and be able to follow commands. CTA PE protocol pending Transfer to step-down for respiratory failure requiring 15 L non-rebreather continue IV antibiotics for UTI Family will be marii
--- NOTE | 2021-07-18 13:01 | PC.NURSE ---
rapid response called around 1140. pt had just returned from x ray lumbar puncture. pt was 94% on room air prior to procedure and other vitals were stable other than heart rate slightly tachy in the 110's. RN called x ray when RN noticed pts heart rate in the 160 - 180's on the tele monitor. RN down in x ray said they placed pt on 6 liters of O2 during the procedure and that pt's heart rate became tachy during the procedure. As soon as pt returned to floor, RN went into the room and took a set of vitals. O2 was sitting at 68% on 6 liters of O2 with a heart rate in the 160's. A rapid response was then called. Pt's family was notified of the change in condition by hospitalist Dr. Gomes.
[2021-07-18 13:05] LABS: Troponin I 0.037 ng/mL (0.000-0.034)
[2021-07-18 14:10] LABS: Appearance CSF Clear (Clear); CSF source CSF; Color CSF Colorless (Colorless); Neutrophils CSF 2 % (0-6); Nucleated Cell CSF 7 /uL (0-5); Red Blood Cell CSF 0 (0-2)
[2021-07-18 14:11] LABS: Lymphocytes CSF 94 % (40-80); Monocytes CSF 4 % (15-45)
[2021-07-18] MEDS: POTASSIUM CHLORIDE INJ 40 MEQ in SODIUM CHLORIDE 0.9% IV 500 ML 130 MEQ IVPB (14:25)
[2021-07-18 15:08] LABS: Reflex Lactic Acid Yes or No Add Lactic
[2021-07-18 16:19] LABS: Lactic Acid 1.5 mmol/L (0.7-2.0)
[2021-07-19] VITALS (13 sets, daily range): BP systolic 147–165; BP diastolic 61–84; PULSE 83–108; RESP 14–20; TEMP 36.6–37.2; O2SAT 90–95
[2021-07-19] MEDS: DEXTROSE 5%/0.9% SOD CHL 1,000 ML 75 ML IV CONT (02:19)
[2021-07-19 05:34] LABS: Basophils Percent Auto 0.1 % (0.2-1.2); Hematocrit 40.4 % (37.0-47.0); Immature Granulocyte Absolute 0.08 K/mm3 (0.00-0.031); Immature Granulocyte Percent A 0.6 % (0-0.5); Lymphocytes Absolute Auto 0.61 K/mm3 (0.9-3.2); Lymphocytes Percent Auto 4.9 % (18.3-44.2); Mean Corpuscular HGB Conc 32.2 g/dl (32-36); Mean Corpuscular Hemoglobin 26.3 pg (26-34); Mean Corpuscular Volume 81.8 fl (80-100); Mean Platelet Volume 9.6 fl (7.4-10.4); Monocytes Absolute Auto 1.2 K/mm3 (0.1-0.6); Monocytes Percent Auto 9.6 % (2.6-8.5); Neutrophils Absolute Auto 10.7 K/mm3 (1.3-6.7); Neutrophils Percent Auto 84.8 % (45.5-73.1); Platelet Count Result 236 k/mm3 (150-375); Red Blood Count 4.94 M/mm3 (4.2-5.4); Red Cell Distribution Width 14.2 % (11.5-14.5); White Blood Count 12.6 K/mm3 (4.5-10.0)
[2021-07-19 05:43] LABS: Lactic Acid Reflex 1.6 mmol/L (0.7-2.0)
[2021-07-19 05:47] LABS: Alanine Aminotransferase 17 U/L (6-35); Alkaline Phosphatase 77 U/L (38-126); Anion Gap 6 mmol/L (8-16); Aspartate Amino Transferase 26 U/L (14-36); Bilirubin,Total 0.3 mg/dL (0.2-1.3); Blood Urea Nitrogen 11 mg/dL (7-17); CRP 5.6 mg/dL (<1.0); Calcium 9.1 mg/dL (8.4-10.2); Carbon Dioxide 25 mmol/L (22-30); Chloride 106 mmol/L (98-107); Estimated CRCL calculation 42 ml/min; Estimated Glomerular Filt Rate > 60; Glucose 163 mg/dL (65-110); Magnesium 1.8 mg/dL (1.6-2.3); Phosphorus 2.3 mg/dL (2.5-4.5); Potassium 3.5 mmol/L (3.4-5.0); Sodium 137 mmol/L (137-145)
[2021-07-19 07:52] LABS: Burr Cells 1+ (NORMAL); Platelet Estimate Adequate (Adequate)
[2021-07-19] MEDS: METOPROLOL TARTRATE INJ 5 MG/5 ML VIAL 2.5 MG IV PUSH ×4 (08:36→21:37)
[2021-07-19] MEDS: NITROGLYCERIN 0.4 MG/HR PATCH 1 PATCH TOPICAL (08:36)
--- NOTE | 2021-07-19 13:25 | PCSTNOTE ---
Modified Barium Swallow study was attempted with patient in the room however patient would open eyes but not respond to one-step verbal directions including movements with mouth. MBS was not completed this date as patient is not able to participate safely. It is expected she would have failed by penetration or aspiration. Placed on hold today and will be attempted again tomorrow.
--- NOTE | 2021-07-19 13:44 | PCNFU ---
Nutrition Follow-Up Complete: Swallowing/chewing difficulties related to dysphagia as evidenced by family report and H&P. Goal: Initiate diet order with po intake Patient has not met current goal. Pt current nutrition is NPO. Last recorded weight is 35.9 kg, down from 41 kg on admit. Bowel Motility:+BM reported 07/17 Labs Reviewed:PO4 2.3, Cr 0.5,Glu 163 Meds Noted:Lopressor, Maxipime. Skin: WNL Additional Notes: Patient had MBS today-recommending non oral feedings. Tube feeding recommendations: Jevity 1.5 at 20 ml/hr advancing by 10 ml q 4 hours to goal rate of 45 ml/hr over 22 hours. Goal rate will provide patient with 1485 kcals/63 gms protein/752 ml water. Free water flush 30 ml q 4 hours. Monitoring: monitoring every Thursday and Thursday.
--- NOTE | 2021-07-19 15:29 | P.PNIM_ITS ---
Progress Note: A&P Assessment and Plan (1) Metabolic acidosis: Code(s): E87.2 - Acidosis Status: Acute (2) Encephalopathy: Code(s): G93.40 - Encephalopathy, unspecified Status: Acute (3) Altered mental status: Code(s): R41.82 - Altered mental status, unspecified Status: Acute (4) History of aortic valve replacement with bioprosthetic valve: Code(s): Z95.3 - Presence of xenogenic heart valve Status: Acute (5) Uncontrolled hypertension: Code(s): I10 - Essential (primary) hypertension Status: Acute (6) Troponin level elevated: Code(s): R77.8 - Other specified abnormalities of plasma proteins Status: Acute (7) Nausea & vomiting: Code(s): R11.2 - Nausea with vomiting, unspecified Status: Acute (8) Headache: Code(s): R51.9 - Headache, unspecified Status: Acute (9) Hypertension: Code(s): I10 - Essential (primary) hypertension Status: Acute (10) Anxiety: Code(s): F41.9 - Anxiety disorder, unspecified Status: Acute (11) Acute hypokalemia: Code(s): E87.6 - Hypokalemia Status: Acute (12) Dysphagia: Code(s): R13.10 - Dysphagia, unspecified Status: Acute (13) UTI (urinary tract infection): Qualifiers: Hematuria presence: without hematuria Urinary tract infection type: site unspecified Qualified Code(s): N39.0 - Urinary tract infection, site not specified Code(s): N39.0 - Urinary tract infection, site not specified Status: Acute (14) Hyperlipidemia, unspecified: Qualifiers: Hyperlipidemia type: unspecified Qualified Code(s): E78.5 - Hyperlipidemia, unspecified Code(s): E78.5 - Hyperlipidemia, unspecified Status: Acute (15) Altered level of consciousness: Code(s): R40.4 - Transient alteration of awareness Status: Acute (16) Acute hypoxemic respiratory failure: Code(s): J96.01 - Acute respiratory failure with hypoxia Status: Acute Plan 07/17/21 Patient with reduced level of consciousness. I have called to her daughter. Daughter states the patient had a 1 week history of severe headache. They called to the primary care physician who did a telehealth visit and noted the patient's blood pressure to be elevated. PCP started the patient on blood pressure medication. Headaches did not resolve nor improve and patient came to the hospital for further care. After hospitalization patient has become nearly obtunded nonverbal lethargic unable to take PO safely. Although this could be metabolic encephalopathy secondary to E coli UTI, patient has been on appropriate antibiotic therapy for 5 days without improvement. Encephalopathy could also be associated with hypertension however even when blood pressure is improved mental status does not. Will speak with Dr. Cardona to evaluate for EEG and LP. -cont abx -cont NPO -cont IV BP coverage q 6hr -cont supportive care -spoke with Neurology to confirm plan for EEG and LP -Spoke with POA who agrees to LP -Lovenox VTEP is discontinued -Clopidogrel has not been administered since admission -c/s IR for LP 07/18/21 Rapid response Team call today for acute hypoxemic respiratory failure status post LP with IR Patient is placed on non-rebreather mask 15 L with improvement in her oxygenation ABGs without significant findings other than need for oxygen supplementation and tachycardia improved with low-dose metoprolol administration. Patient has had ongoing intermittent episodes of h
[2021-07-20] VITALS (12 sets, daily range): BP systolic 142–164; BP diastolic 57–86; PULSE 85–115; RESP 13–20; TEMP 36–36.8; O2SAT 92–95
[2021-07-20] MEDS: NITROGLYCERIN 0.4 MG/HR PATCH 1 PATCH TOPICAL (08:21)
[2021-07-20] MEDS: METOPROLOL TARTRATE INJ 5 MG/5 ML VIAL 2.5 MG IV PUSH ×4 (08:21→20:14)
[2021-07-20] MEDS: PANTOPRAZOLE SODIUM IV 40 MG VIAL IV PUSH (10:20)
[2021-07-20] MEDS: LEVOTHYROXINE SODIUM INJ 100 MCG/5 ML VIAL 12.5 MCG IV PUSH (10:20)
[2021-07-20 12:02] LABS: Herpes Simplex Type 1 DNA PCR Not Detected (Not Detected); Herpes Simplex Type 2 DNA PCR Not Detected (Not Detected)
[2021-07-20] MEDS: traMADol HCL (*CRX) 50 MG TABLET PO (14:02)
[2021-07-20 15:23] LABS: VDRL Quantitative CSF Nonreactive (Nonreactive)
[2021-07-20 19:48] LABS: Cryptococcus Antigen Not Detected (Not Detected); Cryptococcus Specimen Source CSF
[2021-07-21] VITALS (9 sets, daily range): BP systolic 152–168; BP diastolic 56–73; PULSE 96–125; RESP 12–16; TEMP 36.3–37.4; O2SAT 96–97
[2021-07-21 02:49] LABS: Epstein Barr Virus DNA PCR Not Detected (Not Detected); Source Epstein Barr Virus CSF
[2021-07-21] MEDS: LEVOTHYROXINE SODIUM INJ 100 MCG/5 ML VIAL 12.5 MCG IV PUSH (05:43)
[2021-07-21 06:15] LABS: Basophils Percent Auto 0.1 % (0.2-1.2); Hemoglobin 10.3 g/dL (12.0-15.0); Lymphocytes Absolute Auto 0.34 K/mm3 (0.9-3.2); Lymphocytes Percent Auto 3.3 % (18.3-44.2); Mean Corpuscular HGB Conc 31.2 g/dl (32-36); Mean Corpuscular Hemoglobin 26.1 pg (26-34); Mean Corpuscular Volume 83.5 fl (80-100); Mean Platelet Volume 9.6 fl (7.4-10.4); Monocytes Absolute Auto 0.3 K/mm3 (0.1-0.6); Monocytes Percent Auto 2.4 % (2.6-8.5); Neutrophils Absolute Auto 9.7 K/mm3 (1.3-6.7); Neutrophils Percent Auto 93.2 % (45.5-73.1); Platelet Count Result 155 k/mm3 (150-375); Red Blood Count 3.95 M/mm3 (4.2-5.4); Red Cell Distribution Width 14.1 % (11.5-14.5); White Blood Count 10.4 K/mm3 (4.5-10.0)
[2021-07-21 06:38] LABS: Alanine Aminotransferase 17 U/L (6-35); Albumin Level 3.1 g/dL (3.5-5.1); Alkaline Phosphatase 71 U/L (38-126); Anion Gap 3 mmol/L (8-16); Aspartate Amino Transferase 23 U/L (14-36); Bilirubin,Total 0.2 mg/dL (0.2-1.3); Blood Urea Nitrogen 15 mg/dL (7-17); Calcium 8.8 mg/dL (8.4-10.2); Carbon Dioxide 30 mmol/L (22-30); Chloride 110 mmol/L (98-107); Estimated CRCL calculation 43 ml/min; Estimated Glomerular Filt Rate > 60; Glucose 173 mg/dL (65-110); Magnesium 1.9 mg/dL (1.6-2.3); Potassium 2.7 mmol/L (3.4-5.0); Sodium 143 mmol/L (137-145)
[2021-07-21] MEDS: ENALAPRILAT 1.25 MG/ML VIAL IV PUSH ×3 (07:15→18:10)
[2021-07-21] MEDS: POTASSIUM CHLORIDE INJ 40 MEQ in SODIUM CHLORIDE 0.9% IV 500 ML 130 MEQ IVPB ×2 (07:19→13:23)
[2021-07-21 07:33] LABS: Anisocytosis 1+ (NORMAL); Hypochromasia 1+ (NORMAL); Ovalocytes 1+ (NORMAL); Poikilocytosis 1+ (NORMAL)
[2021-07-21] MEDS: METOPROLOL TARTRATE INJ 5 MG/5 ML VIAL 2.5 MG IV PUSH ×4 (09:14→20:00)
[2021-07-21] MEDS: NITROGLYCERIN 0.4 MG/HR PATCH 1 PATCH TOPICAL (09:15)
[2021-07-21] MEDS: PANTOPRAZOLE SODIUM IV 40 MG VIAL IV PUSH (09:15)
[2021-07-21] MEDS: POTASSIUM CHLORIDE 20 MEQ PACKET (FOR LIQUID) 40 MEQ FEED TUBE (12:45)
[2021-07-21] MEDS: SCOPOLAMINE 1.5 MG PATCH TRANSDERM (20:55)
[2021-07-22] VITALS (16 sets, daily range): BP systolic 146–194; BP diastolic 44–73; PULSE 90–128; RESP 18–20; TEMP 36.7–36.9; O2SAT 93–98
[2021-07-22] MEDS: hydrALAZINE HCL 20 MG/ML VIAL 10 MG IV PUSH (04:18)
[2021-07-22] MEDS: METOPROLOL TARTRATE INJ 5 MG/5 ML VIAL 2.5 MG IV PUSH ×5 (05:12→20:01)
[2021-07-22] MEDS: LEVOTHYROXINE SODIUM INJ 100 MCG/5 ML VIAL 12.5 MCG IV PUSH (05:30)
[2021-07-22 05:45] LABS: Basophils Percent Auto 0.2 % (0.2-1.2); Eosinophils Percent Auto 0.2 % (0-4.4); Hematocrit 33.2 % (37.0-47.0); Hemoglobin 10.4 g/dL (12.0-15.0); Immature Granulocyte Absolute 0.05 K/mm3 (0.00-0.031); Immature Granulocyte Percent A 0.8 % (0-0.5); Lymphocytes Absolute Auto 0.43 K/mm3 (0.9-3.2); Lymphocytes Percent Auto 6.6 % (18.3-44.2); Mean Corpuscular HGB Conc 31.3 g/dl (32-36); Mean Corpuscular Hemoglobin 26.3 pg (26-34); Mean Corpuscular Volume 83.8 fl (80-100); Mean Platelet Volume 10.4 fl (7.4-10.4); Monocytes Absolute Auto 0.4 K/mm3 (0.1-0.6); Monocytes Percent Auto 6.3 % (2.6-8.5); Neutrophils Absolute Auto 5.6 K/mm3 (1.3-6.7); Neutrophils Percent Auto 85.9 % (45.5-73.1); Platelet Count Result 166 k/mm3 (150-375); Red Blood Count 3.96 M/mm3 (4.2-5.4); Red Cell Distribution Width 14.2 % (11.5-14.5); White Blood Count 6.6 K/mm3 (4.5-10.0)
[2021-07-22 05:57] LABS: Anion Gap 0 mmol/L (8-16); Blood Urea Nitrogen 17 mg/dL (7-17); Calcium 8.9 mg/dL (8.4-10.2); Carbon Dioxide 35 mmol/L (22-30); Chloride 114 mmol/L (98-107); Estimated CRCL calculation 52 ml/min; Estimated Glomerular Filt Rate > 60; Glucose 154 mg/dL (65-110); Potassium 3.3 mmol/L (3.4-5.0); Sodium 149 mmol/L (137-145)
[2021-07-22 07:12] LABS: Anisocytosis 1+ (NORMAL); Hypochromasia 2+ (NORMAL); Poikilocytosis 1+ (NORMAL)
[2021-07-22] MEDS: PANTOPRAZOLE SODIUM IV 40 MG VIAL IV PUSH (08:07)
[2021-07-22] MEDS: NITROGLYCERIN 0.4 MG/HR PATCH 1 PATCH TOPICAL (08:07)
--- NOTE | 2021-07-22 12:11 | PCNFU ---
Nutrition Follow-Up Complete: Swallowing/chewing difficulties related to dysphagia as evidenced by family report and H&P. goal: Initiate diet order with po intake Patient is not meeting goal, we will continue current goal. Pt current nutrition is Jevity 1.5 at 45 ml/hr over 22 hours. Last recorded weight is 37 kg, down from 41 kg on admit. Bowel Motility:+Bm reported 07/21 Labs Reviewed:Glu 154, K 3.3, Cr 0.4,Hct 33.2,Hgb 10.4 Meds Noted:Maxipime, Synthroid, Lopressor, Protonix,Apresoline. Skin: WNL Additional Notes: Patient started on Dobbhoff feedings of Jevity 1.5 at 45 ml/hr. Tube feedings are currently providing 1485 kcals/63 gms protein/752 ml water. MBS ordered today. Agree with diet orders. Monitor every Thursday and Thursday.
[2021-07-22] MEDS: POTASSIUM CHLORIDE INJ 40 MEQ in SODIUM CHLORIDE 0.9% IV 500 ML 130 MEQ IVPB (13:31)
[2021-07-22] MEDS: ENALAPRILAT 1.25 MG/ML VIAL IV PUSH (15:35)
--- NOTE | 2021-07-22 16:33 | PCSTNOTE ---
Order was received for a Modified barium swallow. Was called to pt's room to determine if she could participate in MBS [facility] Upon a trial of ice cream (~1/4 tsp), it was determined pt was not yet appropriate for videofluoroscopy. Pt was unable to formulate contents into a bolus; contents melted and appeared to spill posteriorly. No swallow occurred after approximately 5 minutes of verbal cues. Pt's daughter was present; she stated she feels her mother is improving. It was explained the pt is not ready for a modified barium swallow at this time as severe dysphagia is exhibited. Dr Gomes and pt's RN were notified. Nonoral feeding is recommended at this time.
[2021-07-23] VITALS (17 sets, daily range): BP systolic 114–198; BP diastolic 60–100; PULSE 70–108; RESP 20–139; TEMP 35.9–37.4; O2SAT 92–100
[2021-07-23 05:41] LABS: Basophils Percent Auto 0.1 % (0.2-1.2); Eosinophils Percent Auto 0.4 % (0-4.4); Hematocrit 33.6 % (37.0-47.0); Hemoglobin 10.1 g/dL (12.0-15.0); Immature Granulocyte Absolute 0.07 K/mm3 (0.00-0.031); Immature Granulocyte Percent A 0.9 % (0-0.5); Lymphocytes Absolute Auto 0.54 K/mm3 (0.9-3.2); Lymphocytes Percent Auto 7.2 % (18.3-44.2); Mean Corpuscular HGB Conc 30.1 g/dl (32-36); Mean Corpuscular Volume 86.4 fl (80-100); Mean Platelet Volume 10.1 fl (7.4-10.4); Monocytes Absolute Auto 0.5 K/mm3 (0.1-0.6); Monocytes Percent Auto 6.1 % (2.6-8.5); Neutrophils Absolute Auto 6.4 K/mm3 (1.3-6.7); Neutrophils Percent Auto 85.3 % (45.5-73.1); Platelet Count Result 182 k/mm3 (150-375); Red Blood Count 3.89 M/mm3 (4.2-5.4); Red Cell Distribution Width 14.4 % (11.5-14.5); White Blood Count 7.5 K/mm3 (4.5-10.0)
[2021-07-23 05:53] LABS: Alanine Aminotransferase 106 U/L (6-35); Alkaline Phosphatase 106 U/L (38-126); Anion Gap 3 mmol/L (8-16); Aspartate Amino Transferase 105 U/L (14-36); Bilirubin,Total 0.3 mg/dL (0.2-1.3); Blood Urea Nitrogen 20 mg/dL (7-17); Calcium 8.7 mg/dL (8.4-10.2); Carbon Dioxide 32 mmol/L (22-30); Chloride 115 mmol/L (98-107); Creatine Kinase < 20 U/L (30-135); Estimated CRCL calculation 55 ml/min; Estimated Glomerular Filt Rate > 60; Glucose 180 mg/dL (65-110); Magnesium 2.4 mg/dL (1.6-2.3); Potassium 3.4 mmol/L (3.4-5.0); Sodium 150 mmol/L (137-145)
[2021-07-23 06:16] LABS: Anisocytosis 1+ (NORMAL); Band Neutrophils Percent 7 % (0-6); Eosinophils Absolute Manual 0.07 K/mm3 (0.02-0.5); Eosinophils Percent Manual 1 % (0-4); Hypochromasia 1+ (NORMAL); Lymphocytes Absolute Manual 1.35 K/mm3 (1.1-4.5); Monocytes Absolute Manual 0.22 K/mm3 (0.1-0.90); Monocytes Percent Manual 3 % (3-9); Neutrophils Absolute Manual 5.85 K/mm3 (1.7-7.2); Neutrophils Percent Manual 71 % (46-73); Platelet Estimate Adequate (Adequate); Total Cells Counted 100
[2021-07-23] MEDS: LEVOTHYROXINE SODIUM INJ 100 MCG/5 ML VIAL 12.5 MCG IV PUSH (06:16)
--- NOTE | 2021-07-23 07:07 | WPDGICN ---
Assessment and Plan Assessment and plan (1) Encephalopathy: Code(s): G93.40 - Encephalopathy, unspecified Status: Acute Assessment and Plan: she apparently has been improving a bit each day. It is not clear why she had altered mental status on admission neurology did see her on admission but I do not think that they have reassessed her in the last few days. (2) Uncontrolled hypertension: Code(s): I10 - Essential (primary) hypertension Status: Acute Assessment and Plan: diastolic is 100 this morning, but it has been between the 50s and 70s last several days. (3) Dysphagia: Code(s): R13.10 - Dysphagia, unspecified Status: Acute Assessment and Plan: A chronic problem but now with her encephalopathy her intake has been negligible. Because she has failed swallow evaluation, tube feedings are necessary. A feeding tube is in place. I have held her tube feedings this morning in preparation for possible PEG tube if the family is in agreement with that I just spoke with her daughter and power of deputy attorney general, Jose. I discussed in detail peg tube placement, the fact that if she does have a stricture we may not be able to pass the G-tube. I explained the possible risks such as bleeding or perforation of the esophagus or stomach. Also the possibility of infection. She wishes to proceed. (4) Malnutrition: Code(s): E46 - Unspecified protein-calorie malnutrition Status: Acute Assessment and Plan: she has been gradually losing weight but now the issue is more serious because she has had negligible intake for the past week or so and is unable to swallow, having failed modified barium swallow GI Consult Note Consult date/time: 07/23/21 07:07 HPI: Sandy Myrick is a 81 year old female Who was admitted this time with mental status changes. She was seen by Neurology. It was not felt that she had an acute neurologic event. CT scan showed cerebral cortical atrophy. she has been gradually becoming more alert. She has not been able to swallow and failed swallow evaluation twice. I had seen her for several years and she has a long-standing problem with dysphagia. She is known to have scleroderma and is suspected that she had at least in part a motility issue. She also has had a Schatzki's ring dilated in the past. Which was hospitalized few months ago she told me that she simply did not feel like eating and that it took her a long time to eat. She has refused endoscopy as recently as a few months ago. She has gradually been losing weight although her weight now is about the same as it was during her last hospitalization. She is awake and tells me that she does not have any complaints today but she is not as alert as she has been in the past. Review of Systems Review of Systems: All systems reviewed & are unremarkable except as noted in HPI and below PMFSH Past Medical History Medical History Dysphagia H/O coronary angiogram Hypertension, essential Hypokalemia Hypothyroidism, unspecified Mixed hyperlipidemia Nausea Surgical History Surgical History H/O aortic valve replacement H/O cataract removal with insertion of prosthetic lens H/O esophagogastroduodenoscopy H/O: hysterectomy Hx of colonoscopy with polypectomy Family History Family History Father Hypertension Patient's father is Acute myocardial infarction Sibling Hypertension Mother Cerebrovascular accident Other Family history of bipolar disorder Social History Social History Social History: The patient lives with her . 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 She does not use any alcohol marijuana or illicit drugs. is a durable
[2021-07-23] MEDS: PANTOPRAZOLE SODIUM IV 40 MG VIAL IV PUSH (09:14)
[2021-07-23] MEDS: METOPROLOL TARTRATE INJ 5 MG/5 ML VIAL 2.5 MG IV PUSH ×3 (09:14→20:24)
[2021-07-23] MEDS: NITROGLYCERIN 0.4 MG/HR PATCH 1 PATCH TOPICAL (09:15)
[2021-07-23] MEDS: LACTATED RINGERS 1,000 ML 150 ML IV CONT (10:56)
--- NOTE | 2021-07-23 11:39 | PCNFU ---
Nutrition Follow-Up Complete: Swallowing/chewing difficulties related to dysphagia as evidenced by family report and H&P. Goal: Initiate diet order with po intake Patient has limited progress towards goal. Pt current nutrition is NPO. Nutrition recommendation: Jevity 1.5 at 20 ml/hr advance by 10 ml q 4 hour to goal rate of 45 ml/hr Last recorded weight is 38.9 kg, down from 41 kg on admit. Bowel Motility:+Bm reported 07/21 Labs Reviewed:Glu 180, Hct 33.6,Hgb 10.1,Na 150, BUN 20, Cr 0.4 Meds Noted:Maxipime, Synthroid, Lopressor, Protonix,Apresoline, LR. Skin: WNL Additional Notes: Patient currently NPO for PEG placement today. Tube feeding recommendations: Jevity 1.5 at 20 ml/hr advance by 10 ml q 4 hour to goal rate of 45 ml/hr. Free water flush 100 ml q 4 hours. Will monitor every Thursday and Thursday.
--- NOTE | 2021-07-23 11:54 | WPDANESEPPF ---
Anes - Initial Pre Proc Eval Procedure: Operation Date: 07/23/21 12:00 Proposed Procedures p Percutaneous Endoscopic Gastrostomy - Gary Lawton MD s Esophagogastroduodenoscopy - Gary Lawton MD Date/Time: 07/23/21 11:54 Surgeon: Renae Devine MD Pre Op Diagnosis: Chest pain Patient Data Age: 81 Gender: F Height: 1.6 m Weight: 38.9 kg Last Vital Signs Temp 99.4 F 07/23/21 10:50 Pulse 108 H 07/23/21 10:50 Resp 22 H 07/23/21 10:50 BP 153/86 H 07/23/21 10:50 Pulse Ox 97 07/23/21 10:50 O2 Del Method Nasal Cannula 07/23/21 10:50 O2 Flow Rate 1 07/23/21 10:50 Allergies Allergy/AdvReac Type Severity Reaction Status Date / Time azithromycin Allergy Severe DIFFICULTY Verified 04/25/21 12:24 BREATHING ciprofloxacin Allergy Unknown Difficulty Verified 04/25/21 12:24 Breathing levofloxacin Allergy Unknown Rash Verified 04/25/21 12:24 Penicillins Allergy Unknown Rash Verified 04/25/21 12:24 erythromycin base AdvReac Unknown Nausea And Verified 04/25/21 12:24 Vomiting codeine AdvReac Difficulty Verified 04/25/21 12:24 Breathing Home Medications Medication Instructions Recorded Confirmed Type cholecalciferol (vitamin D3) 25 25 mcg PO DAILY #90 tabs 06/05/21 07/12/21 Rx mcg (1,000 unit) tablet nitroglycerin 0.4 mg sublingual 0.4 mg sublingual Q5M PRN chest 06/05/21 07/12/21 Rx tablet pain #75 tabs pantoprazole 40 mg tablet,delayed 40 mg PO QAM #90 tabs 06/24/21 07/12/21 Rx release (Protonix) tramadol 50 mg tablet 50 mg PO Q8H PRN pain #60 tabs 06/27/21 07/12/21 Rx nitroglycerin 0.4 mg/hr See Rx Instructions .Route 07/08/21 07/12/21 Rx transdermal 24 hour patch .COMPLEX #30 patches amlodipine 5 mg tablet 5 mg PO DAILY #30 tabs 07/11/21 07/12/21 Rx clopidogrel 75 mg tablet (Plavix) 75 mg PO QMWF 07/12/21 07/12/21 History levothyroxine 25 mcg tablet 1 mcg PO DAILY 07/12/21 07/12/21 History magnesium oxide 400 mg (241.3 mg 400 mg PO QMWF 07/12/21 07/12/21 History magnesium) tablet metoprolol tartrate 25 mg tablet 25 mg PO DAILY 07/12/21 07/12/21 History simvastatin 20 mg tablet 20 mg PO HS 07/12/21 07/12/21 History buspirone 5 mg tablet 5 mg PO BID anxiety #60 tabs 07/22/21 Rx Laboratory Tests 07/18/21 07/23/21 07/23/21 11:01 05:18 05:18 WBC 7.5 K/mm3 K/mm3 (4.5-10.0) RBC 3.89 M/mm3 L M/mm3 (4.2-5.4) Hgb 10.1 g/dL L g/dL (12.0-15.0) Hct 33.6 % L % (37.0-47.0) MCV 86.4 fl fl (80-100) MCH 26.0 pg pg (26-34) MCHC 30.1 g/dl L g/dl (32-36) RDW 14.4 % % (11.5-14.5) Plt Count 182 k/mm3 k/mm3 (150-375) MPV 10.1 fl fl (7.4-10.4) Immature Gran % (Auto) 0.9 % H % (0-0.5) Neut % (Auto) 85.3 % H % (45.5-73.1) Lymph % (Auto) 7.2 % L % (18.3-44.2) [place] % (Auto) 6.1 % % (2.6-8.5) Eos % (Auto) 0.4 % % (0-4.4) Baso % (Auto) 0.1 % L % (0.2-1.2) Lymph # (Auto) 0.54 K/mm3 L K/mm3 (0.9-3.2) [place] # (Auto) 0.5 K/mm3 K/mm3 (0.1-0.6) Eos # (Auto) 0.0 K/mm3 K/mm3 (0-0.3) Baso # (Auto) 0.0 K/mm3 K/mm3 (0.0-0.1) Abs Immat Gran (auto) 0.07 K/mm3 H K/mm3 (0.00-0.031) Absolute Neuts (auto) 6.4 K/mm3 K/mm3 (1.3-6.7) Absolute Nucleated RBC 0.0 K/mm3 K/mm3 (0.0-0.012) Total Counted 100 Neutrophils % (Manual) 71 % % (46-73) Band Neutrophils % 7 % H % (0-6) Lymphocytes % (Manual) 18.0 % % (18-44) Monocytes % (Manual) 3 % % (3-9) Eosinophils % (Manual) 1 % % (0-4) Nucleated RBC % 0.0 % % (0.0-0.2) Abs Neuts (Manual) 5.85 K/mm3 K/mm3 (1.7-7.2) Abs Lymphs (Manual) 1.35 K/mm3 K/mm3 (1.1-4.5) Abs Monocytes (Manual) 0.22 K/mm3 K/mm3 (0.1-0.90) Absolute Eos (Manual) 0.07 K/mm3 K/mm3 (0.02-
[2021-07-23 14:22] LABS: EDCOVIDSCREEN Positive (Negative)
[2021-07-23] MEDS: busPIRone HCL 5 MG TABLET PO (16:45)
[2021-07-23] MEDS: SIMVASTATIN 20 MG TABLET PO (20:25)
[2021-07-23] MEDS: hydrALAZINE HCL 20 MG/ML VIAL 10 MG IV PUSH (21:04)
[2021-07-24] VITALS (16 sets, daily range): BP systolic 123–156; BP diastolic 63–89; PULSE 75–107; RESP 16–20; TEMP 36.1–37; O2SAT 93–99
[2021-07-24] MEDS: LEVOTHYROXINE SODIUM INJ 100 MCG/5 ML VIAL 12.5 MCG IV PUSH (05:54)
[2021-07-24] MEDS: METOPROLOL TARTRATE INJ 5 MG/5 ML VIAL 2.5 MG IV PUSH ×2 (08:16→21:00)
[2021-07-24] MEDS: PANTOPRAZOLE 40 MG TABLET PO (08:16)
[2021-07-24] MEDS: CHOLECALCIFEROL 1,000 UNITS TABLET 1000 UNITS PO (08:16)
[2021-07-24] MEDS: amLODIPine BESYLATE 5 MG TABLET PO (08:17)
[2021-07-24] MEDS: MAGNESIUM OXIDE 400 MG TABLET PO (08:17)
[2021-07-24] MEDS: NITROGLYCERIN 0.4 MG/HR PATCH 1 PATCH TOPICAL (08:17)
[2021-07-24] MEDS: SCOPOLAMINE 1.5 MG PATCH TRANSDERM (08:17)
[2021-07-24] MEDS: busPIRone HCL 5 MG TABLET PO ×2 (08:17→16:35)
[2021-07-24] MEDS: PANTOPRAZOLE SODIUM IV 40 MG VIAL IV PUSH (08:18)
--- NOTE | 2021-07-24 09:08 | WPDANESPN ---
Anes - Prog Note Post-Op Date/Time: 07/24/21 09:08 Cardiovascular status: normal Respiratory status: normal Airway patency: baseline Mental status: baseline Post-Op hydration status: normal Vital Signs: Last Vital Signs Temp 36.9 C 07/24/21 05:00 Pulse 106 H 07/24/21 08:16 Resp 16 07/24/21 05:00 BP 155/77 H 07/24/21 05:00 Pulse Ox 97 07/24/21 05:00 O2 Del Method Nasal Cannula 07/23/21 21:15 O2 Flow Rate 1 07/23/21 21:15 Pain Score (VAS): 1 I/O: Intake & Output 07/23/21 07/24/21 07/24/21 23:59 07:59 15:59 Intake Total 50 575 Output Total 250 400 600 Balance -200 175 -600 Laboratory Tests 07/23/21 05:18 07/23/21 05:18 07/23/21 14:05 SARS-CoV-2 IgG/IgM Ag?Rapid Positive Microbiology 07/18/21 11:01 Cerebral Spinal Fluid Gram Stain - Final 07/18/21 11:01 Cerebral Spinal Fluid CSF Culture - Final 07/18/21 11:01 Cerebral Spinal Fluid Acid Fast Bacilli Culture - Preliminary Patient Feedback: Patient satisfied with anesthetic care.
[2021-07-24] MEDS: SIMVASTATIN 20 MG TABLET PO (20:59)
[2021-07-25] VITALS (11 sets, daily range): BP systolic 116–157; BP diastolic 68–90; PULSE 88–107; RESP 16–22; TEMP 36.1–36.6; O2SAT 91–97
[2021-07-25 05:47] LABS: Hematocrit 33.1 % (37.0-47.0); Hemoglobin 9.7 g/dL (12.0-15.0); Mean Corpuscular HGB Conc 29.3 g/dl (32-36); Mean Corpuscular Hemoglobin 25.6 pg (26-34); Mean Corpuscular Volume 87.3 fl (80-100); Platelet Count Result 198 k/mm3 (150-375); Red Blood Count 3.79 M/mm3 (4.2-5.4); Red Cell Distribution Width 14.1 % (11.5-14.5); White Blood Count 9.1 K/mm3 (4.5-10.0)
[2021-07-25] MEDS: LEVOTHYROXINE SODIUM INJ 100 MCG/5 ML VIAL 12.5 MCG IV PUSH (06:04)
[2021-07-25 06:13] LABS: Anion Gap 5 mmol/L (8-16); Blood Urea Nitrogen 18 mg/dL (7-17); Calcium 8.3 mg/dL (8.4-10.2); Carbon Dioxide 31 mmol/L (22-30); Chloride 108 mmol/L (98-107); Estimated CRCL calculation 53 ml/min; Estimated Glomerular Filt Rate > 60; Glucose 163 mg/dL (65-110); Magnesium 2.5 mg/dL (1.6-2.3); Potassium 2.9 mmol/L (3.4-5.0); Sodium 144 mmol/L (137-145)
[2021-07-25] MEDS: NITROGLYCERIN 0.4 MG/HR PATCH 1 PATCH TOPICAL (08:25)
[2021-07-25] MEDS: PANTOPRAZOLE SODIUM IV 40 MG VIAL IV PUSH (08:25)
[2021-07-25] MEDS: busPIRone HCL 5 MG TABLET PO ×2 (08:25→16:44)
[2021-07-25] MEDS: METOPROLOL TARTRATE INJ 5 MG/5 ML VIAL 2.5 MG IV PUSH (08:25)
[2021-07-25] MEDS: amLODIPine BESYLATE 5 MG TABLET PO (08:25)
[2021-07-25] MEDS: CHOLECALCIFEROL 1,000 UNITS TABLET 1000 UNITS PO (08:25)
[2021-07-25] MEDS: METOPROLOL TARTRATE 12.5 MG TABLET PO (20:04)
[2021-07-25] MEDS: SIMVASTATIN 20 MG TABLET PO (20:05)
[2021-07-26 05:00] VITALS: BP 112/77; PULSE 114; RESP 20; TEMP 36; O2SAT 95
[2021-07-26] MEDS: LEVOTHYROXINE SODIUM 25 MCG TABLET PO (05:33)
[2021-07-26 06:50] LABS: Hematocrit 29.5 % (37.0-47.0); Hemoglobin 8.7 g/dL (12.0-15.0); Mean Corpuscular HGB Conc 29.5 g/dl (32-36); Mean Corpuscular Hemoglobin 25.7 pg (26-34); Mean Corpuscular Volume 87.3 fl (80-100); Mean Platelet Volume 10.8 fl (7.4-10.4); Platelet Count Result 207 k/mm3 (150-375); Red Blood Count 3.38 M/mm3 (4.2-5.4); Red Cell Distribution Width 14.2 % (11.5-14.5); White Blood Count 9.1 K/mm3 (4.5-10.0)
[2021-07-26 07:07] LABS: Anion Gap 4 mmol/L (8-16); Blood Urea Nitrogen 20 mg/dL (7-17); Calcium 7.8 mg/dL (8.4-10.2); Carbon Dioxide 33 mmol/L (22-30); Chloride 106 mmol/L (98-107); Estimated CRCL calculation 53 ml/min; Estimated Glomerular Filt Rate > 60; Glucose 143 mg/dL (65-110); Magnesium 2.5 mg/dL (1.6-2.3); Sodium 143 mmol/L (137-145)
[2021-07-26] MEDS: amLODIPine BESYLATE 5 MG TABLET PO (08:01)
[2021-07-26] MEDS: METOPROLOL TARTRATE 12.5 MG TABLET PO (08:01)
[2021-07-26] MEDS: CHOLECALCIFEROL 1,000 UNITS TABLET 1000 UNITS PO (08:01)
[2021-07-26] MEDS: MAGNESIUM OXIDE 400 MG TABLET PO (08:01)
[2021-07-26] MEDS: busPIRone HCL 5 MG TABLET PO (08:01)
[2021-07-26] MEDS: NITROGLYCERIN 0.4 MG/HR PATCH 1 PATCH TOPICAL (08:02)
[2021-07-26 08:49] VITALS: BP 140/65; PULSE 115; RESP 20; TEMP 36; O2SAT 92
--- NOTE | 2021-07-26 10:56 | PM.DS ---
DS: Admitting Diagnosis Discharge Date 07/26/2021 Admitting Diagnosis Headache DS: Discharge Diagnosis Discharge Diagnosis (1) Metabolic acidosis: Code(s): E87.2 - Acidosis Status: Acute (2) Encephalopathy: Code(s): G93.40 - Encephalopathy, unspecified Status: Acute (3) Altered mental status: Code(s): R41.82 - Altered mental status, unspecified Status: Acute (4) History of aortic valve replacement with bioprosthetic valve: Code(s): Z95.3 - Presence of xenogenic heart valve Status: Acute (5) Uncontrolled hypertension: Code(s): I10 - Essential (primary) hypertension Status: Acute (6) Troponin level elevated: Code(s): R77.8 - Other specified abnormalities of plasma proteins Status: Acute (7) Nausea & vomiting: Code(s): R11.2 - Nausea with vomiting, unspecified Status: Acute (8) Headache: Code(s): R51.9 - Headache, unspecified Status: Acute (9) Hypertension: Code(s): I10 - Essential (primary) hypertension Status: Acute (10) Anxiety: Code(s): F41.9 - Anxiety disorder, unspecified Status: Acute (11) Acute hypokalemia: Code(s): E87.6 - Hypokalemia Status: Acute (12) Dysphagia: Code(s): R13.10 - Dysphagia, unspecified Status: Acute (13) UTI (urinary tract infection): Qualifiers: Urinary tract infection type: site unspecified Hematuria presence: without hematuria Qualified Code(s): N39.0 - Urinary tract infection, site not specified Code(s): N39.0 - Urinary tract infection, site not specified Status: Acute (14) Hyperlipidemia, unspecified: Qualifiers: Hyperlipidemia type: unspecified Qualified Code(s): E78.5 - Hyperlipidemia, unspecified Code(s): E78.5 - Hyperlipidemia, unspecified Status: Acute (15) Altered level of consciousness: Code(s): R40.4 - Transient alteration of awareness Status: Acute (16) Acute hypoxemic respiratory failure: Code(s): J96.01 - Acute respiratory failure with hypoxia Status: Acute Plan 07/17/21 Patient with reduced level of consciousness. I have called to her daughter. Daughter states the patient had a 1 week history of severe headache. They called to the primary care physician who did a telehealth visit and noted the patient's blood pressure to be elevated. PCP started the patient on blood pressure medication. Headaches did not resolve nor improve and patient came to the hospital for further care. After hospitalization patient has become nearly obtunded nonverbal lethargic unable to take PO safely. Although this could be metabolic encephalopathy secondary to E coli UTI, patient has been on appropriate antibiotic therapy for 5 days without improvement. Encephalopathy could also be associated with hypertension however even when blood pressure is improved mental status does not. Will speak with Dr. Cardona to evaluate for EEG and LP. -cont abx -cont NPO -cont IV BP coverage q 6hr -cont supportive care -spoke with Neurology to confirm plan for EEG and LP -Spoke with POA who agrees to LP -Lovenox VTEP is discontinued -Clopidogrel has not been administered since admission -c/s IR for LP 07/18/21 Rapid response Team call today for acute hypoxemic respiratory failure status post LP with IR Patient is placed on non-rebreather mask 15 L with improvement in her oxygenation ABGs without significant findings other than need for oxygen supplementation and tachycardia improved with low-dose metoprolol administration. Patient has had ongoing intermittent episodes of hypertension she is responding to enalaprilat as needed. Now the patient is more alert I will consult speech therapy to evaluate her swallowing ability hopefully tomorrow she will have ongoing improvement cognition and be able to follow commands. CTA PE protocol pending Transfer to step-down for respiratory fa
[2021-07-26 11:51] VITALS: BP 134/59; PULSE 113; RESP 18; TEMP 36.4; O2SAT 92
--- NOTE | 2021-07-26 13:44 | PC.NURSE ---
Patient discharged home with hospice via EMS. [facility] called and notified as was the POA.
== END 2021-07-26 13:45 | disposition hospice, home (50) | DRG 689 ==
LOC: ANHED 16:28 → ANHIMU 17:19 → ANH3MED 07-13 13:42
PROVIDERS: Hospitalist; Internal Medicine Gastroenterology; Student in an Organized Health Care Education/Training Program; Admitting Provider Family Medicine; Emergency Provider Emergency Medicine; PCP Internal Medicine; Visit Provider Family Medicine
PROC: 0DH63UZ Insertion of Feeding Device into Stomach, Percutaneous Approach (ICD-10-PCS; CPT 43246; principal; 2021-07-23 12:00)
PROC: 0DJ08ZZ Inspection of Upper Intestinal Tract, Via Natural or Artificial Opening Endoscopic (ICD-10-PCS; CPT 43235; 2021-07-23 12:00)
DX: N39.0 Urinary tract infection, site not specified (principal); U07.1 COVID-19; G93.41 Metabolic encephalopathy; J96.01 Acute respiratory failure with hypoxia; R64 Cachexia; Z68.1 Body mass index [BMI] 19.9 or less, adult; E87.2 Acidosis; E46 Unspecified protein-calorie malnutrition; E87.1 Hypo-osmolality and hyponatremia; I16.0 Hypertensive urgency; B96.20 Unspecified Escherichia coli [E. coli] as the cause of diseases classified elsewhere; K21.9 Gastro-esophageal reflux disease without esophagitis; R51.9 Headache, unspecified; R11.2 Nausea with vomiting, unspecified; F41.1 Generalized anxiety disorder; E87.6 Hypokalemia; E78.2 Mixed hyperlipidemia; R40.4 Transient alteration of awareness; E03.9 Hypothyroidism, unspecified; I25.10 Atherosclerotic heart disease of native coronary artery without angina pectoris; D50.9 Iron deficiency anemia, unspecified; D63.8 Anemia in other chronic diseases classified elsewhere; M17.0 Bilateral primary osteoarthritis of knee; M34.9 Systemic sclerosis, unspecified; R13.10 Dysphagia, unspecified; Z95.2 Presence of prosthetic heart valve; Z87.11 Personal history of peptic ulcer disease
CPT/HCPCS: 36415; 36569; 36600; 43246; 43752; 62328; 70450; 70551; 71045; 74018; 80048; 80053; 80202; 80307; 81001; 82140; 82375; 82550; 82607; 82728; 82746; 82805; 82945; 82948; 83050; 83540; 83550; 83605; 83735; 84100; 84145; 84157; 84439; 84443; 84466; 84484; 85025; 85027; 85610; 85730; 86140; 86403; 86592; 86617; 86850; 86900; 86901; 87015; 87040; 87070; 87077; 87086; 87088; 87102; 87116; 87186; 87206; 87426; 87529; 87798; 88108; 89051; 92507; 92523; 92526; 92610; 93005; 95816; 96361; 96365; 96366; 96367; 96375; 96376; 97161; 97165; 99285; A9270; C1751; C9113; C9803; G0378; J0131; J0360; J0692; J1650; J1756; J1940; J2405; J2550; J2704; J3370; J3480; J7040; J7042; J7120